=== PATIENT | female | born 1970 | race Caucasian/White ===

== ENCOUNTER → 2020-10-28 09:04 | Outpatient (BNVA) | payer MEDICARE, MEDICAID, SELFPAY | PROVIDERS: Visit Provider Physician Assistant | DX: M77.01 Medial epicondylitis, right elbow (principal) | CPT/HCPCS: 99202 ==

== ENCOUNTER 2020-12-08 15:00 | Outpatient (RCR) | payer MEDICARE, MEDICAID, SELFPAY ==
--- NOTE | 2020-11-03 09:02 | MHC.OT.OEV ---
[address] [phone] F: [phone] Occupational Therapy Evaluation Diagnosis: Right medial epicondylitis Date of Onset: 10/10/20 Date of Surgery: Attending Provider: Kayla Lynch PA-C Prescribed Treatment: Eval and Treat MD Follow Up Appointment: History of Current Condition: Pt woke w/ pain in her posterior elbow, worse w/ activity. Referred to [facility] and now to OT for conservative treatment. Will return to ortho for cortisone injection if no positive change. 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 w/ daily activities, watches Living Situation, Family and/or Social Support: Lives w/ boyfriend Current Level of Function and Occupation Self Care, Employment, Leisure: Difficulty stapling tags to clothes Sleep: Terrible Driving: WNL Vision: Balance: Pain Assessment Pain Score: 5 Pain Scale Used: Numeric (0 - 10) Pain Location and Description: Pain free at rest Ache in posterior elbow Tenderness to palpate right medial epicondye Aggravating Factors: Gripping, bending, forceful use Alleviating Factors: Uses non-dominant hand more offer Ice Ibuprophen Tylenol Skin and Soft Tissue Assessment Skin and Soft Tissue: Comments: Nerve assessment Ulnar Nerve: Right Impaired Median Nerve: Radial Nerve: Comments: D5 add 4/5 Sensory Assessment Temperature: WFL Light Touch: WFL Proprioception: WFL Vibration: Comments: [place] 3.61 Edema Assessment Upper Extremity: Right Impaired Lower Extremity: Comments: Mild edema in mid medial forearm and at medial epicondyle Dexterity Assessment Dexterity: WFL Comments: Special Tests Comments: Pain w/ resisted wrist flexion AROM(PROM) Strength Cervical Cervical Flexion: Cervical Extension: Cervical Lateral Flexion: Cervical Rotation: Comments: WNL Shoulder Flexion: Extension: Abduction: Internal Rotation: External Rotation: Comments: WNL Flexion: Extension: Abduction: Internal Rotation: External Rotation: Comments: Elbow Flexion: R 125 L 150 Extension: R 0 L 0 Pronation: Supination: Comments: Pain w/ end range ext and flex in right elbow Flexion: Extension: Pronation: Supination: Comments: Wrist Flexion: R 66 L 52 Extension: R 66 L 54 Ulnar Deviation: Radial Deviation: Comments: Flexion: R 4 L 5 Extension: Ulnar Deviation: Radial Deviation: Comments: Thumb Thumb CMC Flexion: Thumb MCP Flexion: Thumb IP Flexion: Radial Abduction: Palmar Abduction: [place] (Kapandji 0-10): Comments: Digits Index MCP: PIP: DIP: Long MCP: PIP: DIP: Ring MCP: PIP: DIP: Small MCP: PIP: DIP: Comments: WFL Gross Grasp: R 24 L 35 (elbow flex) Lateral Pinch: Two-Point Pinch: Three-Jaw Toño: Comments: R GG 20lb w/ elbow extened and pain Patient Education Primary Language: German 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 Patient demonstrates Patient verbalizes Barriers to Learning: None Readiness for Learning: Accepting Who was educated? Patient Comments: Medial Epi program Plan of Care Assessment: Mary presents w/ about two weeks of persistent pain in right medial and posterior elbow. 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 She has pain w/ end range elbow flex and ext, with decreased elbow flex. She also has tenderness to palpate medial epicondyle and w/ resisted wrist extension. She will benefit from cont'd OT services for conservative management of medial epicondylitis. STG Duration: 2 weeks Short Term Goals: Ind w/ activity modification Ind w/ CFB wear Ind w/ sleep modifications Right gross grasp >30 lb Pt to progress to eccentric exercises for HEP LTG Duration: 6 weeks Long-Term Goals: Quickdash score <20 Right gross grasp >35lb Full pain free elbow ROM <2/10 activity w/ work tasks Frequency and Duration: The patient will be seen 6 weeks Treatment Plan: Therapeutic Exercise Therapeutic Activity Home Exercise Program Splinting Patient Education Edema Control ADL Training Ultrasound NMES Iontophoresis MHP Cold Packs Soft Tissue Mobilization Kinesiotaping Electronically Signed By: Lizzy Grullon OTR/L Reviewed/agree with student documentation: N/A Therapist: Please sign and return to therapist, Thank you for your referral.
--- NOTE | 2020-12-13 08:40 | MHC.OT.DC ---
[address] [phone] F: [phone] Occupational Therapy Discharge Note Provider: Kayla Lynch PA-C Diagnosis: Right medial epicondylitis Date of Evaluation: 11/03/20 Date of Discharge: 12/08/20 Treatments to Date: 9 Discharge Status: Achieved Goals Improved Function Independent with HEP Discharge Summary: Low pain in right medial epicondyle, good follow through w/ CFB wear, minimal functional deficits. Gross grasp R 25lb (pain free) L 42lb QuickDASH score 7.5 Electronically Signed By: Lizzy Grullon, OTR/L Please Sign and return to therapist, thank you for your referral.
== END 2020-12-13 08:44 | disposition other institution (70) ==
LOC: HO.OT 15:00
PROVIDERS: PCP Internal Medicine; Visit Provider Physician Assistant
DX: M77.01 Medial epicondylitis, right elbow (principal)
CPT/HCPCS: 97033; 97035; 97110; 97140; 97165

== ENCOUNTER 2021-01-26 09:07 | Outpatient (REF) | payer MEDICARE, MEDICAID, SELFPAY ==
--- NOTE | ~2021-01-26 | MM_ITS ---
EXAMINATION: MM SCREENING DIGITAL BREAST TOMOSYNTHESIS, BILATERAL CLINICAL INFORMATION: Screening. Asymptomatic. The lifetime risk of breast cancer based on the Tyrer-Cuzick Model is 6%. COMPARISON: Mammography: 08/29/2018, 08/13/2017, outside mammography 05/11/2016 ([facility]). TECHNIQUE: Digital breast tomosynthesis is performed in both the craniocaudal and mediolateral oblique views along with computer-aided detection (CAD). Synthesized 2D images are generated from the tomosynthesis. Additional right MLO view is provided. FINDINGS: There are scattered areas of fibroglandular density (ACR BI-RADS breast composition Category b). There are no significant masses, abnormal calcifications, or other abnormalities. Parenchymal pattern is similar to prior studies. There is incidental intramammary node posterior upper outer left breast. Skin contours are smooth. No developing density. No significant changes. MM/MM tomosynthesis screening BI IMPRESSION: No mammographic evidence of malignancy. ASSESSMENT: BI-RADS 2: Benign RECOMMENDATION: Routine annual mammography screening. This patient's information was entered into a reminder system with a target due date for their next mammogram.
== END 2021-01-26 09:08 | disposition home or self-care (01) ==
LOC: HO.MAMMO 09:07
PROVIDERS: Visit Provider Physician Assistant
DX: Z12.31 Encounter for screening mammogram for malignant neoplasm of breast (principal)
CPT/HCPCS: 77063; 77067

== ENCOUNTER 2021-10-10 11:44 | Outpatient (REF) | payer MEDICARE, MEDICAID, SELFPAY ==
--- NOTE | ~2021-10-10 | XR_ITS ---
EXAMINATION: XR KNEE, RIGHT CLINICAL INFORMATION: Pain COMPARISON: None TECHNIQUE: Four views of the right knee. FINDINGS: Bone alignment is normal. No acute fracture or dislocation is seen. There is a small soft tissue calcification or ossification adjacent to the fibular head and lateral tibial plateau, question related to old trauma. The joint spaces are normal. There are osteophytes at the quadriceps tendon insertion and patellar tendon origin and insertion. There is no joint effusion. XR/XR knee RT 4V IMPRESSION: Mild degenerative changes.
[2021-10-10 14:04] LABS: MANUAL DIFF FLAG NO
[2021-10-10 14:11] LABS: Basophils Percent Auto 0.3 % (0-2); Eosinophils Percent Auto 0.3 % (0-4); Hematocrit 38.4 % (37.0-47.0); Hemoglobin 11.8 g/dl (12.0-16.0); Imm Gran Abs Auto 0.05 X10*3/uL (0.00-0.03); Imm Gran Pct Auto 0.4 % (0.0-0.4); Lymphocytes Absolute Auto 1.5 X10*3/uL (1.2-4.9); Lymphocytes Percent Auto 12.5 % (20-40); Mean Corpuscular HGB Conc 30.7 g/dl (31.0-35.0); Mean Corpuscular Hemoglobin 30.5 pg (27.0-33.0); Mean Corpuscular Volume 99.2 fL (80.0-98.0); Mean Platelet Volume 11.6 fL (9.4-12.3); Monocytes Absolute Auto 0.9 X10*3/uL (0.1-1.2); Monocytes Percent Auto 7.7 % (2-11); Neutrophils Absolute Auto 9.4 x10*3/uL (2.0-8.3); Neutrophils Percent Auto 78.8 % (45-73); Platelet Count 307 X10*3/uL (160-400); Red Blood Count 3.87 X10*6/uL (4.20-5.50); Red Cell Distribution Width 14.4 % (11.0-16.0); White Blood Count 11.9 X10*3/uL (4.8-10.8)
[2021-10-10 14:21] LABS: Alanine Aminotransferase 30 U/L (0-31); Albumin Level 4.4 g/dL (3.5-5.0); Alkaline Phosphatase 132 U/L (39-117); Anion Gap 15 (12-20); Aspartate Amino Transferase 23 U/L (5-31); Bilirubin Total 0.4 mg/dL (0.0-1.0); Blood Urea Nitrogen 17 mg/dL (9-16); Calcium 9.7 mg/dL (8.4-10.2); Carbon Dioxide 25 mmol/L (22-29); Chloride 103 mmol/L (96-108); Estimated Glomerular Filt Rate 54; Glucose Random 103 mg/dL (60-115); Potassium 4.4 mmol/L (3.3-5.1); Sodium 139 mmol/L (135-145); Total Protein 7.4 g/dL (6.5-8.0)
[2021-10-10 14:45] LABS: Thyroid Stimulating Hormone 1.03 uIU/mL (0.32-4.0)
== END 2021-10-10 11:45 | disposition home or self-care (01) ==
LOC: HO.HMGCX 11:44
PROVIDERS: PCP Internal Medicine; Visit Provider Physician Assistant
DX: M25.561 Pain in right knee (principal); I10 Essential (primary) hypertension; E03.8 Other specified hypothyroidism
CPT/HCPCS: 36415; 73564; 80053; 84439; 84443; 85025

== ENCOUNTER 2022-05-05 18:37 | Emergency (ER) | payer MEDICARE, MEDICAID, SELFPAY ==
[2022-05-05 20:02] VITALS: BP 119/67; PULSE 70; RESP 16; TEMP 37.1; O2SAT 95; BMI 33.7
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
== END 2022-05-05 22:57 | disposition home or self-care (01) ==
PROVIDERS: Emergency Provider Emergency Medicine; PCP Internal Medicine
DX: Z04.89 Encounter for examination and observation for other specified reasons (principal)
CPT/HCPCS: 99282

== ENCOUNTER 2022-05-23 12:31 | Outpatient (REF) | payer MEDICARE, MEDICAID, SELFPAY ==
--- NOTE | ~2022-05-23 | MM_ITS ---
EXAMINATION: MM SCREENING DIGITAL BREAST TOMOSYNTHESIS, BILATERAL CLINICAL INFORMATION: Screening. Asymptomatic. The lifetime risk of breast cancer based on the Tyrer-Cuzick Model is 6%. COMPARISON: Mammography: 01/26/2021, 08/29/2018, 08/13/2017 TECHNIQUE: Digital breast tomosynthesis is performed in both the craniocaudal and mediolateral oblique views along with computer-aided detection (CAD). Synthesized 2D images are generated from the tomosynthesis. FINDINGS: There are scattered areas of fibroglandular density (ACR BI-RADS breast composition Category b). There are no significant masses, abnormal calcifications, or other abnormalities. Parenchymal pattern is similar to prior studies. There is no developing density or architectural abnormality. The axilla and skin contours are unremarkable. No significant changes. MM/MM tomosynthesis screening BI IMPRESSION: No mammographic evidence of malignancy. ASSESSMENT: BI-RADS 1: Negative RECOMMENDATION: Routine annual mammography screening. This patient's information was entered into a reminder system with a target due date for their next mammogram.
== END 2022-05-23 12:32 | disposition home or self-care (01) ==
LOC: HO.MAMMO 12:31
PROVIDERS: Visit Provider Internal Medicine
DX: Z12.31 Encounter for screening mammogram for malignant neoplasm of breast (principal)
CPT/HCPCS: 77063; 77067

== ENCOUNTER 2022-11-02 15:10 | Emergency (ER) | payer MEDICARE, MEDICAID, SELFPAY ==
[2022-11-02 15:36] VITALS: BP 139/76; PULSE 73; RESP 16; TEMP 36.6; O2SAT 97; BMI 34.3
--- NOTE | 2022-11-02 15:36 | ED_ITS ---
HPI - General Adult General Chief complaint: General Medical Stated complaint: fecal incontinence? Time Seen by Provider: 11/02/22 20:59 Related Data Home Medications Medication Instructions Recorded Confirmed buspirone 15 mg tablet 15 mg PO BID 10/28/20 fluoxetine 20 mg capsule 20 mg PO DAILY 10/28/20 fluoxetine 40 mg capsule 40 mg PO QAM 10/28/20 ibuprofen 800 mg tablet 800 mg PO TID 10/28/20 lamotrigine 150 mg tablet 300 mg PO DAILY 10/28/20 levothyroxine 50 mcg tablet 50 mcg PO DAILY 10/28/20 lisinopril 5 mg tablet 5 mg PO DAILY 10/28/20 melatonin 5 mg tablet 10 mg PO BEDTIME PRN 10/28/20 metoprolol tartrate 50 mg tablet 50 mg PO DAILY 10/28/20 naltrexone 50 mg tablet 50 mg PO BEDTIME 10/28/20 simvastatin 20 mg tablet 20 mg PO DAILY 10/28/20 sumatriptan succinate 100 mg tablet 100 mg PO DAILY PRN 10/28/20 tramadol 50 mg tablet 50 mg PO DAILY PRN 10/28/20 valacyclovir 500 mg tablet 500 mg PO DAILY 10/28/20 Previous Rx's Medication Instructions Recorded ondansetron 4 mg disintegrating 4 mg PO Q8H PRN nausea and 11/02/22 tablet vomiting #10 tabs vancomycin 125 mg capsule 125 mg PO QID 14 days #56 caps 11/02/22 levofloxacin 750 mg tablet 750 mg PO DAILY 7 days #7 tabs 11/06/22 loperamide 2 mg capsule 2 mg PO Q6H PRN loose stool #30 11/06/22 (Anti-Diarrheal (loperamide)) caps Allergies Allergy/AdvReac Type Severity Reaction Status Date / Time promethazine [From PHENERGAN] Allergy Severe ALTERED Verified 11/05/22 22:38 MENTAL STATUS meperidine [Demerol] Allergy Unknown nausea Verified 11/05/22 22:38 fenegrine Allergy Mild Nausea Uncoded 10/28/20 09:17 COUNT INCLUDES THE [facility] Past Medical History Medical History Bipolar 1 disorder Depression High cholesterol Hypertension Surgical History History of bunionectomy of right great toe History of carpal tunnel surgery of left wrist History of carpal tunnel surgery of right wrist History of section History of hysterectomy Family History Family History Mother No problems noted. Father No problems noted. 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 Admits recently finished abx 1 week ago. Denies back pain, injury or fall. Denies fever, chills abd soft with RLQ & LLQ ttp, no rebound or guarding Labs, UA, C diff/stool studies ordered Medications Administered Discontinued Medications Generic Name Dose Route Start Last Admin Trade Name Freq PRN Reason Stop Dose Admin Vancomycin HCl 125 mg 11/02/22 21:10 11/02/22 22:03 Vancomycin Hcl 125 Mg Capsule PO 11/02/22 21:11 125 mg ONCE ONE Administration Medical Decision Making Lab Data 11/02/22 15:46 11/02/22 15:46 Labs: Lab Results 11/02/22 11/02/22 11/02/22 Range/Units 15:46 15:46 20:40 WBC 9.6 (4.8-10.8) X10*3/uL RBC 4.03 L (4.20-5.50) X10*6/uL Hgb 12.3 (12.0-16.0) g/dl Hct 38.5 (37.0-47.0) % MCV 95.5 (80.0-98.0) fL MCH 30.5 (27.0-33.0) pg MCHC 31.9 (31.0-35.0) g/dl RDW 13.8 (11.0-16.0) % Plt Count 278 (160-400) X10*3/uL MPV 10.2 (9.4-12.3) fL Immature Gran % (Auto) 0.3 (0.0-0.4) % Neut % (Auto) 65.2 (45-73) % Lymph % (Auto) 20.4 (20-40) % [place] % (Auto) 11.0 (2-11) % Eos % (Auto) 2.7 (0-4) % Baso % (Auto) 0.4 (0-2) % Lymph # (Auto) 2.0 (1.2-4.9) X10*3/uL [place] # (Auto) 1.1 (0.1-1.2) X10*3/uL Eos # (Auto) 0.3 (0.0-0.4) X10*3/uL Baso # (Auto) 0.0 (0.0-0.2) X10*3/uL Abs Immat Gran (auto) 0.03 (0.00-0.03) X10*3/uL Absolute Neuts (auto) 6.3 (2.0-8.3) x10*3/uL Absolute Nucleated RBC 0.000 (0.0-0.012) X10*3/uL Nucleated RBC % (auto) 0.0 (0.0-0.2) /100WBC Sodium 140 (135-145) mmol/L Potassium 4.3 (3.3-5.1) mmol/L Chloride 105 (96-108) mmol/L Carbon Dioxide 25 (22-29) mmol/L Anion Gap 14 (12-20) BUN 17 H (9-16) mg/dL Creatinine 1.12 (0.5-1.4) mg/dL Estim Creat Clear Calc 52.0 Estimated GFR 51 Random Glucose 88 (60-115) mg/dL Calcium 9.1 D (8.4-10.2) mg/dL Magnesium 1.9 (1.6-2.6) mg/dL Total Bilirubin 0.4 (0.0-1.0) mg/dL Direct Bilirubin < 0.2 (0.0-0.5) mg/dL AST 19 (5-31) U/L ALT 20 (0-31) U/L Alkaline Phosphatase 122 H (39-117) U/L Total Protein 7.3 (6.5-8.0) g/dL Albumin 4.4 (3.5-5.0) g/dL Lipase 69 (8-78) U/L Stool Occult Blood NEGATIVE (NEGATIVE) Stl C. cayetanensis PCR (Not Detect.) Stool Rotavirus A PCR (Not Detect.) Stl Adenov F 40/41 PCR (Not Detect.) Stool Astrovirus (PCR) (Not Detect.) Stool Campylobacter PCR (Not Detect.) Stool Cryptosporidium PCR (Not Detect.) Stl Sh Tox Pr E STEC PCR (Not Detect.) Stool E coli O157 PCR (Not Detect.) Stl Enterotoxigenic E PCR (Not Detect.) Stool EPEC (PCR) (Not Detect.) Stool EAEC (PCR) (Not Detect.) Stl E. histolytica PCR (Not Detect.) Stool Giardia Lamblia PCR (Not Detect.) Stl P. shigelloides PCR (Not Detect.) Stool Salmonella PCR (Not Detect.) Stool Sapovirus (PCR) (Not Detect.) Stl Shigella/EIEC PCR (Not Detect.) St Y.enterocolitica PCR (Not Detect.) Stool Vibrio (PCR) (Not Detect.) Stl Vibrio cholerae PCR (Not Detect.) Stl Norovirus GI/GII PCR (Not Detect.) C. difficile Tox B Gene (Negative) 11/02/22 11/02/22 Range/Units 21:10 21:10 WBC (4.8-10.8) X10*3/uL RBC (4.20-5.50) X10*6/uL Hgb (12.0-16.0) g/dl Hct (37.0-47.0) % MCV (80.0-98.0) fL MCH (27.0-33.0) pg MCHC (31.0-35.0) g/dl RDW (11.0-16.0) % Plt Count (160-400) X10*3/uL MPV (9.4-12.3) fL Immature Gran % (Auto) (0.0-0.4) % Neut % (Auto) (45-73) % Lymph % (Auto) (20-40) % [place] % (Auto) (2-11) % Eos % (Auto) (0-4) % Baso % (Auto) (0-2) % Lymph # (Auto) (1.2-4.9) X10*3/uL [place] # (Auto) (0.1-1.2) X10*3/uL Eos # (Auto) (0.0-0.4) X10*3/uL Baso # (Auto) (0.0-0.2) X10*3/uL Abs Immat Gran (auto) (0.00-0.03) X10*3/uL Absolute Neuts (auto) (2.0-8.3) x10*3/uL Absolute Nucleated RBC (0.0-0.012) X10*3/uL Nucleated RBC % (auto) (0.0-0.2) /100WBC Sodium (135-145) mmol/L Potassium (3.3-5.1) mmol/L Chloride (96-108) mmol/L Carbon Dioxide (22-29) mmol/L Anion Gap (12-20) BUN (9-16) mg/dL Creatinine (0.5-1.4) mg/dL Estim Creat Clear Calc Estimated GFR Random Glucose (60-115) mg/dL Calcium (8.4-10.2) mg/dL Magnesium (1.6-2.6) mg/dL Total Bilirubin (0.0-1.0) mg/dL Direct Bilirubin (0.0-0.5) mg/dL AST (5-31) U/L ALT (0-31) U/L Alkaline Phosphatase (39-117) U/L Total Protein (6.5-8.0) g/dL Albumin (3.5-5.0) g/dL Lipase (8-78) U/L Stool Occult Blood (NEGATIVE) Stl C. cayetanensis PCR Not Detected (Not Detect.) Stool Rotavirus A PCR Not Detected (Not Detect.) Stl Adenov F 40/41 PCR Not Detected (Not Detect.) Stool Astrovirus (PCR) Not Detected (Not Detect.) Stool Campylobacter PCR Not Detected (Not Detect.) Stool Cryptosporidium PCR Not Detected (Not Detect.) Stl Sh Tox Pr E STEC PCR Not Detected (Not Detect.) Stool E coli O157 PCR Not applicable (Not Detect.) Stl Enterotoxigenic E PCR Not Detected (Not Detect.) Stool EPEC (PCR) Detected A (Not Detect.) Stool EAEC (PCR) Not Detected (Not Detect.) Stl E. histolytica PCR Not Detected (Not Detect.) Stool Giardia Lamblia PCR Not Detected (Not Detect.) Stl P. shigelloides PCR Not Detected (Not Detect.) Stool Salmonella PCR Not Detected (Not Detect.) Stool Sapovirus (PCR) Not Detected (Not Detect.) Stl Shigella/EIEC PCR Not Detected (Not Detect.) St Y.enterocolitica PCR Not Detected (Not Detect.) Stool Vibrio (PCR) Not Detected (Not Detect.) Stl Vibrio cholerae PCR Not Detected (Not Detect.) Stl Norovirus GI/GII PCR Not Detected (Not Detect.) C. difficile Tox B Gene NEGATIVE (Negative) Discharge Plan Discharge Clinical Impression: C. difficile colitis Patient Disposition: Home, Self-Care Instructions: C. Diff (Clostridioides Difficile) Infection (ED), Acute Diarrhea (ED) Additional Instructions: You were seen today for fecal incontinence, diarrhea, change in the smell of her stool. You were recently on antibiotics. Your diagnosis most concerning for C diff colitis. This will be treated with oral antibiotics, vancomycin 125 mg 4 times daily. I am recommending taking probiotic, fiber supplementation, bananas, rice to help bulk your stool. Make sure to keep herself appropriately hydrated as she could become dehydrated with diarrhea. Should you have severe abdominal pain, high fevers, any other concerning symptoms, please return to the emergency department for re-evaluation. Prescriptions: New vancomycin 125 mg capsule 125 mg PO QID 14 Days Qty: 56 0RF ondansetron 4 mg tablet,disintegrating 4 mg PO Q8H PRN (Reason: nausea and vomiting) Qty: 10 0RF No Action loperamide [Anti-Diarrheal (loperamide)] 2 mg capsule 2 mg PO Q6H PRN (Reason: loose stool) Qty: 30 0RF levofloxacin 750 mg tablet 750 mg PO DAILY 7 Days Qty: 7 0RF Interventions: ED Discharge Assessment Last Done: 11/02/22 22:24 Discharge Date/Time: 11/02/22 22:25
[2022-11-02 15:49] LABS: MANUAL DIFF FLAG NO
[2022-11-02 15:51] LABS: Basophils Percent Auto 0.4 % (0-2); Eosinophils Absolute Auto 0.3 X10*3/uL (0.0-0.4); Eosinophils Percent Auto 2.7 % (0-4); Hematocrit 38.5 % (37.0-47.0); Hemoglobin 12.3 g/dl (12.0-16.0); Imm Gran Abs Auto 0.03 X10*3/uL (0.00-0.03); Imm Gran Pct Auto 0.3 % (0.0-0.4); Lymphocytes Percent Auto 20.4 % (20-40); Mean Corpuscular HGB Conc 31.9 g/dl (31.0-35.0); Mean Corpuscular Hemoglobin 30.5 pg (27.0-33.0); Mean Corpuscular Volume 95.5 fL (80.0-98.0); Mean Platelet Volume 10.2 fL (9.4-12.3); Monocytes Absolute Auto 1.1 X10*3/uL (0.1-1.2); Neutrophils Absolute Auto 6.3 x10*3/uL (2.0-8.3); Neutrophils Percent Auto 65.2 % (45-73); Platelet Count 278 X10*3/uL (160-400); Red Blood Count 4.03 X10*6/uL (4.20-5.50); Red Cell Distribution Width 13.8 % (11.0-16.0); White Blood Count 9.6 X10*3/uL (4.8-10.8)
[2022-11-02 16:17] LABS: Alanine Aminotransferase 20 U/L (0-31); Albumin Level 4.4 g/dL (3.5-5.0); Alkaline Phosphatase 122 U/L (39-117); Anion Gap 14 (12-20); Aspartate Amino Transferase 19 U/L (5-31); Bilirubin Direct < 0.2 mg/dL (0.0-0.5); Bilirubin Total 0.4 mg/dL (0.0-1.0); Blood Urea Nitrogen 17 mg/dL (9-16); Calcium 9.1 mg/dL (8.4-10.2); Carbon Dioxide 25 mmol/L (22-29); Chloride 105 mmol/L (96-108); Estimated Glomerular Filt Rate 51; Glucose Random 88 mg/dL (60-115); Lipase 69 U/L (8-78); Magnesium 1.9 mg/dL (1.6-2.6); Potassium 4.3 mmol/L (3.3-5.1); Sodium 140 mmol/L (135-145); Total Protein 7.3 g/dL (6.5-8.0)
[2022-11-02 20:43] VITALS: BP 140/80; PULSE 66; RESP 18; TEMP 37.1; O2SAT 98
[2022-11-02 20:50] LABS: OBS Int Ctl Valid YES; OBS1 NEGATIVE (NEGATIVE)
--- NOTE | 2022-11-02 21:12 | ED.GENADULT ---
HPI - General Adult General Chief complaint: General Medical Stated complaint: fecal incontinence? Time Seen by Provider: 11/02/22 20:59 Source: patient Mode of arrival: ambulatory Limitations: no limitations History of Present Illness HPI narrative: 52-year-old female with history of fecal incontinence presents with loose stool incontinence for several days particularly over the last day particular. She did have a recent course of antibiotics for skin infection. She has had no fever but had chills proximally for 5 days ago. She had some intermittent abdominal discomfort. Generalized. Crampy in nature. Does not radiate. It is not clearly exacerbated relieved by anything. She denies any blood in her stool. She does report that her stool has a different smell and normal. Patient also also had some mild nausea but no vomiting. Related Data Home Medications Medication Instructions Recorded Confirmed buspirone 15 mg tablet 15 mg PO BID 10/28/20 fluoxetine 20 mg capsule 20 mg PO DAILY 10/28/20 fluoxetine 40 mg capsule 40 mg PO QAM 10/28/20 ibuprofen 800 mg tablet 800 mg PO TID 10/28/20 lamotrigine 150 mg tablet 300 mg PO DAILY 10/28/20 levothyroxine 50 mcg tablet 50 mcg PO DAILY 10/28/20 lisinopril 5 mg tablet 5 mg PO DAILY 10/28/20 melatonin 5 mg tablet 10 mg PO BEDTIME PRN 10/28/20 metoprolol tartrate 50 mg tablet 50 mg PO DAILY 10/28/20 naltrexone 50 mg tablet 50 mg PO BEDTIME 10/28/20 simvastatin 20 mg tablet 20 mg PO DAILY 10/28/20 sumatriptan succinate 100 mg tablet 100 mg PO DAILY PRN 10/28/20 tramadol 50 mg tablet 50 mg PO DAILY PRN 10/28/20 valacyclovir 500 mg tablet 500 mg PO DAILY 10/28/20 Previous Rx's Medication Instructions Recorded ondansetron 4 mg disintegrating 4 mg PO Q8H PRN nausea and 11/02/22 tablet vomiting #10 tabs vancomycin 125 mg capsule 125 mg PO QID 14 days #56 caps 11/02/22 Allergies Allergy/AdvReac Type Severity Reaction Status Date / Time promethazine [From PHENERGAN] Allergy Severe ALTERED Verified 10/28/20 09:17 MENTAL STATUS meperidine [Demerol] Allergy Unknown nausea Verified 10/28/20 09:17 fenegrine Allergy Mild Nausea Uncoded 10/28/20 09:17 [facility] Past Medical History Medical History Bipolar 1 disorder Depression High cholesterol Hypertension Surgical History History of bunionectomy of right great toe History of carpal tunnel surgery of left wrist History of carpal tunnel surgery of right wrist History of section History of hysterectomy Family History Family History Mother No problems noted. Father No problems noted. 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 She has a history of this. However, she reports change in the smell of her stool. She has been on recent antibiotics. This is concerning for C diff colitis. Examination was unremarkable. There is no significant abdominal tenderness, rebound or guarding. Doubt acute abdomen. Doubt the need for imaging studies at this time. Stool sample has been taken and sent for analysis. That will not be available for least 1 day. Will start the patient on oral vancomycin, antiemetics. There are no significant electrolyte abnormalities torn hospitalization. I discussed all discharge instructions reasons for to return to the hospital. All questions were addressed and answered of note, patient was frustrated open to be admitted for her incontinence. Medical Decision Making Medical Decision Making MDM Narrative: 52-year-old female presents with incontinence. She had recent antibiotics and concerning for C diff colitis. She has change in the smell of her stool as well as increasing watery stools. There has been no blood. Examination was benign. Differential diagnosis includes C diff colitis, colitis, diverticulitis, bacterial overgrowth, gastroenteritis. Patient will have routine laboratory analysis including a CBC, chemistry. Will rule out hypokalemia is a possible comorbidity associated with diarrhea. Will look for signs of hyponatremia hypochloremia. Patient does not appear dehydrated. Patient may require intravenous fluids if she becomes symptomatic. Will consider hospitalization pending laboratory analysis. Differential Diagnosis Differential Diagnoses: The differential diagnosis associated with the presentation includes (C diff colitis, gastroenteritis, bacterial overgrowth, diverticulitis, IBS, IBD) C diff colitis Admission/Observation Consideration of admission/observation: Escalation of care including admission/observation considered Lab Data MDM Lab Attestation statement: I reviewed the patient's lab results. 11/02/22 15:46 11/02/22 15:46 Labs: Lab Results 11/02/22 11/02/22 11/02/22 Range/Units 15:46 15:46 20:40 WBC 9.6 (4.8-10.8) X10*3/uL RBC 4.03 L (4.20-5.50) X10*6/uL Hgb 12.3 (12.0-16.0) g/dl Hct 38.5 (37.0-47.0) % MCV 95.5 (80.0-98.0) fL MCH 30.5 (27.0-33.0) pg MCHC 31.9 (31.0-35.0) g/dl RDW 13.8 (11.0-16.0) % Plt Count 278 (160-400) X10*3/uL MPV 10.2 (9.4-12.3) fL Immature Gran % (Auto) 0.3 (0.0-0.4) % Neut % (Auto) 65.2 (45-73) % Lymph % (Auto) 20.4 (20-40) % [place] % (Auto) 11.0 (2-11) % Eos % (Auto) 2.7 (0-4) % Baso % (Auto) 0.4 (0-2) % Lymph # (Auto) 2.0 (1.2-4.9) X10*3/uL [place] # (Auto) 1.1 (0.1-1.2) X10*3/uL Eos # (Auto) 0.3 (0.0-0.4) X10*3/uL Baso # (Auto) 0.0 (0.0-0.2) X10*3/uL Abs Immat Gran (auto) 0.03 (0.00-0.03) X10*3/uL Absolute Neuts (auto) 6.3 (2.0-8.3) x10*3/uL Absolute Nucleated RBC 0.000 (0.0-0.012) X10*3/uL Nucleated RBC % (auto) 0.0 (0.0-0.2) /100WBC Sodium 140 (135-145) mmol/L Potassium 4.3 (3.3-5.1) mmol/L Chloride 105 (96-108) mmol/L Carbon Dioxide 25 (22-29) mmol/L Anion Gap 14 (12-20) BUN 17 H (9-16) mg/dL Creatinine 1.12 (0.5-1.4) mg/dL Estim Creat Clear Calc 52.0 Estimated GFR 51 Random Glucose 88 (60-115) mg/dL Calcium 9.1 D (8.4-10.2) mg/dL Magnesium 1.9 (1.6-2.6) mg/dL Total Bilirubin 0.4 (0.0-1.0) mg/dL Direct Bilirubin < 0.2 (0.0-0.5) mg/dL AST 19 (5-31) U/L ALT 20 (0-31) U/L Alkaline Phosphatase 122 H (39-117) U/L Total Protein 7.3 (6.5-8.0) g/dL Albumin 4.4 (3.5-5.0) g/dL Lipase 69 (8-78) U/L Stool Occult Blood NEGATIVE (NEGATIVE) External Record Review External record reviewed: Office record (Orthopedic consultation 10/28/2020 for epicondylitis of the right elbow) Tests considered The following testing was considered but not selected: CT scan Prescription Management I considered prescription management with: Antiviral Chronic Conditions Patient?s care impacted by: Hypertension Discharge Plan Discharge Clinical Impression: C. difficile colitis Patient Disposition: Home, Self-Care Instructions: C. Diff (Clostridioides Difficile) Infection (ED), Acute Diarrhea (ED) Additional Instructions: You were seen today for fecal incontinence, diarrhea, change in the smell of her stool. You were recently on antibiotics. Your diagnosis most concerning for C diff colitis. This will be treated with oral antibiotics, vancomycin 125 mg 4 times daily. I am recommending taking probiotic, fiber supplementation, bananas, rice to help bulk your stool. Make sure to keep herself appropriately hydrated as she could become dehydrated with diarrhea. Should you have severe abdominal pain, high fevers, any other concerning symptoms, please return to the emergency department for re-evaluation. Prescriptions: New vancomycin 125 mg capsule 125 mg PO QID 14 Days Qty: 56 0RF ondansetron 4 mg tablet,disintegrating 4 mg PO Q8H PRN (Reason: nausea and vomiting) Qty: 10 0RF
[2022-11-02 22:03] LABS: CDiff Gene PCR NEGATIVE (Negative)
[2022-11-02] MEDS: vancomycin HCL 125 MG CAPSULE PO (22:03)
--- NOTE | 2022-11-02 22:23 | PC.NURSE ---
pt medicated according to mar. pt provided with additional pants prior to going home. pt provided with discharge packet. pt verbalized discharge plan
[2022-11-03 10:34] LABS: Adenovirus F 40/41 Not Detected (Not Detect.); Astrovirus Not Detected (Not Detect.); Campylobacter Not Detected (Not Detect.); Cryptosporidium Not Detected (Not Detect.); Cyclospora cayetanensis Not Detected (Not Detect.); E. coli EAEC Not Detected (Not Detect.); E. coli EPEC Detected (Not Detect.); E. coli ETEC Not Detected (Not Detect.); E. coli STEC Not Detected (Not Detect.); Entamoeba histolytica Not Detected (Not Detect.); Giardia lamblia Not Detected (Not Detect.); Norovirus GI/GII Not Detected (Not Detect.); Plesiomonas shigelloides Not Detected (Not Detect.); Rotavirus A Not Detected (Not Detect.); Salmonella Not Detected (Not Detect.); Sapovirus Not Detected (Not Detect.); Shigella sp./EIEC Not Detected (Not Detect.); Vibrio Not Detected (Not Detect.); Vibrio Cholerae Not Detected (Not Detect.); Yersinia enterocolitica Not Detected (Not Detect.)
== END 2022-11-02 22:25 | disposition home or self-care (01) ==
PROVIDERS: Physician Assistant; Emergency Provider Emergency Medicine; PCP Internal Medicine
DX: A04.72 Enterocolitis due to Clostridium difficile, not specified as recurrent (principal); R15.9 Full incontinence of feces; Z20.822 Contact with and (suspected) exposure to COVID-19; Z20.828 Contact with and (suspected) exposure to other viral communicable diseases; Z79.899 Other long term (current) drug therapy
CPT/HCPCS: 36415; 80048; 80076; 82272; 83690; 83735; 85025; 87493; 87507; 99283; 99284

== ENCOUNTER 2022-11-05 22:16 | Emergency (ER) | payer MEDICARE, MEDICAID, SELFPAY ==
--- NOTE | ~2022-11-05 | CT_ITS ---
EXAMINATION: CT ABDOMEN AND PELVIS WITH CONTRAST CLINICAL INFORMATION: Abdominal pain . C. difficile. COMPARISON: 05/27/2019 TECHNIQUE: Multidetector volumetric images were obtained from the superior aspect of the liver through the pubic symphysis following administration 85 mL of Omnipaque 350 intravenous contrast. Sagittal and coronal reformatted images were obtained on the technologist's workstation. Oral contrast: No This CT examination was performed using dose optimization techniques as appropriate, variously including the following: *Automated exposure control *Adjustment of mA and/or kV according to patient size (this includes techniques or standardized protocols for targeted exams where dose is matched to indication/reason for exam; i.e. extremities or head) *Use of iterative reconstruction technique DLP: 614 mGy-cm FINDINGS: LUNG BASES: The visualized lung bases are unremarkable. LIVER, GALLBLADDER, AND BILIARY TREE: The liver is normal in size, shape, and attenuation. No focal hepatic lesion or biliary ductal dilatation is present. The gallbladder is contracted with no evidence of radiopaque gallstones, gallbladder wall thickening, or obvious pericholecystic inflammatory changes. PANCREAS: Unremarkable. SPLEEN: Unremarkable. ADRENAL GLANDS: Unremarkable. KIDNEYS AND URETERS: The kidneys are normal in size, shape, and attenuation. No hydronephrosis, hydroureter, or calculi seen. No perinephric stranding. BLADDER: Unremarkable. GASTROINTESTINAL TRACT: Tiny hiatal hernia. The stomach is otherwise unremarkable. Normal caliber small bowel. No obstruction. Normal appendix. Mild wall thickening with faint adjacent inflammation involving the descending and sigmoid colon. No free air or free fluid. ABDOMINAL WALL: No significant hernia is appreciated. LYMPH NODES: Normal. VASCULAR: Normal caliber aorta with mild atherosclerotic calcification. PELVIC VISCERA: No pelvic mass. OSSEOUS STRUCTURES: No acute or suspicious osseous abnormality. Mild degenerative changes in the spine. CT/CT abdomen pelvis w IV con IMPRESSION: Mild colitis involving the descending and sigmoid colon. Fleischner guidelines were followed.
[2022-11-05 22:35] VITALS: BP 161/46; PULSE 84; RESP 18; TEMP 36.6; O2SAT 96; BMI 34.3
[2022-11-05 23:48] LABS: MANUAL DIFF FLAG NO
[2022-11-05 23:49] LABS: Basophils Percent Auto 0.4 % (0-2); Eosinophils Absolute Auto 0.2 X10*3/uL (0.0-0.4); Eosinophils Percent Auto 2.3 % (0-4); Hematocrit 39.5 % (37.0-47.0); Hemoglobin 12.9 g/dl (12.0-16.0); Imm Gran Abs Auto 0.02 X10*3/uL (0.00-0.03); Imm Gran Pct Auto 0.2 % (0.0-0.4); Lymphocytes Absolute Auto 1.8 X10*3/uL (1.2-4.9); Lymphocytes Percent Auto 17.1 % (20-40); Mean Corpuscular HGB Conc 32.7 g/dl (31.0-35.0); Mean Corpuscular Hemoglobin 30.6 pg (27.0-33.0); Mean Corpuscular Volume 93.8 fL (80.0-98.0); Mean Platelet Volume 10.1 fL (9.4-12.3); Monocytes Absolute Auto 0.9 X10*3/uL (0.1-1.2); Monocytes Percent Auto 8.9 % (2-11); Neutrophils Absolute Auto 7.3 x10*3/uL (2.0-8.3); Neutrophils Percent Auto 71.1 % (45-73); Platelet Count 292 X10*3/uL (160-400); Red Blood Count 4.21 X10*6/uL (4.20-5.50); Red Cell Distribution Width 13.7 % (11.0-16.0); White Blood Count 10.3 X10*3/uL (4.8-10.8)
[2022-11-06 00:10] LABS: Alanine Aminotransferase 23 U/L (0-31); Albumin Level 4.6 g/dL (3.5-5.0); Alkaline Phosphatase 112 U/L (39-117); Anion Gap 14 (12-20); Aspartate Amino Transferase 20 U/L (5-31); Bilirubin Direct < 0.2 mg/dL (0.0-0.5); Bilirubin Total 0.3 mg/dL (0.0-1.0); Blood Urea Nitrogen 13 mg/dL (9-16); Calcium 9.3 mg/dL (8.4-10.2); Carbon Dioxide 26 mmol/L (22-29); Chloride 104 mmol/L (96-108); Creatinine Clr Calc Pharmacy 58.8; Estimated Glomerular Filt Rate 59; Glucose Random 97 mg/dL (60-115); Lipase 73 U/L (8-78); Potassium 4.2 mmol/L (3.3-5.1); Sodium 140 mmol/L (135-145); Total Protein 7.6 g/dL (6.5-8.0)
--- NOTE | 2022-11-06 00:34 | ED.NAVMDI ---
HPI - Nausea/Vomiting/Diarrhea General Chief complaint: Nausea/Vomiting/Diarrhea Stated complaint: diarrhea,abd pain seen on 11/02 on meds Time Seen by Provider: 11/06/22 00:33 Source: patient Mode of arrival: ambulatory Limitations: no limitations History of Present Illness HPI Narrative: This is a 52-year-old female history of fecal incontinence presenting with loose stool/incontinence for few days, patient tells me she was seen here multiple times for the same complaint was told she had C diff. She reports that few weeks ago she took antibiotics for skin infection has been having diarrhea ever since, discharged on antibiotics however not making it better, reports stool still foul smelling. Reports associated nausea. She reports chills and subjective fevers. She reports intermittent abdominal cramping/discomfort it is generalized in nature. Patient states abdominal pain is not exacerbated or alleviated by anything. Denies blood in stool. Related Data Home Medications Medication Instructions Recorded Confirmed buspirone 15 mg tablet 15 mg PO BID 10/28/20 fluoxetine 20 mg capsule 20 mg PO DAILY 10/28/20 fluoxetine 40 mg capsule 40 mg PO QAM 10/28/20 ibuprofen 800 mg tablet 800 mg PO TID 10/28/20 lamotrigine 150 mg tablet 300 mg PO DAILY 10/28/20 levothyroxine 50 mcg tablet 50 mcg PO DAILY 10/28/20 lisinopril 5 mg tablet 5 mg PO DAILY 10/28/20 melatonin 5 mg tablet 10 mg PO BEDTIME PRN 10/28/20 metoprolol tartrate 50 mg tablet 50 mg PO DAILY 10/28/20 naltrexone 50 mg tablet 50 mg PO BEDTIME 10/28/20 simvastatin 20 mg tablet 20 mg PO DAILY 10/28/20 sumatriptan succinate 100 mg tablet 100 mg PO DAILY PRN 10/28/20 tramadol 50 mg tablet 50 mg PO DAILY PRN 10/28/20 valacyclovir 500 mg tablet 500 mg PO DAILY 10/28/20 Previous Rx's Medication Instructions Recorded ondansetron 4 mg disintegrating 4 mg PO Q8H PRN nausea and 11/02/22 tablet vomiting #10 tabs vancomycin 125 mg capsule 125 mg PO QID 14 days #56 caps 11/02/22 levofloxacin 750 mg tablet 750 mg PO DAILY 7 days #7 tabs 11/06/22 loperamide 2 mg capsule 2 mg PO Q6H PRN loose stool #30 11/06/22 (Anti-Diarrheal (loperamide)) caps Allergies Allergy/AdvReac Type Severity Reaction Status Date / Time promethazine [From PHENERGAN] Allergy Severe ALTERED Verified 11/05/22 22:38 MENTAL STATUS meperidine [Demerol] Allergy Unknown nausea Verified 11/05/22 22:38 fenegrine Allergy Mild Nausea Uncoded 10/28/20 09:17 Review of Systems Review of Systems: Constitutional : No Weight loss, No Fever, No Chills, + Fatigue, + Malaise ENT/Mouth : No sore throat, No Rhinorrhea Eyes: No Eye Pain, No Swelling, No Redness Cardiovascular : No Chest Pain, No SOB, No Dyspnea on Exertion, No Orthopnea, No Edema, No Palpitations Respiratory : No Cough, No Sputum, No Wheezing Gastrointestinal : + Nausea, No Vomiting, + Diarrhea, No Constipation, No abdominal Pain, No Hematochezia, No Melena Genitourinary : No Dysuria, No Urinary Frequency, No Hematuria, Musculoskeletal : No joint pain, No Myalgias, No Joint Swelling Skin : No Skin Lesions, No rash Neuro : No Weakness, No Numbness, No Dizziness, No Headache Psych : No Anxiety/Panic, No Depression All other systems reviewed and are negative Yes all other systems are reviewed and are negative [facility] Past Medical History Attestation statement: The following information was validated with the patient. Source: old records reviewed and nursing notes reviewed Medical History Bipolar 1 disorder Depression High cholesterol Hypertension Surgical History History of bunionectomy of right great toe History of carpal tunnel surgery of left wrist History of carpal tunnel surgery of right wrist History of section History of hysterectomy Family History Family History Mother No problems noted. Father No problems noted. 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 Oriented X3.? No acute distress.? Head: Normocephalic, atraumatic, no step-offs or deformities Eyes: Pupils equal, round and reactive to light.? ENT: Pharynx normal.? Neck: Normal inspection.? Neck supple.? CVS: Normal heart rate and rhythm.? Pulses normal.? Respiratory: No respiratory distress.? Breath sounds normal.? Abdomen: Soft and diffusely tender.? Skin: Skin warm and dry.? Normal skin color.? Normal skin turgor.? Extremities: No lower extremity edema.? No calf ttp. 5/5 strength to bilateral upper and lower extremities Neuro: Oriented X 3.? No motor deficit.? No sensory deficit. CN 2-12 intact Course Reevaluation(s) Reevaluation #1: CBC appears to be within normal limits. Chemistry with no acute electrolyte abnormalities requiring intervention. Will order blood cultures, lactic acid an abdominal imaging. Time: 00:39 Reevaluation #2: I did discuss this case with hospitalist, not seeing a reason for admission at this time is patient has no metabolic disturbances. Time: 00:54 Reevaluation #3: Sign out to Dr. Rivera pending imaging and dispo Time: 01:03 Medical Decision Making Medical Decision Making [facility] Narrative: 0036 The 52-year-old female with known diagnosis of C diff presenting for evaluation of abdominal pain, and continuing diarrhea. Reports associated nausea, subjective fevers and chills, poor p.o. intake. Upon chart review it appears as though patient was discharged with vancomycin 125 mg 4 times daily, this was on 11/02/2022 however, it appears as though patient tested negative for C diff. Physical exam diffusely tender. Concerns for C diff, gastroenteritis, bacterial overgrowth, diverticulitis, IBS, IBD, bacterial diarrhea. Unlikely acute abdomen, toxic megacolon, ischemic bowel. Plan basic labs. Will likely be admitted to the hospital. Differential Diagnosis Differential Diagnoses: The differential diagnosis associated with the presentation includes Concerns for C diff colitis, gastroenteritis, bacterial overgrowth, diverticulitis, IBS, IBD. Unlikely acute abdomen, toxic megacolon, ischemic bowel. Admission/Observation Consideration of admission/observation: Escalation of care including admission/observation considered Likely Consult Healthcare Provider Management of the patient was discussed with: Hospitalist (Dr. Johnson ) Lab Data MDM Lab Attestation statement: I reviewed the patient's lab results. 11/05/22 23:44 11/05/22 23:44 Labs: Lab Results 11/05/22 11/05/22 Range/Units 23:44 23:44 WBC 10.3 (4.8-10.8) X10*3/uL RBC 4.21 (4.20-5.50) X10*6/uL Hgb 12.9 (12.0-16.0) g/dl Hct 39.5 (37.0-47.0) % MCV 93.8 (80.0-98.0) fL MCH 30.6 (27.0-33.0) pg MCHC 32.7 (31.0-35.0) g/dl RDW 13.7 (11.0-16.0) % Plt Count 292 (160-400) X10*3/uL MPV 10.1 (9.4-12.3) fL Immature Gran % (Auto) 0.2 (0.0-0.4) % Neut % (Auto) 71.1 (45-73) % Lymph % (Auto) 17.1 L (20-40) % [place] % (Auto) 8.9 (2-11) % Eos % (Auto) 2.3 (0-4) % Baso % (Auto) 0.4 (0-2) % Lymph # (Auto) 1.8 (1.2-4.9) X10*3/uL [place] # (Auto) 0.9 (0.1-1.2) X10*3/uL Eos # (Auto) 0.2 (0.0-0.4) X10*3/uL Baso # (Auto) 0.0 (0.0-0.2) X10*3/uL Abs Immat Gran (auto) 0.02 (0.00-0.03) X10*3/uL Absolute Neuts (auto) 7.3 (2.0-8.3) x10*3/uL Absolute Nucleated RBC 0.000 (0.0-0.012) X10*3/uL Nucleated RBC % (auto) 0.0 (0.0-0.2) /100WBC Sodium 140 (135-145) mmol/L Potassium 4.2 (3.3-5.1) mmol/L Chloride 104 (96-108) mmol/L Carbon Dioxide 26 (22-29) mmol/L Anion Gap 14 (12-20) BUN 13 (9-16) mg/dL Creatinine 0.99 (0.5-1.4) mg/dL Estim Creat Clear Calc 58.8 Estimated GFR 59 Random Glucose 97 (60-115) mg/dL Calcium 9.3 (8.4-10.2) mg/dL Total Bilirubin 0.3 (0.0-1.0) mg/dL Direct Bilirubin < 0.2 (0.0-0.5) mg/dL AST 20 (5-31) U/L ALT 23 (0-31) U/L Alkaline Phosphatase 112 (39-117) U/L Total Protein 7.6 (6.5-8.0) g/dL Albumin 4.6 (3.5-5.0) g/dL Lipase 73 (8-78) U/L Independent Interpretation I performed an independent interpretation of an: CT Scan Core Measures AMI core measures followed: Yes Measure exclusions: not indicated Critical Care Time Critical Care Time Critical Care Time: No Discharge Plan Discharge Clinical Impression: Diarrhea, Nausea Patient Disposition: Still a Patient Instructions: Acute Diarrhea (ED) Additional Instructions: Take your medications as prescribed. If you were prescribed antibiotics today, it is important that you take your medication to their entirety, do not skip any doses, do not finish them early. Follow-up with your primary care provider this week. Follow-up with GI Return to the emergency department with new or worsening symptoms. Such as fevers, chills, chest pain, shortness of breath, nausea, vomiting, dizziness, headache, vision changes, lethargy In case of emergency call 911 Your labs are unremarkable. Your C diff test was negative on 11/02/2022 stop taking vancomycin and start taking levofloxacin. Prescriptions: New loperamide [Anti-Diarrheal (loperamide)] 2 mg capsule 2 mg PO Q6H PRN (Reason: loose stool) Qty: 30 0RF levofloxacin 750 mg tablet 750 mg PO DAILY 7 Days Qty: 7 0RF No Action vancomycin 125 mg capsule 125 mg PO QID 14 Days Qty: 56 0RF ondansetron 4 mg tablet,disintegrating 4 mg PO Q8H PRN (Reason: nausea and vomiting) Qty: 10 0RF Referrals: Roni Gunter MD [Primary Care Provider] - 2 days
[2022-11-06] MEDS: iohexoL 350 MG/ML 100 ML INFUS..BTL 85 ML IV (01:11)
[2022-11-06 01:13] LABS: Lactic Acid 1.1 mmol/L (0.5-2.0)
[2022-11-06] MEDS: Loperamide HCl 2 MG CAPSULE PO (01:49)
[2022-11-06] MEDS: levoFLOXacin 500 MG TABLET PO (01:49)
[2022-11-06] MEDS: 0.9 % Sodium Chloride 1,000 ML 999 ML IV (01:53)
== END 2022-11-06 03:00 | disposition still patient (30) ==
PROVIDERS: Emergency Medicine Emergency Medical Services; Physician Assistant; Emergency Provider Internal Medicine; PCP Internal Medicine
DX: R19.7 Diarrhea, unspecified (principal); R11.0 Nausea; I10 Essential (primary) hypertension; E78.5 Hyperlipidemia, unspecified; Z79.899 Other long term (current) drug therapy
CPT/HCPCS: 36415; 74177; 80048; 80076; 83605; 83690; 85025; 87040; 96360; 99283; 99284; Q9967

== ENCOUNTER 2023-07-29 08:53 | Outpatient (REF) | payer MEDICARE, MEDICAID, SELFPAY ==
[2023-07-29 11:35] LABS: MANUAL DIFF FLAG NO
[2023-07-29 11:39] LABS: Basophils Absolute Auto 0.1 X10*3/uL (0.0-0.2); Basophils Percent Auto 0.9 % (0-2); Eosinophils Absolute Auto 0.2 X10*3/uL (0.0-0.4); Eosinophils Percent Auto 2.7 % (0-4); Hematocrit 39.6 % (37.0-47.0); Hemoglobin 12.6 g/dl (12.0-16.0); Imm Gran Abs Auto 0.03 X10*3/uL (0.00-0.03); Imm Gran Pct Auto 0.4 % (0.0-0.4); Lymphocytes Absolute Auto 1.7 X10*3/uL (1.2-4.9); Lymphocytes Percent Auto 22.7 % (20-40); Mean Corpuscular HGB Conc 31.8 g/dl (31.0-35.0); Mean Corpuscular Hemoglobin 30.3 pg (27.0-33.0); Mean Corpuscular Volume 95.2 fL (80.0-98.0); Monocytes Absolute Auto 0.6 X10*3/uL (0.1-1.2); Monocytes Percent Auto 8.3 % (2-11); Platelet Count 298 X10*3/uL (160-400); Red Blood Count 4.16 X10*6/uL (4.20-5.50); Red Cell Distribution Width 13.7 % (11.0-16.0); White Blood Count 7.7 X10*3/uL (4.8-10.8)
[2023-07-29 11:51] LABS: Estimated Average Glucose 117 mg/dL; Hemoglobin A1c % 5.7 % (<6.0)
[2023-07-29 12:25] LABS: Alanine Aminotransferase 20 U/L (0-31); Albumin Level 4.3 g/dL (3.5-5.0); Alkaline Phosphatase 105 U/L (39-117); Anion Gap 14 (12-20); Aspartate Amino Transferase 17 U/L (5-31); Bilirubin Total 0.3 mg/dL (0.0-1.0); Blood Urea Nitrogen 14 mg/dL (9-16); Calcium 9.2 mg/dL (8.4-10.2); Carbon Dioxide 24 mmol/L (22-29); Chloride 107 mmol/L (96-108); Cholesterol 219 mg/dL (<200); Estimated Glomerular Filt Rate > 60; Glucose Random 103 mg/dL (60-115); HDL Cholesterol 42 mg/dL (>40); Iron 60 mcg/dL (30-160); LDL Cholesterol Calculated 146 mg/dL (<100); Percent Iron Saturation 24 % (15-50); Potassium 4.1 mmol/L (3.3-5.1); Sodium 141 mmol/L (135-145); Total Iron Binding Capacity 248 mcg/dL (228-428); Total Protein 7.7 g/dL (6.5-8.0); Triglycerides 156 mg/dL (<150); Unsaturated Iron Binding 188 ug/dL
[2023-07-29 12:32] LABS: Ferritin 116 ng/mL (10-250); Vitamin D 25-OH Total 20.1 ng/mL (>30)
[2023-07-29 12:38] LABS: Folate 6.3 ng/mL (> or = 4.0); Vitamin B12 1175 pg/mL (200-900)
[2023-07-30 09:48] LABS: Lyme Blot 0.93 index
[2023-07-31 11:06] LABS: Lyme Abs Screen EQUIVOCAL
[2023-07-31 15:58] LABS: 18 KD (IgG) Band NON-REACTIVE; 23 KD (IgG) Band NON-REACTIVE; 23 KD (IgM) Band REACTIVE; 28 KD (IgG) Band NON-REACTIVE; 30 KD (IgG) Band NON-REACTIVE; 39 KD (IgM) Band REACTIVE; 39KD (IgG) Band NON-REACTIVE; 41 KD (IgM) Band NON-REACTIVE; 41KD (IgG) Band NON-REACTIVE; 45 KD (IgG) Band NON-REACTIVE; 58 KD (IgG) Band NON-REACTIVE; 66 KD (IgG) Band NON-REACTIVE; 93 KD (IgG) Band NON-REACTIVE; Lyme IgG Blot Interp NEGATIVE (NEGATIVE); Lyme IgM Blot Interp POSITIVE (NEGATIVE)
[2023-08-01 13:08] LABS: A. Phagocytophilum Ab IgG <1:64 (<1:64); A. Phagocytophilum Ab IgM <1:20 (<1:20); E. Chaffeensis Ab IgG <1:64 (<1:64); E. Chaffeensis Ab IgM <1:20 (<1:20)
== END 2023-07-29 08:54 | disposition home or self-care (01) ==
LOC: HO.HMGCLDS 08:53
PROVIDERS: PCP Internal Medicine; Visit Provider Physician Assistant
DX: I10 Essential (primary) hypertension (principal); E03.8 Other specified hypothyroidism; R53.83 Other fatigue
CPT/HCPCS: 36415; 80053; 80061; 82306; 82607; 82728; 82746; 83036; 83540; 84443; 85025; 86617; 86618; 86666

== ENCOUNTER 2023-08-14 10:40 | Outpatient (REF) | payer MEDICARE, MEDICAID, SELFPAY | END 2023-08-14 10:41 | disposition home or self-care (01) | LOC: HO.MAMMO 10:40 | PROVIDERS: PCP Internal Medicine; Visit Provider Internal Medicine | DX: Z12.31 Encounter for screening mammogram for malignant neoplasm of breast (principal) | CPT/HCPCS: 77063; 77067 ==

== ENCOUNTER → 2023-08-14 10:45 | Outpatient (BNV) | payer MEDICARE, MEDICAID, SELFPAY | PROVIDERS: PCP Internal Medicine; Visit Provider Radiology Diagnostic Radiology | DX: Z12.31 Encounter for screening mammogram for malignant neoplasm of breast (principal) | CPT/HCPCS: 77063; 77067 ==

== ENCOUNTER 2023-10-22 23:52 | Emergency (ER) | payer MEDICARE, MEDICAID, SELFPAY ==
--- NOTE | ~2023-10-22 | CT_ITS ---
EXAMINATION: CT ABDOMEN AND PELVIS WITHOUT CONTRAST CLINICAL INFORMATION: Right flank pain. COMPARISON: None available. TECHNIQUE: Multidetector volumetric imaging was performed from the superior aspect of the liver through the pubic symphysis. Sagittal and coronal reformatted images were obtained on the technologist's workstation. This CT examination was performed using dose optimization techniques as appropriate, variously including the following: *Automated exposure control *Adjustment of mA and/or kV according to patient size (this includes techniques or standardized protocols for targeted exams where dose is matched to indication/reason for exam; i.e. extremities or head) *Use of iterative reconstruction technique DLP: 643 mGy-cm FINDINGS: LUNG BASES: The visualized lung bases are unremarkable. LIVER, GALLBLADDER, AND BILIARY TREE: The liver is normal in size, shape, and attenuation. No focal hepatic lesion or biliary ductal dilatation is present. The gallbladder is unremarkable with no evidence of radiopaque gallstones, gallbladder wall thickening, or obvious pericholecystic inflammatory changes. PANCREAS: Unremarkable. SPLEEN: Unremarkable. ADRENAL GLANDS: Unremarkable. KIDNEYS AND URETERS: The kidneys are normal in size, shape, and attenuation. No hydronephrosis, hydroureter, or calculi seen. No perinephric stranding. BLADDER: Unremarkable. GASTROINTESTINAL TRACT: The small and large bowel are unremarkable. The appendix is unremarkable. ABDOMINAL WALL: A sacral stimulator device is noted posteriorly. LYMPH NODES: Normal. VASCULAR: Unremarkable. PELVIC VISCERA: Unremarkable. OSSEOUS STRUCTURES: Unremarkable. CT/CT abdomen pelvis wo IV con IMPRESSION: No significant abnormality. Fleischner guidelines were followed.
[2023-10-23 00:18] VITALS: BP 152/71; PULSE 61; RESP 18; TEMP 36.6; O2SAT 96; BMI 33.9
[2023-10-23 00:39] LABS: Basophils Absolute Auto 0.1 X10*3/uL (0.0-0.2); Basophils Percent Auto 0.6 % (0-2); Eosinophils Absolute Auto 0.3 X10*3/uL (0.0-0.4); Hematocrit 37.6 % (37.0-47.0); Hemoglobin 12.1 g/dl (12.0-16.0); Imm Gran Abs Auto 0.03 X10*3/uL (0.00-0.03); Imm Gran Pct Auto 0.3 % (0.0-0.4); Lymphocytes Absolute Auto 3.1 X10*3/uL (1.2-4.9); Lymphocytes Percent Auto 26.9 % (20-40); MANUAL DIFF FLAG NO; Mean Corpuscular HGB Conc 32.2 g/dl (31.0-35.0); Mean Corpuscular Volume 93.3 fL (80.0-98.0); Mean Platelet Volume 9.9 fL (9.4-12.3); Monocytes Absolute Auto 0.9 X10*3/uL (0.1-1.2); Monocytes Percent Auto 7.7 % (2-11); Neutrophils Percent Auto 61.5 % (45-73); Platelet Count 311 X10*3/uL (160-400); Red Blood Count 4.03 X10*6/uL (4.20-5.50); Red Cell Distribution Width 13.9 % (11.0-16.0); White Blood Count 11.4 X10*3/uL (4.8-10.8)
[2023-10-23 00:54] LABS: Appearance Urine Clear; Color Urine Yellow; Glucose Urine UA Negative (Negative); Leukocyte Esterase Urine Negative (Negative); Nitrite Urine Negative (Negative); Specific Gravity - Urine <= 1.005 (1.005-1.025); Urine Blood Negative (Negative); Urine Ketones Negative (Negative); Urine Protein Negative (Neg-Trace)
[2023-10-23 00:56] LABS: Alanine Aminotransferase 22 U/L (0-31); Albumin Level 4.5 g/dL (3.5-5.0); Alkaline Phosphatase 105 U/L (39-117); Anion Gap 14 (12-20); Aspartate Amino Transferase 17 U/L (5-31); Bilirubin Total 0.2 mg/dL (0.0-1.0); Blood Urea Nitrogen 14 mg/dL (9-16); Calcium 9.4 mg/dL (8.4-10.2); Carbon Dioxide 25 mmol/L (22-29); Chloride 107 mmol/L (96-108); Creatinine Clr Calc Pharmacy 48.9; Estimated Glomerular Filt Rate 48; Glucose Random 101 mg/dL (60-115); Potassium 4.2 mmol/L (3.3-5.1); Sodium 142 mmol/L (135-145); Total Protein 7.6 g/dL (6.5-8.0)
[2023-10-23 00:59] LABS: Bacteria Urine None Seen (None Seen); Hyaline Casts Urine 0-2 /LPF (0-2); RBC Urine 0-2 /HPF (0-2); Squamous Epithelial Cell Urine 0-2 /HPF (0-2); WBC Urine 0-5 /HPF (0-5)
[2023-10-23 01:31] VITALS: BP 138/65; PULSE 61; RESP 14; TEMP 36.4; O2SAT 98
--- NOTE | 2023-10-23 02:11 | ED_ITS ---
HPI - Abdominal Pain General Chief Complaint: Abdominal Pain Stated Complaint: R sided hip pain for 2 weeks Time Seen by Provider: 10/23/23 01:59 Source: patient Mode of arrival: ambulatory Limitations: no limitations History of Present Illness HPI narrative: 53 yo female with PMH of HTN, HLD, depression, bipolar disorder, IBS with chronic fecal incontinence and stimulator, here with atraumatic R flank pain that is worse at night when she sleeps on it. No fevers, she notes increased urinary frequency. No n/v/d. Does hurt to touch and move. Has no rash MD elicited complaint: flank pain Pertinent past history: none Onset (ago): week(s) (1) Pain Consistency: intermittent Location: R flank Severity: moderate Quality: stabbing Radiation: other (down back to leg) Migration to: no migration Exacerbating factors: movement Relieving factors: nothing Associated symptoms: dysuria Treatments prior to arrival: NSAIDs Related Data Home Medications Medication Instructions Recorded Confirmed buspirone 15 mg tablet 15 mg PO BID 10/28/20 fluoxetine 20 mg capsule 20 mg PO DAILY 10/28/20 fluoxetine 40 mg capsule 40 mg PO QAM 10/28/20 ibuprofen 800 mg tablet 800 mg PO TID 10/28/20 lamotrigine 150 mg tablet 300 mg PO DAILY 10/28/20 levothyroxine 50 mcg tablet 50 mcg PO DAILY 10/28/20 lisinopril 5 mg tablet 5 mg PO DAILY 10/28/20 melatonin 5 mg tablet 10 mg PO BEDTIME PRN 10/28/20 metoprolol tartrate 50 mg tablet 50 mg PO DAILY 10/28/20 naltrexone 50 mg tablet 50 mg PO BEDTIME 10/28/20 simvastatin 20 mg tablet 20 mg PO DAILY 10/28/20 sumatriptan succinate 100 mg tablet 100 mg PO DAILY PRN 10/28/20 tramadol 50 mg tablet 50 mg PO DAILY PRN 10/28/20 valacyclovir 500 mg tablet 500 mg PO DAILY 10/28/20 Previous Rx's Medication Instructions Recorded ondansetron 4 mg disintegrating 4 mg PO Q8H PRN nausea and 11/02/22 tablet vomiting #10 tabs vancomycin 125 mg capsule 125 mg PO QID 14 days #56 caps 11/02/22 levofloxacin 750 mg tablet 750 mg PO DAILY 7 days #7 tabs 11/06/22 loperamide 2 mg capsule 2 mg PO Q6H PRN loose stool #30 11/06/22 (Anti-Diarrheal (loperamide)) caps lidocaine 4 % topical patch 1 patch topical DAILY PRN pain #10 10/23/23 ea Allergies Allergy/AdvReac Type Severity Reaction Status Date / Time promethazine [From PHENERGAN] Allergy Severe ALTERED Verified 10/23/23 00:21 MENTAL STATUS meperidine [Demerol] Allergy Unknown nausea Verified 10/23/23 00:21 fenegrine Allergy Mild Nausea Uncoded 10/28/20 09:17 Review of Systems Review of Systems Constitutional : No Fever, No Chills ENT/Mouth : No sore throat Eyes: No Eye Pain, No Swelling, No Redness Cardiovascular : No Chest Pain, No SOB Respiratory : No Cough, No Sputum, No Wheezing Gastrointestinal : no Nausea, no Vomiting, No Diarrhea, positive abdominal pain Genitourinary : positive Dysuria, positive urinary frequency, no Hematuria, positive Flank Pain, no hesitancy Musculoskeletal : No joint pain, No Myalgias Skin : No Skin Lesions, No rash Neuro : No Weakness, No Numbness, No Headache Psych : No Anxiety/Panic, No Depression Heme/Lymph: No Bruising, No Lymphadenopathy Endocrine : No Polyuria, No Polydipsia All other systems reviewed and are negative PMFSH Past Medical History Attestation statement: The following information was validated with the patient. Source: old records reviewed Medical History Depression Bipolar 1 disorder High cholesterol Hypertension Surgical History History of bunionectomy of right great toe History of carpal tunnel surgery of right wrist History of carpal tunnel surgery of left wrist History of hysterectomy History of section Family History Family History Mother No problems noted. Father No problems noted. 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 Oriented X3. No acute distress. Eyes: Pupils equal, round and reactive to light. ENT: Pharynx normal. Neck: Normal inspection. Neck supple. CVS: Normal heart rate and rhythm. Pulses normal. Respiratory: No respiratory distress. Breath sounds normal. Abdomen: Soft and non-tender. Back: ttp along R flank area no rash reproduces pain Skin: Skin warm and dry. Normal skin color. Normal skin turgor. Extremities: No lower extremity edema. No calf ttp Neuro: Oriented X 3. No motor deficit. No sensory deficit. Medical Decision Making Medical Decision Making [facility] Narrative: 53 yo female with PMH of HTN, HLD, depression, bipolar disorder, IBS with chronic fecal incontinence and stimulator here with c/o atraumatic R flank pain distal NV intact with some dysuria at this time basic labs, UA and CT scan for mass/renal colic. Could also be MSK. The patient will need lidocaine patch at this time. No dyspnea or CP to suggest VTE. She has no URI symptoms either. Differential Diagnosis Differential Diagnoses: The differential diagnosis associated with the presentation includes renal colic, UTI, MSK pain Admission/Observation Consideration of admission/observation: Escalation of care including admission/observation considered not toxic, able to walk will start on pain medications and DC home Lab Data [facility] Lab Attestation statement: I reviewed the patient's lab results. 10/23/23 00:34 10/23/23 00:34 Labs: Lab Results 10/23/23 10/23/23 Range/Units 00:34 00:47 WBC 11.4 H (4.8-10.8) X10*3/uL RBC 4.03 L (4.20-5.50) X10*6/uL Hgb 12.1 (12.0-16.0) g/dl Hct 37.6 (37.0-47.0) % MCV 93.3 (80.0-98.0) fL MCH 30.0 (27.0-33.0) pg MCHC 32.2 (31.0-35.0) g/dl RDW 13.9 (11.0-16.0) % Plt Count 311 (160-400) X10*3/uL MPV 9.9 (9.4-12.3) fL Immature Gran % (Auto) 0.3 (0.0-0.4) % Neut % (Auto) 61.5 (45-73) % Lymph % (Auto) 26.9 (20-40) % [place]ades % (Auto) 7.7 (2-11) % Eos % (Auto) 3.0 (0-4) % Baso % (Auto) 0.6 (0-2) % Lymph # (Auto) 3.1 (1.2-4.9) X10*3/uL [place] # (Auto) 0.9 (0.1-1.2) X10*3/uL Eos # (Auto) 0.3 (0.0-0.4) X10*3/uL Baso # (Auto) 0.1 (0.0-0.2) X10*3/uL Abs Immat Gran (auto) 0.03 (0.00-0.03) X10*3/uL Absolute Neuts (auto) 7.0 (2.0-8.3) x10*3/uL Absolute Nucleated RBC 0.000 (0.0-0.012) X10*3/uL Nucleated RBC % (auto) 0.0 (0.0-0.2) /100WBC Sodium 142 (135-145) mmol/L Potassium 4.2 (3.3-5.1) mmol/L Chloride 107 (96-108) mmol/L Carbon Dioxide 25 (22-29) mmol/L Anion Gap 14 (12-20) BUN 14 (9-16) mg/dL Creatinine 1.17 (0.5-1.4) mg/dL Estim Creat Clear Calc 48.9 Estimated GFR 48 Random Glucose 101 (60-115) mg/dL Calcium 9.4 (8.4-10.2) mg/dL Total Bilirubin 0.2 (0.0-1.0) mg/dL AST 17 (5-31) U/L ALT 22 (0-31) U/L Alkaline Phosphatase 105 (39-117) U/L Total Protein 7.6 (6.5-8.0) g/dL Albumin 4.5 (3.5-5.0) g/dL Urine Color Yellow Urine Appearance Clear Urine pH 6.0 (5.0-9.0) Ur Specific [place] <= 1.005 (1.005-1.025) Urine Protein Negative (Neg-Trace) mg/dL Urine Glucose (UA) Negative (Negative) mg/dL Urine Ketones Negative (Negative) mg/dL Urine Blood Negative (Negative) Urine Nitrite Negative (Negative) Ur Leukocyte Esterase Negative (Negative) Urine RBC 0-2 (0-2) /HPF Urine WBC 0-5 (0-5) /HPF Ur Squamous Epith Cells 0-2 (0-2) /HPF Urine Bacteria None Seen (None Seen) Hyaline Casts 0-2 (0-2) /LPF Independent Interpretation I performed an independent interpretation of an: CT Scan (normal ) Radiology Impression Discussion of test interpretation with radiology: I have reviewed the radiologist's reading. External Record Review External record reviewed: Inpatient record Prescription Management I considered prescription management with: Other Medications Administered Discontinued Medications Generic Name Dose Route Start Last Admin Trade Name Freq PRN Reason Stop Dose Admin Lidocaine 1 patch 10/23/23 02:27 10/23/23 02:52 Lidocaine 4 % Patch Adh..Patch TRANSDERMA 10/23/23 02:28 1 patch ONCE ONE Administration Protocol Discharge Plan Discharge Clinical Impression: Right flank pain Patient Disposition: Home, Self-Care Instructions: Flank Pain (ED) Additional Instructions: return for worsening pain, fevers, vomiting, or any other concerns labs and urine normal FINDINGS: LUNG BASES: The visualized lung bases are unremarkable. LIVER, GALLBLADDER, AND BILIARY TREE: The liver is normal in size, shape, and attenuation. No focal hepatic lesion or biliary ductal dilatation is present. The gallbladder is unremarkable with no evidence of radiopaque gallstones, gallbladder wall thickening, or obvious pericholecystic inflammatory changes. PANCREAS: Unremarkable. SPLEEN: Unremarkable. ADRENAL GLANDS: Unremarkable. KIDNEYS AND URETERS: The kidneys are normal in size, shape, and attenuation. No hydronephrosis, hydroureter, or calculi seen. No perinephric stranding. BLADDER: Unremarkable. GASTROINTESTINAL TRACT: The small and large bowel are unremarkable. The appendix is unremarkable. ABDOMINAL WALL: A sacral stimulator device is noted posteriorly. LYMPH NODES: Normal. VASCULAR: Unremarkable. PELVIC VISCERA: Unremarkable. OSSEOUS STRUCTURES: Unremarkable. CT/CT abdomen pelvis wo IV con IMPRESSION: No significant abnormality. Prescriptions: New lidocaine 4 % adhesive patch,medicated 1 patch topical DAILY PRN (Reason: pain) Qty: 10 0RF Rx Instructions: may leave on for up to 12 hrs No Action vancomycin 125 mg capsule 125 mg PO QID 14 Days Qty: 56 0RF ondansetron 4 mg tablet,disintegrating 4 mg PO Q8H PRN (Reason: nausea and vomiting) Qty: 10 0RF loperamide [Anti-Diarrheal (loperamide)] 2 mg capsule 2 mg PO Q6H PRN (Reason: loose stool) Qty: 30 0RF levofloxacin 750 mg tablet 750 mg PO DAILY 7 Days Qty: 7 0RF
[2023-10-23] MEDS: Lidocaine 4 % Patch ADH..PATCH 1 PATCH TRANSDERMA (02:52)
== END 2023-10-23 03:40 | disposition home or self-care (01) ==
PROVIDERS: Emergency Provider Emergency Medicine; PCP Internal Medicine
DX: R10.31 Right lower quadrant pain (principal); R15.9 Full incontinence of feces; Z79.899 Other long term (current) drug therapy
CPT/HCPCS: 36415; 74176; 80053; 81001; 85025; 99284

== ENCOUNTER 2023-11-08 07:42 | Outpatient (REF) | payer MEDICARE, MEDICAID, SELFPAY ==
--- NOTE | ~2023-11-08 | US_ITS ---
EXAMINATION: US ABDOMEN COMPLETE CLINICAL INFORMATION: RUQ pain, abdominal distention. COMPARISON: CT abdomen and pelvis 10/23/2023. TECHNIQUE: Real-time imaging of the abdominal viscera. Limited visualization due to bowel gas. FINDINGS: PANCREAS: Limited visualization of pancreatic tail and head. Imaged portion of pancreatic body is unremarkable. ABDOMINAL AORTA: Nonaneurysmal. INFERIOR VENA CAVA: Visualized portions are normal. LIVER: Increased hepatic parenchymal heterogeneity and echogenicity could be associated with hepatocellular disease/hepatic steatosis and severely limits visualization. Correlation with liver function tests and clinical exam recommended to determine further management. The liver contour is normal. GALLBLADDER: No gallstones. No gallbladder wall thickening. COMMON BILE DUCT: Normal in caliber measuring 0.27 cm in diameter. RIGHT KIDNEY: No hydronephrosis. No renal calculi. Limited visualization. The kidney measures 9.0 cm in maximum dimension. LEFT KIDNEY: No hydronephrosis. No renal calculi. Limited visualization. The kidney measures 9.7 cm in maximum dimension. SPLEEN: Normal. The spleen measures 8.0 cm in maximum dimension. FREE FLUID: None. US/US abdomen complete IMPRESSION: Increased hepatic parenchymal heterogeneity and echogenicity could be associated with hepatocellular disease/hepatic steatosis and severely limits visualization. Correlation with liver function tests and clinical exam recommended to determine further management.
[2023-11-08 10:02] LABS: Lipase 260 U/L (8-78)
== END 2023-11-08 07:43 | disposition home or self-care (01) ==
LOC: HO.US 07:42
PROVIDERS: PCP Internal Medicine; Visit Provider Internal Medicine Gastroenterology
DX: R10.11 Right upper quadrant pain (principal); R19.7 Diarrhea, unspecified; R14.0 Abdominal distension (gaseous)
CPT/HCPCS: 36415; 76700; 83690

== ENCOUNTER 2023-11-15 10:45 | Outpatient (REF) | payer MEDICARE, MEDICAID, SELFPAY ==
[2023-11-15 11:37] LABS: Hematocrit 36.7 % (37.0-47.0); Hemoglobin 11.8 g/dl (12.0-16.0); Mean Corpuscular HGB Conc 32.2 g/dl (31.0-35.0); Mean Corpuscular Hemoglobin 30.5 pg (27.0-33.0); Mean Corpuscular Volume 94.8 fL (80.0-98.0); Mean Platelet Volume 10.3 fL (9.4-12.3); Platelet Count 278 X10*3/uL (160-400); Red Blood Count 3.87 X10*6/uL (4.20-5.50); Red Cell Distribution Width 13.9 % (11.0-16.0); White Blood Count 9.1 X10*3/uL (4.8-10.8)
[2023-11-15 12:49] LABS: Alanine Aminotransferase 17 U/L (0-31); Albumin Level 4.3 g/dL (3.5-5.0); Alkaline Phosphatase 105 U/L (39-117); Amylase 110 U/L (28-100); Aspartate Amino Transferase 14 U/L (5-31); Bilirubin Direct 0.1 mg/dL (0.0-0.5); Bilirubin Total 0.3 mg/dL (0.0-1.0); Lipase 63 U/L (8-78); Total Protein 7.5 g/dL (6.5-8.0)
== END 2023-11-15 10:46 | disposition home or self-care (01) ==
LOC: HO.LAB 10:45
PROVIDERS: PCP Internal Medicine; Visit Provider Internal Medicine Gastroenterology
DX: R74.8 Abnormal levels of other serum enzymes (principal)
CPT/HCPCS: 36415; 80076; 82150; 83690; 85027

== ENCOUNTER 2023-12-05 10:34 | Emergency (ER) | payer MEDICARE, MEDICAID, SELFPAY ==
[2023-12-05 10:42] VITALS: BP 144/63; PULSE 71; RESP 16; TEMP 36.7; O2SAT 96; BMI 34.5
[2023-12-05 11:19] LABS: IDNOW Serial# 58CA691E; Strep A Nucleic Acid Negative (Negative)
[2023-12-05 11:31] LABS: Influenza A PCR NEGATIVE (Negative); Influenza B PCR NEGATIVE (Negative); Resp Syncy Virus RNA Qual PCR NEGATIVE (Negative); SARS COV2 PCR INHOUSE NEGATIVE (Negative)
--- NOTE | 2023-12-05 12:05 | ED.HA ---
HPI - Headache General Chief Complaint: Headache Stated Complaint: Headache 4 days Time Seen by Provider: 12/05/23 11:48 Source: patient Mode of arrival: ambulatory Limitations: no limitations History of Present Illness HPI Narrative: 53-year-old female presents the ER for evaluation of 4 days of not feeling well. She states her symptoms started with a sore throat and a progressed to chest congestion, cough, sinus pressure, and loss of sense of taste and smell. she states when she had COVID-19 last year she had all of the symptoms. She denies any shortness of breath, difficulty breathing, chest pain, abdominal pain, nausea, vomiting, diarrhea. She has had decreased appetite but drinking an adequate amount of fluids. No fevers. No known sick contacts. She was prescribed Zithromax with no improvement in her symptoms. MD elicited complaint: headache and other ( cough, sore throat, nasal congestion) Pertinent past history: hypertension and other ( URI symptoms) Onset (ago): day(s) (4) Onset description: gradually Location: generalized Severity: moderate Quality & Timing: aching and throbbing Associated symptoms: cough Treatments prior to arrival: none Related Data Home Medications ?Medication ?Instructions ?Recorded ?Confirmed buspirone 15 mg tablet 15 mg PO BID 10/28/20 fluoxetine 20 mg capsule 20 mg PO DAILY 10/28/20 fluoxetine 40 mg capsule 40 mg PO QAM 10/28/20 ibuprofen 800 mg tablet 800 mg PO TID 10/28/20 lamotrigine 150 mg tablet 300 mg PO DAILY 10/28/20 levothyroxine 50 mcg tablet 50 mcg PO DAILY 10/28/20 lisinopril 5 mg tablet 5 mg PO DAILY 10/28/20 melatonin 5 mg tablet 10 mg PO BEDTIME PRN 10/28/20 metoprolol tartrate 50 mg tablet 50 mg PO DAILY 10/28/20 naltrexone 50 mg tablet 50 mg PO BEDTIME 10/28/20 simvastatin 20 mg tablet 20 mg PO DAILY 10/28/20 sumatriptan succinate 100 mg tablet 100 mg PO DAILY PRN 10/28/20 tramadol 50 mg tablet 50 mg PO DAILY PRN 10/28/20 valacyclovir 500 mg tablet 500 mg PO DAILY 10/28/20 Previous Rx's ?Medication ?Instructions ?Recorded ondansetron 4 mg disintegrating 4 mg PO Q8H PRN nausea and 11/02/22 tablet vomiting #10 tabs vancomycin 125 mg capsule 125 mg PO QID 14 days #56 caps 11/02/22 levofloxacin 750 mg tablet 750 mg PO DAILY 7 days #7 tabs 11/06/22 loperamide 2 mg capsule 2 mg PO Q6H PRN loose stool #30 11/06/22 (Anti-Diarrheal (loperamide)) caps lidocaine 4 % topical patch 1 patch topical DAILY PRN pain #10 10/23/23 ea benzonatate 100 mg capsule 100 mg PO TID PRN cough #20 caps 12/05/23 fluticasone propionate 50 1 spray intranasal BID #16 grams 12/05/23 mcg/actuation nasal spray,suspension (Flonase Allergy Relief) Allergies Allergy/AdvReac Type Severity Reaction Status Date / Time promethazine [From PHENERGAN] Allergy Severe ALTERED Verified 12/05/23 10:42 MENTAL STATUS meperidine [Demerol] Allergy Unknown nausea Verified 12/05/23 10:42 Review of Systems Review of Systems: Yes all other systems are reviewed and are negative [facility] Past Medical History Medical History Depression Bipolar 1 disorder High cholesterol Hypertension Surgical History History of bunionectomy of right great toe History of carpal tunnel surgery of right wrist History of carpal tunnel surgery of left wrist History of hysterectomy History of section Family History Family History Mother No problems noted. Father No problems noted. 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 Oriented X3. No acute distress. Head: normocephalic, atraumatic. Eyes: Pupils equal, round and reactive to light. ENT: Pharynx normal. No tonsillar swelling or exudate. normal tympanic membranes bilaterally. Neck: Normal inspection. Neck supple. CVS: Normal heart rate and rhythm. Pulses normal. Respiratory: No respiratory distress. Breath sounds normal. mild dry cough noted Skin: Skin warm and dry. Normal skin color. Normal skin turgor. No rashes. Extremities: No lower extremity edema. No joint swelling. Neuro/psych: Oriented X 3. No motor deficit. No sensory deficit. CN II-XII intact. Normal speech and cognition. Medical Decision Making Medical Decision Making [facility] Narrative: 53-year-old female presenting to the ER for 4 days of URI symptoms with cough. Her vital signs are stable on arrival, mildly hypertensive. She has a history of hypertension. She states she has had a throbbing headache for the last 4 days, improves with [id number] meds. She has been on Zithromax with no improvement in her symptoms. She has no neurologic deficits. Her headache is not severe. It is most likely due to her viral illness. She was tested for COVID, flu, RSV all of which are negative. She did not test positive for strep throat either. Her symptoms most likely viral in etiology. We discussed symptomatic management. Will prescribe Tessalon and Flonase for her symptoms. Work note provided per request. She is stable for discharge home. Differential Diagnosis Differential Diagnoses: The differential diagnosis associated with the presentation includes COVID, flu, RSV, other viral process, sinusitis, bronchitis, pneumonia, low clinical suspicion for encephalitis, meningitis Lab Data [facility] Lab Attestation statement: I reviewed the patient's lab results. Labs: Lab Results 12/05/23 Range/Units 10:50 Influenza Type A (PCR) NEGATIVE (Negative) Influenza Type B (PCR) NEGATIVE (Negative) RSV RNA Qual (PCR) NEGATIVE (Negative) SARS-CoV-2 RNA (RT-PCR) NEGATIVE (Negative) S. pyogenes GrpA CECILE Negative (Negative) External Record Review External record reviewed: Outpatient record, Prior outpatient labs and Prior outpatient radiology Tests considered The following testing was considered but not selected: considered CT of the head however headache is not the worst headache of her life and she has no neuro symptoms. Consider chest x-ray however she is oxygenating well on room air her lungs are clear to auscultation. No fever. Low suspicion for pneumonia. Prescription Management I considered prescription management with: Pain Medication, Antiviral and Antibiotic Chronic Conditions Patient?s care impacted by: Hypertension Critical Care Time Critical Care Time Critical Care Time: No Discharge Plan Discharge Clinical Impression: Viral respiratory illness Patient Disposition: Home, Self-Care Instructions: Viral Syndrome (ED) Additional Instructions: You tested negative for strep throat, COVID-19, influenza and RSV. Your symptoms most likely due to another viral process. Take the prescribed medication as needed for cough. Recommend using the nasal spray to help with congestion. Recommend [id number] cold and flu medications and cough suppressants as needed for your symptoms. Take ibuprofen or acetaminophen as needed for headaches, fevers, body aches. Rest and stay hydrated. Follow-up with your doctor. If you develop new or worsening symptoms call 911 or come back to the ER for further evaluation. Prescriptions: New benzonatate 100 mg capsule 100 mg PO TID PRN (Reason: cough) Qty: 20 0RF fluticasone propionate [Flonase Allergy Relief] 50 mcg/actuation spray,suspension 1 spray intranasal BID Qty: 16 0RF Rx Instructions: administer into each nostril No Action lidocaine 4 % adhesive patch,medicated 1 patch topical DAILY PRN (Reason: pain) Qty: 10 0RF Rx Instructions: may leave on for up to 12 hrs vancomycin 125 mg capsule 125 mg PO QID 14 Days Qty: 56 0RF ondansetron 4 mg tablet,disintegrating 4 mg PO Q8H PRN (Reason: nausea and vomiting) Qty: 10 0RF loperamide [Anti-Diarrheal (loperamide)] 2 mg capsule 2 mg PO Q6H PRN (Reason: loose stool) Qty: 30 0RF levofloxacin 750 mg tablet 750 mg PO DAILY 7 Days Qty: 7 0RF Referrals: Roni Gunter MD [Primary Care Provider] - Stand Alone Forms: Work/School Release Print Language: Portuguese
[2023-12-05 12:30] VITALS: BP 160/72; PULSE 65; RESP 20; TEMP 37; O2SAT 98
== END 2023-12-05 12:31 | disposition home or self-care (01) ==
PROVIDERS: Emergency Provider Emergency Medicine; PCP Internal Medicine
DX: R51.9 Headache, unspecified (principal); J02.9 Acute pharyngitis, unspecified; Z03.818 Encounter for observation for suspected exposure to other biological agents ruled out
CPT/HCPCS: 0241U; 87651; 99283; 99284

== ENCOUNTER 2024-01-01 11:21 | Outpatient (REF) | payer MEDICARE, MEDICAID, SELFPAY ==
[2024-01-01 13:33] LABS: Alanine Aminotransferase 17 U/L (0-31); Albumin Level 4.3 g/dL (3.5-5.0); Alkaline Phosphatase 111 U/L (39-117); Amylase 124 U/L (28-100); Aspartate Amino Transferase 16 U/L (5-31); Bilirubin Direct < 0.2 mg/dL (0.0-0.5); Bilirubin Total 0.2 mg/dL (0.0-1.0); Lipase 89 U/L (8-78); Total Protein 7.5 g/dL (6.5-8.0)
== END 2024-01-01 11:22 | disposition home or self-care (01) ==
LOC: HO.HMGCLDS 11:21
PROVIDERS: PCP Internal Medicine; Visit Provider Internal Medicine Gastroenterology
DX: R79.9 Abnormal finding of blood chemistry, unspecified (principal)
CPT/HCPCS: 36415; 80076; 82150; 83690

== ENCOUNTER 2024-02-22 00:24 | Emergency (ER) | payer MEDICARE, MEDICAID, SELFPAY ==
--- NOTE | ~2024-02-22 | CT_ITS ---
EXAMINATION: CT ABDOMEN AND PELVIS WITH CONTRAST CLINICAL INFORMATION: Abdominal pain. COMPARISON: 10/23/2023 TECHNIQUE: Multidetector volumetric images were obtained from the superior aspect of the liver through the pubic symphysis following administration 85 mL of Omnipaque 350 intravenous contrast. Sagittal and coronal reformatted images were obtained on the technologist's workstation. Oral contrast: No This CT examination was performed using dose optimization techniques as appropriate, variously including the following: *Automated exposure control *Adjustment of mA and/or kV according to patient size (this includes techniques or standardized protocols for targeted exams where dose is matched to indication/reason for exam; i.e. extremities or head) *Use of iterative reconstruction technique DLP: 660 mGy-cm FINDINGS: LUNG BASES: The visualized lung bases are unremarkable. LIVER, GALLBLADDER, AND BILIARY TREE: The liver is normal in size, shape, and attenuation. No focal hepatic lesion or biliary ductal dilatation is present. The gallbladder is unremarkable with no evidence of radiopaque gallstones, gallbladder wall thickening, or obvious pericholecystic inflammatory changes. PANCREAS: Unremarkable. SPLEEN: Unremarkable. ADRENAL GLANDS: Unremarkable. KIDNEYS AND URETERS: The kidneys are normal in size, shape, and attenuation. No hydronephrosis, hydroureter, or calculi seen. No perinephric stranding. BLADDER: Unremarkable. GASTROINTESTINAL TRACT: There are diverticula of the descending and the sigmoid colon without diverticulitis. There are prominent fluid-filled mid to distal small bowel loops and fluid within the right colon. The appendix is visualized and is within normal limits ABDOMINAL WALL: No significant hernia is appreciated. LYMPH NODES: Normal. VASCULAR: Unremarkable. PELVIC VISCERA: Unremarkable. OSSEOUS STRUCTURES: Unremarkable. CT/CT abdomen pelvis w IV con IMPRESSION: 1. Prominent fluid-filled mid to distal small bowel loops and fluid within the right colon. This is nonspecific and could be related to enteritis. 2. Diverticulosis without diverticulitis. 3. The appendix is visualized and is within normal limits. Fleischner guidelines were followed.
[2024-02-22 00:40] VITALS: BP 106/64; PULSE 72; RESP 20; TEMP 36.9; O2SAT 93; BMI 34.3
[2024-02-22 01:02] LABS: MANUAL DIFF FLAG NO
[2024-02-22 01:04] LABS: Basophils Absolute Auto 0.1 X10*3/uL (0.0-0.2); Basophils Percent Auto 0.3 % (0-2); Eosinophils Absolute Auto 0.1 X10*3/uL (0.0-0.4); Eosinophils Percent Auto 0.5 % (0-4); Hematocrit 39.2 % (37.0-47.0); Hemoglobin 12.9 g/dl (12.0-16.0); Imm Gran Abs Auto 0.08 X10*3/uL (0.00-0.03); Imm Gran Pct Auto 0.4 % (0.0-0.4); Lymphocytes Absolute Auto 1.1 X10*3/uL (1.2-4.9); Lymphocytes Percent Auto 5.5 % (20-40); Mean Corpuscular HGB Conc 32.9 g/dl (31.0-35.0); Mean Corpuscular Hemoglobin 30.8 pg (27.0-33.0); Mean Corpuscular Volume 93.6 fL (80.0-98.0); Mean Platelet Volume 10.2 fL (9.4-12.3); Monocytes Absolute Auto 1.4 X10*3/uL (0.1-1.2); Monocytes Percent Auto 6.8 % (2-11); Neutrophils Absolute Auto 17.3 x10*3/uL (2.0-8.3); Neutrophils Percent Auto 86.5 % (45-73); Platelet Count 318 X10*3/uL (160-400); Red Blood Count 4.19 X10*6/uL (4.20-5.50)
[2024-02-22 01:21] LABS: Alanine Aminotransferase 19 U/L (0-31); Albumin Level 4.6 g/dL (3.5-5.0); Alkaline Phosphatase 120 U/L (39-117); Anion Gap 15 (12-20); Aspartate Amino Transferase 15 U/L (5-31); Bilirubin Total 0.3 mg/dL (0.0-1.0); Blood Urea Nitrogen 18 mg/dL (9-16); Carbon Dioxide 26 mmol/L (22-29); Chloride 104 mmol/L (96-108); Creatinine Clr Calc Pharmacy 46.1; Estimated Glomerular Filt Rate 45; Glucose Random 129 mg/dL (60-115); Lipase 71 U/L (8-78); Potassium 4.6 mmol/L (3.3-5.1); Sodium 140 mmol/L (135-145); Total Protein 7.9 g/dL (6.5-8.0)
[2024-02-22 01:41] LABS: Influenza A PCR NEGATIVE (Negative); Influenza B PCR NEGATIVE (Negative); Resp Syncy Virus RNA Qual PCR NEGATIVE (Negative); SARS COV2 PCR INHOUSE NEGATIVE (Negative)
[2024-02-22 02:10] VITALS: BP 126/71; PULSE 67; RESP 16; O2SAT 95
--- NOTE | 2024-02-22 03:13 | ED.ABDPAIN ---
HPI - Abdominal Pain General Chief Complaint: Abdominal Pain Stated Complaint: stomach pains/diarrhea Time Seen by Provider: 02/22/24 02:58 Source: patient Mode of arrival: ambulatory Limitations: no limitations History of Present Illness ED Provider: Dr. Katharine Hinds HPI narrative: Patient comes to emergency room complaining of nausea vomiting and diarrhea. Also, complaining of periumbilical pain. Patient states that all of her symptoms started approximately 8 hours ago while she was eating dinner at home. Related Data Home Medications ?Medication ?Instructions ?Recorded ?Confirmed buspirone 15 mg tablet 15 mg PO BID 10/28/20 fluoxetine 20 mg capsule 20 mg PO DAILY 10/28/20 fluoxetine 40 mg capsule 40 mg PO QAM 10/28/20 ibuprofen 800 mg tablet 800 mg PO TID 10/28/20 lamotrigine 150 mg tablet 300 mg PO DAILY 10/28/20 levothyroxine 50 mcg tablet 50 mcg PO DAILY 10/28/20 lisinopril 5 mg tablet 5 mg PO DAILY 10/28/20 melatonin 5 mg tablet 10 mg PO BEDTIME PRN 10/28/20 metoprolol tartrate 50 mg tablet 50 mg PO DAILY 10/28/20 naltrexone 50 mg tablet 50 mg PO BEDTIME 10/28/20 simvastatin 20 mg tablet 20 mg PO DAILY 10/28/20 sumatriptan succinate 100 mg tablet 100 mg PO DAILY PRN 10/28/20 tramadol 50 mg tablet 50 mg PO DAILY PRN 10/28/20 valacyclovir 500 mg tablet 500 mg PO DAILY 10/28/20 Previous Rx's ?Medication ?Instructions ?Recorded ondansetron 4 mg disintegrating 4 mg PO Q8H PRN nausea and 11/02/22 tablet vomiting #10 tabs vancomycin 125 mg capsule 125 mg PO QID 14 days #56 caps 11/02/22 levofloxacin 750 mg tablet 750 mg PO DAILY 7 days #7 tabs 11/06/22 loperamide 2 mg capsule 2 mg PO Q6H PRN loose stool #30 11/06/22 (Anti-Diarrheal (loperamide)) caps lidocaine 4 % topical patch 1 patch topical DAILY PRN pain #10 10/23/23 ea benzonatate 100 mg capsule 100 mg PO TID PRN cough #20 caps 12/05/23 fluticasone propionate 50 1 spray intranasal BID #16 grams 12/05/23 mcg/actuation nasal spray,suspension (Flonase Allergy Relief) amoxicillin 500 mg-potassium 1 tab PO BID #14 tabs 02/22/24 clavulanate 125 mg tablet (Augmentin) ondansetron HCl 4 mg tablet 4 mg PO Q6H PRN nausea and 02/22/24 vomiting #14 tabs Allergies Allergy/AdvReac Type Severity Reaction Status Date / Time promethazine [From PHENERGAN] Allergy Severe ALTERED Verified 02/22/24 00:42 MENTAL STATUS meperidine [Demerol] Allergy Unknown nausea Verified 02/22/24 00:42 Review of Systems Review of Systems Constitutional : No Weight loss, No Fever, No Chills, No Night Sweats, No Fatigue, No Malaise ENT/Mouth : No Hearing loss, No Ear Pain, No Nasal Congestion, No Sinus Pain, No Hoarseness, No sore throat, No Rhinorrhea, No Swallowing Difficulty Eyes: No Eye Pain, No Swelling, No Redness, No Foreign Body, No Discharge, No Vision Changes Cardiovascular : No Chest Pain, No SOB, No Dyspnea on Exertion, No Orthopnea, No Edema, No Palpitations Respiratory : No Cough, No Sputum, No Wheezing, No Smoke Exposure, No Dyspnea Gastrointestinal : Complaining of nausea vomiting and diarrhea, complaining of periumbilical pain Genitourinary : no irregular bleeding, No Dysuria, No Urinary Frequency, No Hematuria, No Urinary Incontinence, No Urgency, No Flank Pain, No Urinary Flow Changes, No Hesitancy Musculoskeletal : No joint pain, No Myalgias, No Joint Swelling Skin : No Skin Lesions, No rash Neuro : No Weakness, No Numbness, No Paresthesias, No Loss of Consciousness, No Dizziness, No Headache Psych : No Anxiety/Panic, No Depression, No SI/HI/AH/VH, No Social Issues, Heme/Lymph: No Bruising, No Bleeding,No Lymphadenopathy Endocrine : No Polyuria, No Polydipsia, No Temperature Intolerance PMFSH Past Medical History Medical History Depression Bipolar 1 disorder High cholesterol Hypertension Surgical History History of bunionectomy of right great toe History of carpal tunnel surgery of right wrist History of carpal tunnel surgery of left wrist History of hysterectomy History of section Family History Family History Mother No problems noted. Father No problems noted. 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 Oriented X3. No acute distress. Eyes: Pupils equal, round and reactive to light. ENT: Pharynx normal. Neck: Normal inspection. Neck supple. No lymph nodes noted. No crepitus CVS: Normal heart rate and rhythm. Pulses normal. Normal S1 and S2 Respiratory: No respiratory distress. Breath sounds normal. No Wheezing. No rales Abdomen: Soft , diffusely tender more so in the periumbilical area. No rebound or guarding Skin: Skin warm and dry. Normal skin color. Normal skin turgor. Extremities: No lower extremity edema. No Lacerations. No Rash Neuro: Oriented X 3. No motor deficit. No sensory deficit. Moving all extremities. No slurred speech. CN 2 through 12 grossly intact Psych: calm, cooperative, normal affect Course Course Course Narrative: Patient receiving IV fluids, Zofran, morphine and loperamide -CT scan pending Medical Decision Making Medical Decision Making MDM Narrative: -my interpretation of labs: Patient's white blood cell count is significantly elevated. Patient's blood pressure is normal, not tachycardic, no fever, sepsis not suspected. My interpretation of CT scan, no obvious small bowel obstruction, there is fluid in the colon, secondary to diarrhea -CT scan: Possible enteritis. -I discussed the CT scan with the patient, patient was hydrated, feels better, patient being discharged. Differential Diagnosis Differential Diagnoses: The differential diagnosis associated with the presentation includes Admission/Observation Consideration of admission/observation: Escalation of care including admission/observation considered (Given patient's initial presentation labs, admission considered, patient feels well to go home.) Lab Data MDM Lab Attestation statement: I reviewed the patient's lab results. 02/22/24 00:56 02/22/24 00:56 Labs: Lab Results 02/22/24 02/22/24 Range/Units 00:56 03:07 WBC 20.0 H (4.8-10.8) X10*3/uL RBC 4.19 L (4.20-5.50) X10*6/uL Hgb 12.9 (12.0-16.0) g/dl Hct 39.2 (37.0-47.0) % MCV 93.6 (80.0-98.0) fL MCH 30.8 (27.0-33.0) pg MCHC 32.9 (31.0-35.0) g/dl RDW 14.0 (11.0-16.0) % Plt Count 318 (160-400) X10*3/uL MPV 10.2 (9.4-12.3) fL Immature Gran % (Auto) 0.4 (0.0-0.4) % Neut % (Auto) 86.5 H (45-73) % Lymph % (Auto) 5.5 L (20-40) % Dawson % (Auto) 6.8 (2-11) % Eos % (Auto) 0.5 (0-4) % Baso % (Auto) 0.3 (0-2) % Lymph # (Auto) 1.1 L (1.2-4.9) X10*3/uL Dawson # (Auto) 1.4 H (0.1-1.2) X10*3/uL Eos # (Auto) 0.1 (0.0-0.4) X10*3/uL Baso # (Auto) 0.1 (0.0-0.2) X10*3/uL Abs Immat Gran (auto) 0.08 H (0.00-0.03) X10*3/uL Absolute Neuts (auto) 17.3 H (2.0-8.3) x10*3/uL Absolute Nucleated RBC 0.000 (0.0-0.012) X10*3/uL Nucleated RBC % (auto) 0.0 (0.0-0.2) /100WBC Sodium 140 (135-145) mmol/L Potassium 4.6 (3.3-5.1) mmol/L Chloride 104 (96-108) mmol/L Carbon Dioxide 26 (22-29) mmol/L Anion Gap 15 (12-20) BUN 18 H (9-16) mg/dL Creatinine 1.25 (0.5-1.4) mg/dL Estim Creat Clear Calc 46.1 Estimated GFR 45 Random Glucose 129 H (60-115) mg/dL Calcium 10.0 D (8.4-10.2) mg/dL Total Bilirubin 0.3 (0.0-1.0) mg/dL AST 15 (5-31) U/L ALT 19 (0-31) U/L Alkaline Phosphatase 120 H (39-117) U/L Total Protein 7.9 (6.5-8.0) g/dL Albumin 4.6 (3.5-5.0) g/dL Lipase 71 (8-78) U/L Urine Color Yellow Urine Appearance Clear Urine pH 6.5 (5.0-9.0) Ur Specific [place] <= 1.005 (1.005-1.025) Urine Protein Negative (Neg-Trace) mg/dL Urine Glucose (UA) Negative (Negative) mg/dL Urine Ketones Negative (Negative) mg/dL Urine Blood Negative (Negative) Urine Nitrite Negative (Negative) Ur Leukocyte Esterase Negative (Negative) Influenza Type A (PCR) NEGATIVE (Negative) Influenza Type B (PCR) NEGATIVE (Negative) RSV RNA Qual (PCR) NEGATIVE (Negative) SARS-CoV-2 RNA (RT-PCR) NEGATIVE (Negative) Independent Interpretation I performed an independent interpretation of an: CT Scan Interpretation: FINDINGS: LUNG BASES: The visualized lung bases are unremarkable. LIVER, GALLBLADDER, AND BILIARY TREE: The liver is normal in size, shape, and attenuation. No focal hepatic lesion or biliary ductal dilatation is present. The gallbladder is unremarkable with no evidence of radiopaque gallstones, gallbladder wall thickening, or obvious pericholecystic inflammatory changes. PANCREAS: Unremarkable. SPLEEN: Unremarkable. ADRENAL GLANDS: Unremarkable. KIDNEYS AND URETERS: The kidneys are normal in size, shape, and attenuation. No hydronephrosis, hydroureter, or calculi seen. No perinephric stranding. BLADDER: Unremarkable. GASTROINTESTINAL TRACT: There are diverticula of the descending and the sigmoid colon without diverticulitis. There are prominent fluid-filled mid to distal small bowel loops and fluid within the right colon. The appendix is visualized and is within normal limits ABDOMINAL WALL: No significant hernia is appreciated. LYMPH NODES: Normal. VASCULAR: Unremarkable. PELVIC VISCERA: Unremarkable. OSSEOUS STRUCTURES: Unremarkable. CT/CT abdomen pelvis w IV con IMPRESSION: 1. Prominent fluid-filled mid to distal small bowel loops and fluid within the right colon. This is nonspecific and could be related to enteritis. 2. Diverticulosis without diverticulitis. 3. The appendix is visualized and is within normal limits. Medications Administered Discontinued Medications Generic Name Dose Route Start Last Admin Trade Name Freq PRN Reason Stop Dose Admin Sodium Chloride 1,000 mls @ 999 mls/hr 02/22/24 03:12 02/22/24 04:24 Ns IVCONT 02/22/24 04:12 Infused .Q1H1M ONE Infusion Iohexol 85 ml 02/22/24 03:41 02/22/24 03:42 Iohexol 350 Mg/Ml 100 Ml Infus..Btl IV 02/22/24 03:42 85 ml ONCE ONE Administration Loperamide HCl 4 mg 02/22/24 03:17 02/22/24 03:30 Loperamide Hcl 2 Mg Capsule PO 02/22/24 03:18 Not Given ONCE ONE Morphine Sulfate 2 mg 02/22/24 03:12 02/22/24 03:23 Morphine Sulfate 2 Mg/Ml Cartridge IVPUSH 02/22/24 03:13 2 mg ONCE ONE Administration Protocol Ondansetron HCl 4 mg 02/22/24 03:12 02/22/24 03:23 Ondansetron Hcl 4 Mg/2 Ml Vial IVPUSH 02/22/24 03:13 4 mg ONCE ONE Administration Critical Care Time Critical Care Time Critical Care Time: Yes Total Critical Care Time: 60 Attestation: I have personally provided critical care time. Time includes review of lab data, radiology results, discussion with consultants, and monitoring for potential decompensation. Intervention performed as documented. Discharge Plan Discharge Clinical Impression: Enteritis Patient Disposition: Home, Self-Care Instructions: Enteritis (ED) Additional Instructions: Please follow-up with your primary care physician tomorrow. If you have any worsening or new symptoms, please return to the emergency room or call 911 Prescriptions: New amoxicillin-pot clavulanate [Augmentin] 500-125 mg tablet 1 tab PO BID Qty: 14 0RF ondansetron HCl 4 mg tablet 4 mg PO Q6H PRN (Reason: nausea and vomiting) Qty: 14 0RF No Action lidocaine 4 % adhesive patch,medicated 1 patch topical DAILY PRN (Reason: pain) Qty: 10 0RF Rx Instructions: may leave on for up to 12 hrs vancomycin 125 mg capsule 125 mg PO QID 14 Days Qty: 56 0RF ondansetron 4 mg tablet,disintegrating 4 mg PO Q8H PRN (Reason: nausea and vomiting) Qty: 10 0RF loperamide [Anti-Diarrheal (loperamide)] 2 mg capsule 2 mg PO Q6H PRN (Reason: loose stool) Qty: 30 0RF levofloxacin 750 mg tablet 750 mg PO DAILY 7 Days Qty: 7 0RF benzonatate 100 mg capsule 100 mg PO TID PRN (Reason: cough) Qty: 20 0RF fluticasone propionate [Flonase Allergy Relief] 50 mcg/actuation spray,suspension 1 spray intranasal BID Qty: 16 0RF Rx Instructions: administer into each nostril Stand Alone Forms: Work/School Release Print Language: Upper Sorbian
[2024-02-22 03:15] LABS: Appearance Urine Clear; Color Urine Yellow; Glucose Urine UA Negative (Negative); Leukocyte Esterase Urine Negative (Negative); Nitrite Urine Negative (Negative); PH 6.5 (5.0-9.0); Specific Gravity - Urine <= 1.005 (1.005-1.025); Urine Blood Negative (Negative); Urine Ketones Negative (Negative); Urine Protein Negative (Neg-Trace)
[2024-02-22] MEDS: Morphine Sulfate 2 MG/ML CARTRIDGE IVPUSH (03:23)
[2024-02-22] MEDS: ondansetron HCL 4 MG/2 ML VIAL IVPUSH (03:23)
[2024-02-22] MEDS: 0.9 % Sodium Chloride 1,000 ML 999 ML IVCONT (03:23)
--- NOTE | 2024-02-22 03:27 | MHC.EDTECH ---
Pt advised of stool sample needed. Pt states took imodium prior to coming in.
[2024-02-22] MEDS: iohexoL 350 MG/ML 100 ML INFUS..BTL 85 ML IV (03:42)
[2024-02-22 04:22] VITALS: BP 125/74; PULSE 67; RESP 16; O2SAT 98
[2024-02-22 06:13] VITALS: BP 113/54; PULSE 60; RESP 16; TEMP 36.3; O2SAT 96
--- NOTE | 2024-02-22 07:15 | PC.NURSE ---
Resumed care of pt at 0700. Pt resting in bed quietly, respirations even and unlabored, family at bedside. Pt aware of ongoing plan of care, all needs met at this time.
[2024-02-22 07:35] VITALS: BP 113/54; PULSE 79; RESP 18; TEMP 36.6; O2SAT 98
== END 2024-02-22 07:37 | disposition home or self-care (01) ==
PROVIDERS: Emergency Provider Emergency Medicine; PCP Internal Medicine
DX: K52.9 Noninfective gastroenteritis and colitis, unspecified (principal); R11.2 Nausea with vomiting, unspecified; R10.33 Periumbilical pain; Z03.818 Encounter for observation for suspected exposure to other biological agents ruled out; I10 Essential (primary) hypertension; E78.00 Pure hypercholesterolemia, unspecified; Z79.02 Long term (current) use of antithrombotics/antiplatelets; Z79.899 Other long term (current) drug therapy
CPT/HCPCS: 0241U; 74177; 80053; 81003; 83690; 85025; 96361; 96374; 96375; 99284; J2270; J2405; Q9967

== ENCOUNTER 2024-03-25 08:26 | Outpatient (REF) | payer MEDICARE, MEDICAID, SELFPAY ==
[2024-03-25 10:34] LABS: MANUAL DIFF FLAG NO
[2024-03-25 10:38] LABS: Basophils Absolute Auto 0.1 X10*3/uL (0.0-0.2); Basophils Percent Auto 0.7 % (0-2); Eosinophils Absolute Auto 0.3 X10*3/uL (0.0-0.4); Eosinophils Percent Auto 2.3 % (0-4); Hematocrit 38.4 % (37.0-47.0); Hemoglobin 12.4 g/dl (12.0-16.0); Imm Gran Abs Auto 0.05 X10*3/uL (0.00-0.03); Imm Gran Pct Auto 0.5 % (0.0-0.4); Lymphocytes Absolute Auto 2.5 X10*3/uL (1.2-4.9); Lymphocytes Percent Auto 23.1 % (20-40); Mean Corpuscular HGB Conc 32.3 g/dl (31.0-35.0); Mean Corpuscular Hemoglobin 30.6 pg (27.0-33.0); Mean Corpuscular Volume 94.8 fL (80.0-98.0); Mean Platelet Volume 10.6 fL (9.4-12.3); Monocytes Absolute Auto 0.9 X10*3/uL (0.1-1.2); Monocytes Percent Auto 8.8 % (2-11); Neutrophils Absolute Auto 6.9 x10*3/uL (2.0-8.3); Neutrophils Percent Auto 64.6 % (45-73); Platelet Count 330 X10*3/uL (160-400); Red Blood Count 4.05 X10*6/uL (4.20-5.50); Red Cell Distribution Width 14.1 % (11.0-16.0); White Blood Count 10.7 X10*3/uL (4.8-10.8)
[2024-03-25 10:55] LABS: Alanine Aminotransferase 19 U/L (0-31); Albumin Level 4.3 g/dL (3.5-5.0); Alkaline Phosphatase 100 U/L (39-117); Aspartate Amino Transferase 13 U/L (5-31); Bilirubin Direct 0.1 mg/dL (0.0-0.5); Bilirubin Total 0.3 mg/dL (0.0-1.0); Lipase 136 U/L (8-78); Total Protein 7.4 g/dL (6.5-8.0)
[2024-03-25 11:05] LABS: Amylase 181 U/L (28-100)
== END 2024-03-25 08:27 | disposition home or self-care (01) ==
LOC: HO.HMGCLDS 08:26
PROVIDERS: PCP Internal Medicine; Visit Provider Internal Medicine Gastroenterology
DX: R74.8 Abnormal levels of other serum enzymes (principal)
CPT/HCPCS: 36415; 80076; 82150; 83690; 85025

== ENCOUNTER 2024-05-13 10:51 | Outpatient (REF) | payer MEDICARE, MEDICAID, SELFPAY ==
[2024-05-13 13:43] LABS: MANUAL DIFF FLAG NO
[2024-05-13 13:57] LABS: Basophils Absolute Auto 0.1 X10*3/uL (0.0-0.2); Basophils Percent Auto 0.7 % (0-2); Eosinophils Absolute Auto 0.4 X10*3/uL (0.0-0.4); Eosinophils Percent Auto 4.3 % (0-4); Hematocrit 36.3 % (37.0-47.0); Hemoglobin 11.9 g/dl (12.0-16.0); Imm Gran Abs Auto 0.04 X10*3/uL (0.00-0.03); Imm Gran Pct Auto 0.5 % (0.0-0.4); Lymphocytes Absolute Auto 1.7 X10*3/uL (1.2-4.9); Lymphocytes Percent Auto 19.9 % (20-40); Mean Corpuscular HGB Conc 32.8 g/dl (31.0-35.0); Mean Corpuscular Hemoglobin 31.2 pg (27.0-33.0); Mean Corpuscular Volume 95.3 fL (80.0-98.0); Mean Platelet Volume 11.1 fL (9.4-12.3); Monocytes Absolute Auto 0.7 X10*3/uL (0.1-1.2); Monocytes Percent Auto 7.8 % (2-11); Neutrophils Absolute Auto 5.7 x10*3/uL (2.0-8.3); Neutrophils Percent Auto 66.8 % (45-73); Platelet Count 285 X10*3/uL (160-400); Red Blood Count 3.81 X10*6/uL (4.20-5.50); Red Cell Distribution Width 14.1 % (11.0-16.0); White Blood Count 8.5 X10*3/uL (4.8-10.8)
[2024-05-13 14:12] LABS: Alanine Aminotransferase 12 U/L (0-31); Albumin Level 4.2 g/dL (3.5-5.0); Alkaline Phosphatase 99 U/L (39-117); Amylase 107 U/L (28-100); Aspartate Amino Transferase 13 U/L (5-31); Bilirubin Direct 0.1 mg/dL (0.0-0.5); Bilirubin Total 0.3 mg/dL (0.0-1.0); Lipase 54 U/L (8-78); Total Protein 7.3 g/dL (6.5-8.0)
== END 2024-05-13 10:52 | disposition home or self-care (01) ==
LOC: HO.HMGCLDS 10:51
PROVIDERS: PCP Internal Medicine; Visit Provider Internal Medicine Gastroenterology
DX: R74.8 Abnormal levels of other serum enzymes (principal)
CPT/HCPCS: 36415; 80076; 82150; 83690; 85025

== ENCOUNTER 2024-08-21 12:54 | Outpatient (REF) | payer MEDICARE, MEDICAID, SELFPAY ==
--- NOTE | ~2024-08-21 | MM_ITS ---
EXAMINATION: MM SCREENING DIGITAL BREAST TOMOSYNTHESIS, BILATERAL CLINICAL INFORMATION: Screening. Asymptomatic. COMPARISON: Mammography: Comparison is made with available priors TECHNIQUE: Digital breast mammography with tomosynthesis is performed in both the craniocaudal and mediolateral oblique views along with computer-aided detection (CAD). FINDINGS: There are scattered areas of fibroglandular density (ACR BI-RADS breast composition Category b). There are no significant masses, abnormal calcifications, or other abnormalities. MM/MM tomosynthesis screening BI IMPRESSION: No mammographic evidence of malignancy. ASSESSMENT: BI-RADS BI-RADS 1 - Negative RECOMMENDATION: Routine annual mammography screening. 1 year F/U This examination should not preclude the clinical evaluation of a suspicious palpable abnormality. This patient's information was entered into a reminder system with a target due date for their next mammogram. Electronically signed by: Tory Vigil DO 08/25/2024 08:54 AM [facility]
== END 2024-08-21 12:55 | disposition home or self-care (01) ==
LOC: HO.MAMMO 12:54
PROVIDERS: PCP Internal Medicine; Visit Provider Physician Assistant
DX: Z12.31 Encounter for screening mammogram for malignant neoplasm of breast (principal)
CPT/HCPCS: 77063; 77067

== ENCOUNTER → 2024-08-21 13:15 | Outpatient (BNV) | payer MEDICARE, MEDICAID, SELFPAY | PROVIDERS: PCP Internal Medicine; Visit Provider Internal Medicine | DX: Z12.31 Encounter for screening mammogram for malignant neoplasm of breast (principal) | CPT/HCPCS: 77063; 77067 ==

== ENCOUNTER 2025-01-03 19:24 | Emergency (ER) | payer MEDICARE, MEDICAID, SELFPAY ==
--- NOTE | 2025-01-03 | ECG_ITS ---
Test Reason : CHEST PAIN Blood Pressure : */* mmHG Vent. Rate : 76 BPM Atrial Rate : 76 BPM P-R Int : 136 ms QRS Dur : 82 ms QT Int : 368 ms P-R-T Axes : 16 -29 146 degrees QTcB Int : 414 ms Poor data quality Normal sinus rhythm ST & T wave abnormality, consider inferior ischemia ST & T wave abnormality, consider anterior ischemia Abnormal ECG When compared with ECG of 12-Sep-2018 08:07, Nonspecific T wave abnormality now evident in Inferior leads Referred By: Katharine Hinds Electronically Signed By: Pancho Claros
[2025-01-03 19:30] VITALS: BP 117/63; PULSE 62; RESP 16; TEMP 36.7; O2SAT 97; BMI 36.4
--- NOTE | 2025-01-03 19:40 | ED.HA ---
HPI - Headache General Chief Complaint: Headache Stated Complaint: migraine, nausea Time Seen by Provider: 01/03/25 21:04 Source: patient Mode of arrival: ambulatory Limitations: no limitations History of Present Illness ED Provider: Dr. Katharine Hinds HPI Narrative: Patient comes to the emergency room complaining of a migraine headache. Patient states that earlier this morning, she took 1 dose of Fioricet. Patient states that it did not help much, usually with 1 tablet she gets significant relief. Patient complaining of nausea, no vomiting or diarrhea. Patient states that the migraine is mostly on the right side of the head. Patient denies visual changes, states that she has mild photophobia Related Data Home Medications ?Medication ?Instructions ?Recorded ?Confirmed buspirone 15 mg tablet 15 mg PO BID 10/28/20 fluoxetine 20 mg capsule 20 mg PO DAILY 10/28/20 fluoxetine 40 mg capsule 40 mg PO QAM 10/28/20 ibuprofen 800 mg tablet 800 mg PO TID 10/28/20 lamotrigine 150 mg tablet 300 mg PO DAILY 10/28/20 levothyroxine 50 mcg tablet 50 mcg PO DAILY 10/28/20 lisinopril 5 mg tablet 5 mg PO DAILY 10/28/20 melatonin 5 mg tablet 10 mg PO BEDTIME PRN 10/28/20 metoprolol tartrate 50 mg tablet 50 mg PO DAILY 10/28/20 naltrexone 50 mg tablet 50 mg PO BEDTIME 10/28/20 simvastatin 20 mg tablet 20 mg PO DAILY 10/28/20 sumatriptan succinate 100 mg tablet 100 mg PO DAILY PRN 10/28/20 tramadol 50 mg tablet 50 mg PO DAILY PRN 10/28/20 valacyclovir 500 mg tablet 500 mg PO DAILY 10/28/20 Previous Rx's ?Medication ?Instructions ?Recorded ondansetron 4 mg disintegrating 4 mg PO Q8H PRN nausea and 11/02/22 tablet vomiting #10 tabs vancomycin 125 mg capsule 125 mg PO QID 14 days #56 caps 11/02/22 levofloxacin 750 mg tablet 750 mg PO DAILY 7 days #7 tabs 11/06/22 loperamide 2 mg capsule 2 mg PO Q6H PRN loose stool #30 11/06/22 (Anti-Diarrheal (loperamide)) caps lidocaine 4 % topical patch 1 patch topical DAILY PRN pain #10 10/23/23 ea benzonatate 100 mg capsule 100 mg PO TID PRN cough #20 caps 12/05/23 fluticasone propionate 50 1 spray intranasal BID #16 grams 12/05/23 mcg/actuation nasal spray,suspension (Flonase Allergy Relief) amoxicillin 500 mg-potassium 1 tab PO BID #14 tabs 02/22/24 clavulanate 125 mg tablet (Augmentin) ondansetron HCl 4 mg tablet 4 mg PO Q6H PRN nausea and 02/22/24 vomiting #14 tabs trcaxvajrw-yxxxvnkfxchip-akozmyvq 1 cap PO Q4-6H PRN pain #10 caps 01/03/25 50 mg-300 mg-40 mg capsule (Fioricet) ondansetron HCl 4 mg tablet 4 mg PO Q6H PRN nausea and 01/03/25 vomiting #14 tabs Allergies Allergy/AdvReac Type Severity Reaction Status Date / Time promethazine [From PHENERGAN] Allergy Severe ALTERED Verified 01/03/25 19:34 MENTAL STATUS meperidine [Demerol] Allergy Unknown nausea Verified 01/03/25 19:34 Review of Systems Review of Systems: Constitutional : No Weight loss, No Fever, No Chills, No Night Sweats, No Fatigue, No Malaise ENT/Mouth : No Hearing loss, No Ear Pain, No Nasal Congestion, No Sinus Pain, No Hoarseness, No sore throat, No Rhinorrhea, No Swallowing Difficulty Eyes: No Eye Pain, No Swelling, No Redness, No Foreign Body, No Discharge, No Vision Changes Cardiovascular : No Chest Pain, No SOB, No Dyspnea on Exertion, No Orthopnea, No Edema, No Palpitations Respiratory : No Cough, No Sputum, No Wheezing, No Smoke Exposure, No Dyspnea Gastrointestinal : No Nausea, No Vomiting, No Diarrhea, No Constipation, No abdominal Pain, No Hematochezia, No Melena Genitourinary : no irregular bleeding, No Dysuria, No Urinary Frequency, No Hematuria, No Urinary Incontinence, No Urgency, No Flank Pain, No Urinary Flow Changes, No Hesitancy Musculoskeletal : No joint pain, No Myalgias, No Joint Swelling Skin : No Skin Lesions, No rash Neuro : No Weakness, No Numbness, No Paresthesias, No Loss of Consciousness, No Dizziness, complaining of a migraine Headache Psych : No Anxiety/Panic, No Depression, No SI/HI/AH/VH, No Social Issues, Heme/Lymph: No Bruising, No Bleeding,No Lymphadenopathy Endocrine : No Polyuria, No Polydipsia, No Temperature Intolerance [facility] Past Medical History Medical History Depression Bipolar 1 disorder High cholesterol Hypertension Surgical History History of bunionectomy of right great toe History of carpal tunnel surgery of right wrist History of carpal tunnel surgery of left wrist History of hysterectomy History of section Family History Family History Mother No problems noted. Father No problems noted. 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 Oriented X3. No acute distress. Eyes: Pupils equal, round and reactive to light. ENT: Pharynx normal. Neck: Normal inspection. Neck supple. No lymph nodes noted. No crepitus CVS: Normal heart rate and rhythm. Pulses normal. Normal S1 and S2 Respiratory: No respiratory distress. Breath sounds normal. No Wheezing. No rales Abdomen: Soft and nontender. No rigidity. No distention. Skin: Skin warm and dry. Normal skin color. Normal skin turgor. Extremities: No lower extremity edema. No Lacerations. No Rash Neuro: Oriented X 3. No motor deficit. No sensory deficit. Moving all extremities. No slurred speech. CN 2 through 12 grossly intact Psych: calm, cooperative, normal affect Course Course Course Narrative: This is an RME performed by Rigoberto Alfonso CNP: Additional HPI, ROS, PE not included below will be deferred to primary provider. Patient is a 54-year-old female presents emergency department for evaluation from migraine headache with onset 10:00 this morning took Fioricet approximately 12:00 without much improvement. Has associated nausea with has been no vomiting. History of similar migraines in the past, unchanged from baseline. Denies dizziness, vision changes, neck pain/ stiffness, precipitating injury, use of anticoagulants. No focal neurological deficits Plan: Serum labs, viral serologies Medications Administered Discontinued Medications Generic Name Dose Route Start Last Admin Trade Name Freq PRN Reason Stop Dose Admin Diphenhydramine HCl 25 mg 01/03/25 21:24 01/03/25 21:36 Diphenhydramine Hcl 50 Mg/Ml Vial IVPUSH 01/03/25 21:25 25 mg ONCE ONE Administration Sodium Chloride 1,000 mls @ 999 mls/hr 01/03/25 21:24 01/03/25 22:59 Ns IVCONT 01/03/25 22:24 Infused .Q1H1M ONE Infusion Ketorolac Tromethamine 30 mg 01/03/25 21:24 01/03/25 21:36 Ketorolac Tromethamine 30 Mg/Ml Vial IVPUSH 01/03/25 21:25 30 mg ONCE ONE Administration Lorazepam 1 mg 01/03/25 21:55 01/03/25 22:07 Lorazepam 1 Mg Tablet PO 01/03/25 21:56 1 mg ONCE ONE Administration Metoclopramide HCl 10 mg 01/03/25 21:24 01/03/25 21:36 Metoclopramide Hcl 10 Mg/2 Ml Vial IVPUSH 01/03/25 21:25 10 mg ONCE ONE Administration Medical Decision Making Medical Decision Making MDM Narrative: Patient receiving IV fluids, ketorolac, diphenhydramine, Reglan Patient's white blood cell count 13.4, likely reactive leukocytosis, patient reports no source of infection. Normal chemistry, serology negative Earlier today, when patient was given Reglan, she started feeling very anxious, given p.o. Ativan which resolved for symptoms. After the above-mentioned medications, patient states that her headache is significantly improved, nearly resolved. Differential Diagnosis Differential Diagnoses: The differential diagnosis associated with the presentation includes (Migraine headache, tension headache, anxiety) Lab Data MDM Lab Attestation statement: I reviewed the patient's lab results. 01/03/25 20:13 01/03/25 20:13 Labs: Lab Results 01/03/25 Range/Units 20:13 WBC 13.4 H (4.8-10.8) X10*3/uL RBC 4.07 L (4.20-5.50) X10*6/uL Hgb 12.6 (12.0-16.0) g/dl Hct 37.7 (37.0-47.0) % MCV 92.6 (80.0-98.0) fL MCH 31.0 (27.0-33.0) pg MCHC 33.4 (31.0-35.0) g/dl RDW 14.2 (11.0-16.0) % Plt Count 307 (160-400) X10*3/uL MPV 9.9 (9.4-12.3) fL Immature Gran % (Auto) 0.3 (0.0-0.4) % Neut % (Auto) 80.2 H (45-73) % Lymph % (Auto) 11.6 L (20-40) % Overton % (Auto) 6.2 (2-11) % Eos % (Auto) 1.3 (0-4) % Baso % (Auto) 0.4 (0-2) % Lymph # (Auto) 1.6 (1.2-4.9) X10*3/uL Overton # (Auto) 0.8 (0.1-1.2) X10*3/uL Eos # (Auto) 0.2 (0.0-0.4) X10*3/uL Baso # (Auto) 0.1 (0.0-0.2) X10*3/uL Abs Immat Gran (auto) 0.04 H (0.00-0.03) X10*3/uL Absolute Neuts (auto) 10.7 H (2.0-8.3) x10*3/uL Absolute Nucleated RBC 0.000 (0.0-0.012) X10*3/uL Nucleated RBC % (auto) 0.0 (0.0-0.2) /100WBC Sodium 141 (135-145) mmol/L Potassium 4.1 (3.3-5.1) mmol/L Chloride 108 (96-108) mmol/L Carbon Dioxide 23 (22-29) mmol/L Anion Gap 14 (12-20) BUN 16 (9-16) mg/dL Creatinine 1.00 (0.5-1.4) mg/dL Estim Creat Clear Calc 53.8 Estimated GFR 58 Random Glucose 150 H (60-115) mg/dL Calcium 9.2 D (8.4-10.2) mg/dL Total Bilirubin 0.2 (0.0-1.0) mg/dL AST 20 (5-31) U/L ALT 22 (0-31) U/L Alkaline Phosphatase 102 (39-117) U/L Total Protein 7.5 (6.5-8.0) g/dL Albumin 4.4 (3.5-5.0) g/dL Lipase 69 (8-78) U/L Influenza Type A (PCR) NEGATIVE (Negative) Influenza Type B (PCR) NEGATIVE (Negative) RSV RNA Qual (PCR) NEGATIVE (Negative) SARS-CoV-2 RNA (RT-PCR) NEGATIVE (Negative) Critical Care Time Critical Care Time Critical Care Time: Yes Total Critical Care Time: 45 Attestation: I have personally provided critical care time. Time includes review of lab data, radiology results, discussion with consultants, and monitoring for potential decompensation. Intervention performed as documented. Discharge Plan Discharge Clinical Impression: Migraine Patient Disposition: Home, Self-Care Instructions: Migraine Headache (ED) Additional Instructions: Please follow-up with your primary care physician tomorrow. If you have any worsening or new symptoms, please return to the emergency room or call 911 Prescriptions: New rhltybsgqt-mcqobdyxhigep-ztni [Fioricet] 50-300-40 mg capsule 1 cap PO Q4-6H PRN (Reason: pain) Qty: 10 0RF ondansetron HCl 4 mg tablet 4 mg PO Q6H PRN (Reason: nausea and vomiting) Qty: 14 0RF No Action lidocaine 4 % adhesive patch,medicated 1 patch topical DAILY PRN (Reason: pain) Qty: 10 0RF Rx Instructions: may leave on for up to 12 hrs amoxicillin-pot clavulanate [Augmentin] 500-125 mg tablet 1 tab PO BID Qty: 14 0RF ondansetron HCl 4 mg tablet 4 mg PO Q6H PRN (Reason: nausea and vomiting) Qty: 14 0RF vancomycin 125 mg capsule 125 mg PO QID 14 Days Qty: 56 0RF ondansetron 4 mg tablet,disintegrating 4 mg PO Q8H PRN (Reason: nausea and vomiting) Qty: 10 0RF loperamide [Anti-Diarrheal (loperamide)] 2 mg capsule 2 mg PO Q6H PRN (Reason: loose stool) Qty: 30 0RF levofloxacin 750 mg tablet 750 mg PO DAILY 7 Days Qty: 7 0RF benzonatate 100 mg capsule 100 mg PO TID PRN (Reason: cough) Qty: 20 0RF fluticasone propionate [Flonase Allergy Relief] 50 mcg/actuation spray,suspension 1 spray intranasal BID Qty: 16 0RF Rx Instructions: administer into each nostril Print Language: Guamanian
[2025-01-03 20:03] VITALS: BP 118/66; PULSE 63; RESP 16; TEMP 36.6; O2SAT 97
[2025-01-03 20:20] LABS: MANUAL DIFF FLAG NO
[2025-01-03 20:21] LABS: Basophils Absolute Auto 0.1 X10*3/uL (0.0-0.2); Basophils Percent Auto 0.4 % (0-2); Eosinophils Absolute Auto 0.2 X10*3/uL (0.0-0.4); Eosinophils Percent Auto 1.3 % (0-4); Hematocrit 37.7 % (37.0-47.0); Hemoglobin 12.6 g/dl (12.0-16.0); Imm Gran Abs Auto 0.04 X10*3/uL (0.00-0.03); Imm Gran Pct Auto 0.3 % (0.0-0.4); Lymphocytes Absolute Auto 1.6 X10*3/uL (1.2-4.9); Lymphocytes Percent Auto 11.6 % (20-40); Mean Corpuscular HGB Conc 33.4 g/dl (31.0-35.0); Mean Corpuscular Volume 92.6 fL (80.0-98.0); Mean Platelet Volume 9.9 fL (9.4-12.3); Monocytes Absolute Auto 0.8 X10*3/uL (0.1-1.2); Monocytes Percent Auto 6.2 % (2-11); Neutrophils Absolute Auto 10.7 x10*3/uL (2.0-8.3); Neutrophils Percent Auto 80.2 % (45-73); Platelet Count 307 X10*3/uL (160-400); Red Blood Count 4.07 X10*6/uL (4.20-5.50); Red Cell Distribution Width 14.2 % (11.0-16.0); White Blood Count 13.4 X10*3/uL (4.8-10.8)
[2025-01-03 20:36] LABS: Alanine Aminotransferase 22 U/L (0-31); Albumin Level 4.4 g/dL (3.5-5.0); Alkaline Phosphatase 102 U/L (39-117); Anion Gap 14 (12-20); Aspartate Amino Transferase 20 U/L (5-31); Bilirubin Total 0.2 mg/dL (0.0-1.0); Blood Urea Nitrogen 16 mg/dL (9-16); Calcium 9.2 mg/dL (8.4-10.2); Carbon Dioxide 23 mmol/L (22-29); Chloride 108 mmol/L (96-108); Creatinine Clr Calc Pharmacy 53.8; Estimated Glomerular Filt Rate 58; Glucose Random 150 mg/dL (60-115); Lipase 69 U/L (8-78); Potassium 4.1 mmol/L (3.3-5.1); Sodium 141 mmol/L (135-145); Total Protein 7.5 g/dL (6.5-8.0)
[2025-01-03 20:56] LABS: Influenza A PCR NEGATIVE (Negative); Influenza B PCR NEGATIVE (Negative); Resp Syncy Virus RNA Qual PCR NEGATIVE (Negative); SARS COV2 PCR INHOUSE NEGATIVE (Negative)
[2025-01-03] MEDS: 0.9 % Sodium Chloride 1,000 ML 999 ML IVCONT (21:36)
[2025-01-03] MEDS: Ketorolac Tromethamine 30 MG/ML VIAL IVPUSH (21:36)
[2025-01-03] MEDS: Metoclopramide HCl 10 MG/2 ML VIAL IVPUSH (21:36)
[2025-01-03] MEDS: diphenhydrAMINE HCL 50 MG/ML VIAL 25 MG IVPUSH (21:36)
[2025-01-03 21:43] VITALS: BP 137/63; PULSE 65; RESP 20; TEMP 36.4; O2SAT 98
[2025-01-03] MEDS: LORazepam 1 MG TABLET PO (22:07)
[2025-01-03 23:04] VITALS: BP 113/47; PULSE 79; RESP 15; TEMP 36.9; O2SAT 97
[2025-01-03 23:46] VITALS: BP 101/50; PULSE 89; RESP 19; TEMP 36.7; O2SAT 97
[2025-01-03 23:52] VITALS: BP 101/50; PULSE 89; RESP 19; TEMP 36.7; O2SAT 97
== END 2025-01-03 23:55 | disposition home or self-care (01) ==
PROVIDERS: Nurse Practitioner Family; Emergency Provider Emergency Medicine; PCP Internal Medicine
DX: G43.909 Migraine, unspecified, not intractable, without status migrainosus (principal); R07.89 Other chest pain; R11.0 Nausea; Z03.818 Encounter for observation for suspected exposure to other biological agents ruled out; Z79.899 Other long term (current) drug therapy
CPT/HCPCS: 0241U; 80053; 83690; 85025; 93005; 96361; 96374; 96375; 99284; 99285; J1200; J1885; J2765

== ENCOUNTER → 2025-01-03 21:54 | Outpatient (BNV) | payer MEDICARE, MEDICAID, SELFPAY | PROVIDERS: Emergency Provider Emergency Medicine; PCP Internal Medicine; Visit Provider Internal Medicine Cardiovascular Disease | DX: R94.31 Abnormal electrocardiogram [ECG] [EKG] (principal); R07.9 Chest pain, unspecified | CPT/HCPCS: 93010 ==

== ENCOUNTER 2025-03-23 11:05 | Outpatient (REF) | payer MEDICARE, MEDICAID, SELFPAY ==
[2025-03-23 12:37] LABS: MANUAL DIFF FLAG NO
[2025-03-23 13:29] LABS: Hematocrit 36.7 % (37.0-47.0); Hemoglobin 11.9 g/dl (12.0-16.0); Imm Gran Abs Auto 0.06 X10*3/uL (0.00-0.03); Imm Gran Pct Auto 0.6 % (0.0-0.4); Lymphocytes Absolute Auto 2.3 X10*3/uL (1.2-4.9); Mean Corpuscular HGB Conc 32.4 g/dl (31.0-35.0); Mean Corpuscular Hemoglobin 30.8 pg (27.0-33.0); Mean Corpuscular Volume 95.1 fL (80.0-98.0); NRBC Abs Auto 0.000 X10*3/uL (0.0-0.012); NRBC Pct Auto 0.0 /100WBC (0.0-0.2); Platelet Count 329 X10*3/uL (160-400); Red Blood Count 3.86 X10*6/uL (4.20-5.50); White Blood Count 9.3 X10*3/uL (4.8-10.8)
[2025-03-23 14:09] LABS: Alanine Aminotransferase 25 U/L (0-31); Albumin Level 4.7 g/dL (3.5-5.0); Alkaline Phosphatase 107 U/L (39-117); Anion Gap 15 (12-20); Aspartate Amino Transferase 25 U/L (5-31); Blood Urea Nitrogen 13 mg/dL (9-16); Calcium 9.4 mg/dL (8.4-10.2); Carbon Dioxide 27 mmol/L (22-29); Chloride 104 mmol/L (96-108); Estimated Glomerular Filt Rate > 60; Potassium 4.1 mmol/L (3.3-5.1); Sodium 142 mmol/L (135-145); Total Protein 7.8 g/dL (6.5-8.0)
[2025-03-23 14:38] LABS: Folate 8.1 ng/mL (> or = 4.0); Vitamin B12 1184 pg/mL (200-900)
[2025-03-25 07:08] LABS: Lyme Abs Screen <0.90 index
[2025-03-27 11:25] LABS: Anti Nuclear Antibody Screen NEGATIVE (NEGATIVE)
== END 2025-03-23 11:06 | disposition home or self-care (01) ==
LOC: HO.LAB 11:05
PROVIDERS: PCP Internal Medicine; Referring Provider Internal Medicine; Visit Provider Registered Nurse
DX: Z01.84 Encounter for antibody response examination (principal); G43.909 Migraine, unspecified, not intractable, without status migrainosus; G62.9 Polyneuropathy, unspecified; Z11.3 Encounter for screening for infections with a predominantly sexual mode of transmission; Z79.899 Other long term (current) drug therapy
CPT/HCPCS: 36415; 80053; 82607; 82746; 82784; 85025; 85652; 86038; 86334; 86617; 86618; 99212

== ENCOUNTER 2025-03-23 11:05 | Outpatient (AMB) | payer MEDICARE, MEDICAID, SELFPAY ==
--- NOTE | 2025-03-23 11:25 | MHC.OFFVIS ---
Intake Visit Reasons: 3 month PN Allergies promethazine (From PHENERGAN) Allergy (Severe, Verified 03/23/25 11:29) ALTERED MENTAL STATUS meperidine (Demerol) Allergy (Unknown, Verified 03/23/25 11:29) nausea Medication List - Last Reconciled 03/23/25 by Carley Medrano, MADYSON benzonatate 100 mg PO TID PRN buspirone 15 mg PO BID buycgdttvg-pfnoambvhsvmh-ilxr 50-325-40 mg 1 tab PO Q6H PRN fluoxetine 40 mg PO QAM fluoxetine 20 mg PO DAILY fluticasone propionate 50 mcg/actuation (Flonase Allergy Relief) 1 spray intranasal BID gabapentin 400 mg PO BEDTIME ibuprofen 800 mg PO TID levothyroxine 50 mcg PO DAILY lidocaine 4% 1 patch topical DAILY PRN lisinopril 5 mg PO DAILY loperamide (Anti-Diarrheal (loperamide)) 2 mg PO Q6H PRN metoprolol tartrate 50 mg PO DAILY naltrexone 50 mg PO BEDTIME ondansetron 4 mg PO Q8H PRN simvastatin 20 mg PO DAILY valacyclovir 500 mg PO DAILY HPI Comments Details: Migraines have been okay. Gets about 2 migraines/month. Uses butalbital as needed with good relief. Continues with constant numbness, tingling, and pain to both feet, worse at night and disrupting sleep. Pain can be burning-type. She tried amitriptyline, but did not like how she felt with medication and stopped it. She was taking gabapentin 400mg at bedtime without any improvement. She was walking frequently at work, working at [employer], no falls. No history of diabetes. She has history of alcohol use disorder in the past with heavy alcohol use in 30s-40s, currently drinking alcohol (1 glass of wine) on occasion. No back pain. She has SCC (x5 surgeries) for fecal incontinence. Her sister also has neuropathy of unknown cause, no history of diabetes in sister. ? Started with numbness, tingling, and discomfort in both feet constantly affecting her sleep in early 2024, without difficulty walking. Migraines relieved by Fioricet or Excedrin Migraine. Occasional dizziness for about 5 minutes with lightheadedness. Loses her balance when turning, no recent falls. Was having 2-3 minutes of dizziness 1-2x/day on turning with off balance feeling, usually on moving too fast. No syncope. Had possible syncopal episode and fell on 09/12/2018 after passing out in shower and falling out of tub, lying on side and bruised left eye. No tongue bite. CT negative, EKG normal. Regular headache when stressed. [facility] Medical History (Updated 03/23/25 @ 11:30 by Carley Medrano CNP) Carpal tunnel syndrome of right wrist Bipolar disorder Insomnia Migraine Depression Bipolar 1 disorder High cholesterol Hypertension Surgical History History of bunionectomy of right great toe History of carpal tunnel surgery of right wrist History of carpal tunnel surgery of left wrist History of hysterectomy History of section Family History (Updated 03/23/25 @ 11:41 by Carley Medrano CNP) Mother No problems noted. Father No problems noted. 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 Review of Systems Const Denies chills, Denies daytime sleepiness, Reports difficulty sleeping, Denies fatigue, Denies fever(s), Denies frequent falls, Reports headache(s), Denies increased appetite, Denies poor appetite, Denies snoring, Denies weakness, Denies weight gain and Denies weight loss Eyes Denies loss of vision ENT Denies vertigo, Denies dizziness, Reports headache(s) and Denies neck pain Card Denies chest pain at rest, Denies chest pain with activity, Denies syncope, Denies leg edema, Denies palpitations, Denies dyspnea and Denies dyspnea on exertion Resp Denies cough, Denies dyspnea, Denies dyspnea on exertion and Denies snoring GI Denies abdominal pain, Denies constipation, Denies heartburn, Denies diarrhea and Denies nausea Denies urinary frequency, Denies urinary incontinence and Denies urinary urgency Musc Denies abnormal gait, Denies back pain, Denies myalgias, Denies arthralgias, Denies neck pain, Reports numbness and Reports tingling Neuro Denies abnormal gait, Denies vertigo, Denies dizziness, Denies syncope, Denies frequent falls, Reports headache(s), Denies lack of coordination, Denies loss of vision, Denies memory loss, Reports numbness, Denies Other visual disturbances, Denies restless legs, Denies seizure-like activity, Reports tingling, Denies paresthesias, Denies tremor(s) and Denies weakness Psych Reports anxiety, Reports depression, Denies auditory hallucinations, Denies memory loss and Denies visual hallucinations Endo Denies fatigue and Denies palpitations Physical Exam Const Other: General Appearance:? normal, in no acute distress. Heart:? S1, S2 normal, no murmurs. Lungs:? clear anteriorly and posteriorly. Musculoskeletal:? normal. Extremities:? no edema. Psych:? alert, oriented, cognitive function intact, cooperative with exam. Neuro Other: Abnormal Neurological Findings:?AJs absent. Decreased pin prick in toes.? Mental Status: alert and oriented X 3. Normal attention, orientation, memory, and affect. Cranial Nerves: Pupils are equal, round, and reactive to light. External ocular muscles are intact. Visual rodriguez are full, no ptosis. Face is symmetrical, no facial weakness or droop. Facial sensations are normal. Tongue protrudes in midline. Palate elevates symmetrically. Shoulder shrugging is normal Motor Examination: As above, otherwise normal muscle tone, bulk and strength. No atrophy or fasciculations. No drift of the extended upper extremities. DTR 2+. Plantars are flexor. Sensory Exam: As above, otherwise normal light touch, temperature, pinprick, vibration, and joint-position sensations. Rhomberg sign is absent. Coordination: No ataxia. No titubation. Gait Exam: Within normal limits. Cerebellar Signs: Bpqlkf-fb-ckpw is okay. Extrapyramidal System: No tremor, rigidity with normal facial expressions. No bradykinesia. No bradyphrenia. Normal arm swing and posture. No propulsion or retropulsion. Speech: Normal. Results Reviewed Results Reviewed: 01/06/25 NCV/EMG LE Severe axonal sensory motor diffuse peripheral neuropathy in the lower extremities. EMG in the left L4-S1 innervated muscles is consistent with neuropathic changes. Assessment & Plan Assessment & Plan (1) Migraine: Code(s): G43.909 - Migraine, unspecified, not intractable, without status migrainosus Category: Medical Qualifiers: Migraine type: unspecified Status migrainosus presence: without status migrainosus Intractability: not intractable Qualified Code(s): G43.909 - Migraine, unspecified, not intractable, without status migrainosus Plan: Continue jeeawnxlth-KPWV-sdcm 50-325-40mg 1 tablet as needed q6h for headache #20 for 30 days (2) Peripheral neuropathy: Code(s): G62.9 - Polyneuropathy, unspecified Category: Medical Qualifiers: Peripheral neuropathy type: polyneuropathy, unspecified Qualified Code(s): G62.9 - Polyneuropathy, unspecified Plan: NCV/EMG results reviewed. She had side effects with amitriptyline and stopped medication. She was taking gabapentin 400mg at bedtime without improvement. Stop gabapentin. Start pregabalin 100mg 1 capsule twice a day. She has previous history of heavy alcohol use, and was currently drinking alcohol on occasion. Her sister also has neuropathy and reports no cause has been identified. Reviewed labs ordered. Plan Meds tried: amitriptyline, gabapentin Orders: Orders Comprehensive Met. Panel Today G62.9 - Polyneuropathy, unspecified Vitamin B12 and Folate Today G62.9 - Polyneuropathy, unspecified WANDA Reflex Titer and Pattern Today G62.9 - Polyneuropathy, unspecified Immunofixation Pnl, Serum Today G62.9 - Polyneuropathy, unspecified Complete Blood Count Auto Diff Today G62.9 - Polyneuropathy, unspecified Erythrocyte Sedimentation Rate Today G62.9 - Polyneuropathy, unspecified Lyme IgG/IgM w/reflex to WB Today G62.9 - Polyneuropathy, unspecified Heavy Metals Screen 24H Urine Today G62.9 - Polyneuropathy, unspecified Medications: New pregabalin 100 mg PO BID 60 caps 2RF 30 days bjshzmzlua-pleashhaxdssq-nyoz 50-325-40 mg 1 tab PO Q6H PRN 20 tabs 5RF headache 30 days Coding Level of Care Code Est Pt Level 4 (67693) Diagnoses Migraine without status migrainosus, not intractable, unspecified migraine type G43.909 Migraine type: unspecified Status migrainosus presence: without status migrainosus Intractability: not intractable Peripheral polyneuropathy G62.9 Peripheral neuropathy type: polyneuropathy, unspecified
--- OUTSIDE RECORDS SUMMARY | 2025-03-23 12:13 | XMS_ITS | Patient Health Record ---
Author Organization [facility] Address [address] [place] [address] Care Team Providers Care Occupational Therapist'S Assistant Name Role Phone Roni Gunter Primary Care Provider Fermín Monreal Jr Unavailable Allergies Allergen (clinical drug ingredient) Drug/Non Drug Allergy documented on EMR Reaction Allergy Type Onset Date Status promethazine Phenergan Unknown Drug Allergy Acti ve meperidine Demerol Unknown Drug Allergy Active Results Component Value Reference Range Notes Complete Blood Count Auto Di ff Reviewed date:04/09/2024 08:21:10 AM Interpretation: Performing Lab:[facility], [address] [place] [phone] Notes/Report: White Blood Count 10.7 4.8-10.8 X10*3/uL Red Blood Count 4.05 4.20-5.50 X10*6/uL Hemoglobin 12.4 12.0-16.0 g/dl Hematocrit 38.4 37.0-47.0 % Mean Corpuscular Volume 94.8 80.0-98.0 fL Mean Corpuscular Hemoglobin 30.6 27.0-33.0 pg Mean Corpuscular HGB Conc 32.3 31.0-35.0 g/dl Red Cell Distribution Width 14.1 11.0-16.0 % Platelet Count 330 160-400 X10*3/uL Mean Platelet Volume 10.6 9.4-12.3 fL Neutrophils Percent Auto 64.6 45-73 % Imm Gran Pct Auto 0.5 0.0-0.4 % Lymphocytes Percent Auto 23.1 20-40 % Monocytes Percent Auto 8.8 2-11 % Eosinophils Percent Auto 2.3 0-4 % Basophils Percent Auto 0.7 0-2 % NRBC Pct Auto 0.0 0.0-0.2 /100WBC Neutrophils Absolute Auto 6.9 2.0-8.3 x10*3/u L Imm Gran Abs Auto 0.05 0.00-0.03 X10*3/uL Lymphocytes Absolute Auto 2.5 1.2-4.9 X10*3/u L Monocytes Absolute Auto 0.9 0.1-1.2 X10*3/uL Eosinophils Absolute Auto 0.3 0.0-0.4 X10*3/u L Basophils Absolute Auto 0.1 0.0-0.2 X10*3/uL NRBC Abs Auto 0.000 0.0-0.012 X10*3/uL Liver Panel Reviewed date:04/09/2024 08:21:03 AM Interpretation: Performing Lab:[facility], [address] [place] [phone] Notes/Report: Bilirubin Total 0.3 0.0-1.0 mg/dL Bilirubin Direct 0.1 0.0-0.5 mg/dL Aspartate Amino Transferase 13 5-31 U/L Alanine Aminotransferase 19 0-31 U/L Total Protein 7.4 6.5-8.0 g/dL Albumin Level 4.3 3.5-5.0 g/dL Alkaline Phosphatase 100 39-117 U/L Amylase Reviewed date:04/09/2024 08:20:56 AM Interpretation: Performing Lab:[facility], [address] [place] [phone] Notes/Report: Amylase 181 28-100 U/L Lipase Reviewed date:04/09/2024 08:05:23 AM Interpretation: Performing Lab:[facility], [address] [place] [phone] Notes/Report: Lipase 136 8-78 U/L Complete Blood Count Auto Di ff Reviewed date:05/14/2024 09:40:03 AM Interpretation: Performing Lab:[address] [phone] Notes/Report: White Blood Count 8.5 4.8-10.8 X10*3/uL Red Blood Count 3.81 4.20-5.50 X10*6/uL Hemoglobin 11.9 12.0-16.0 g/dl Hematocrit 36.3 37.0-47.0 % Mean Corpuscular Volume 95.3 80.0-98.0 fL Mean Corpuscular Hemoglobin 31.2 27.0-33.0 pg Mean Corpuscular HGB Conc 32.8 31.0-35.0 g/dl Red Cell Distribution Width 14.1 11.0-16.0 % Platelet Count 285 160-400 X10*3/uL Mean Platelet Volume 11.1 9.4-12.3 fL Neutrophils Percent Auto 66.8 45-73 % Imm Gran Pct Auto 0.5 0.0-0.4 % Lymphocytes Percent Auto 19.9 20-40 % Monocytes Percent Auto 7.8 2-11 % Eosinophils Percent Auto 4.3 0-4 % Basophils Percent Auto 0.7 0-2 % NRBC Pct Auto 0.0 0.0-0.2 /100WBC Neutrophils Absolute Auto 5.7 2.0-8.3 x10*3/u L Imm Gran Abs Auto 0.04 0.00-0.03 X10*3/uL Lymphocytes Absolute Auto 1.7 1.2-4.9 X10*3/u L Monocytes Absolute Auto 0.7 0.1-1.2 X10*3/uL Eosinophils Absolute Auto 0.4 0.0-0.4 X10*3/u L Basophils Absolute Auto 0.1 0.0-0.2 X10*3/uL NRBC Abs Auto 0.000 0.0-0.012 X10*3/uL Liver Panel Reviewed date:05/14/2024 09:39:57 AM Interpretation: Performing Lab:[facility], [address] [place] [phone] Notes/Report: Bilirubin Total 0.3 0.0-1.0 mg/dL Bilirubin Direct 0.1 0.0-0.5 mg/dL Aspartate Amino Transferase 13 5-31 U/L Alanine Aminotransferase 12 0-31 U/L Total Protein 7.3 6.5-8.0 g/dL Albumin Level 4.2 3.5-5.0 g/dL Alkaline Phosphatase 99 39-117 U/L Amylase Reviewed date:05/14/2024 09:39:52 AM Interpretation: Performing Lab:[facility], [address] [place] [phone] Notes/Report: Amylase 107 28-100 U/L Lipase Reviewed date:05/14/2024 09:39:45 AM Interpretation: Performing Lab:[facility], [address] [place] [phone] Notes/Report: Lipase 54 8-78 U/L Reason For Referral No Information Medications Medication SIG (Take, Route, Frequency, Duration) Notes Start Date End Date Status Fioricet prn Not-Ty ing Estradiol 0.075 Not- Taking PROzac Not-Taking Anusol-HC 25 MG 1 suppository Rectal Twice a day for 14 day(s) 02/04/2015 Not-Taking Ibuprofen 800 MG 1 tablet with food o r milk as needed Orally every 8 hrs Active Melatonin PRN Active FLUoxetine HCl 20 MG Orally Active Dicyclomine HCl 20 MG 1 tablet Orally 2- 4 times a day for 30 days 11/14/2022 Active Loperamide A-D 2 MG 1 tablet as needed Orally Four times a day for 30 days Active Imitrex 100 MG 1 tablet as needed o ne time Orally Once a day Active Fluoxetine 40mg 1 tablet with 20 mg tablet orally once a day Active Tylenol 325 MG 1 tablet as needed Orally every 4 hrs/prn PRN Active busPIRone HCl 15 MG 1 tablet Orally Twic e a day Active Levothyroxine Sodium 50 MCG 1 tablet Orally Once a day Active Metoprolol & Diet Manage Prod 50mg 1 tablet Orally once a day Active Simvastatin 20 MG 1 tablet in the even ing Orally once in evening Active lamoTRIgine 200mg 1 tablet with additi on 2- 25 mg tablets Orally Once in evening Active valACYclovir HCl 500 MG 1 tablet Orally every 24 hrs Active Lisinopril 5 MG 1 tablet Orally Once a day Active Immunizations Vaccine Route Administration Date Status Comme nts Flu vaccine no Preserv 3 and > Unknown 08/24/2014 Admin istered Flu vaccine no Preserv 3 and > Unknown 06/28/2015 Admin istered Flu vaccine no Preserv 3 and > Unknown 05/21/2017 Admin istered Influenza Unknown 05/21/2018 Administered Influenza Unknown 06/11/2018 Administered Influenza Unknown 05/12/2019 Administered Influenza Unknown 05/25/2020 Administered Influenza Unknown 09/11/2021 Administered Influenza Unknown 07/02/2023 Administered Social History Alcohol Screen Question Answer Notes Did you have a drink contain ing alcohol in the past year? Yes How often did you have a dri nk containing alcohol in the past year? 2 to 4 times a month (2 points) How many drinks did you have on a typical day when you were drinking in the past year? 1 or 2 drinks (0 point) How often did you have 6 or more drinks on one occasion in the past year? Never (0 point) Points 2 Interpretation Negative Problems Problem Type SNOMED Code ICD Code Onset Dates Problem Status W/U Status Risk Notes Problem 707530899 Colon cancer screening (Z12.11) Active confirmed Problem 20382136 Rectal bleeding (K62.5) Active confirmed Problem 242248994 Bloating (R14.0) Active confirmed Problem 129501756 Irritable bowel syndrome with diarrhea (K58.0) Active confirmed Problem 676262145 Abnormal levels of other serum enzymes (R74.8) Active confirmed Problem 44085443 Diarrhea, unspecified type (R19.7) Active confirmed Problem 09682011 Irritable bowel syndrome with both constipation and diarrhea (K58.2) Active confirmed Problem 51286845 Incontinence of feces, unspecified fecal incontinence type (R15.9) Active confirmed Problem 022165683 RUQ pain (R10.11) Active confirmed Problem 007637734 Elevated pancreatic enzyme (R74.8) Active confirmed Problem 726989024 Abnormal blood chemistry (R79.9) Active confirmed Vital Signs Temperature 97.5 degrees Fahrenheit 05/18/2024 Blood pressure diastolic 00 mm Hg 05/18/2024 Height 59 in 05/18/2024 Blood pressure systolic 000 mm Hg 05/18/2024 Weight 170 lbs 05/18/2024 BMI 34.33 kg/m2 05/18/2024 Encounters Encounter Location Date Provider Diagnosis [facility] [address] [place] [address] 05/18/2024 Fermín Mcintosh Jr Irritable bowel syndrome with both constipation and diarrhea K58.2 ; Colon cancer screening Z12.11 and Elevated pancreatic enzyme R74.8 [facility] [address] [place] [address] 04/09/2024 Fermín Mcintosh Jr Abnormal levels of other serum enzymes R74.8 [facility] [address] [place] [address] 05/14/2024 Fermín Mcintosh Jr Assessments Encounter Date Diagnosis (ICD Code) Assessment Notes Treatment Notes Treatment Clinical Notes Section Notes 05/18/2024 Colon cancer screening (ICD-10 - Z12.11) At this time, she is doing well. We reviewed her laboratory studies from earlier this month which were done because of some complaints of abdominal discomfort. She showed mild anemia with a hematocrit of 36.3. Liver function tests were normal. Amylase was slightly elevated but lipase was normal. Imaging from earlier this year showed a normal pancreas on CT scanning. Previous elevations of her pancreatic enzymes have essentially resolved. Followup will be in one year. 05/18/2024 Irritable bowel syndrome with both constipation and diarrhea (ICD-10 - K58.2) Preventive health care material was printed At this time, she is doing well. We reviewed her laboratory studies from earlier this month which were done because of some complaints of abdominal discomfort. She showed mild anemia with a hematocrit of 36.3. Liver function tests were normal. Amylase was slightly elevated but lipase was normal. Imaging from earlier this year showed a normal pancreas on CT scanning. Previous elevations of her pancreatic enzymes have essentially resolved. Followup will be in one year. 04/09/2024 Abnormal levels of other serum enzymes (ICD-10 - R74.8) Please do these blood tests to week before your appointment with Dr. Mcintosh. 05/18/2024 Elevated pancreatic enzyme (ICD-10 - R74.8) At this time, she is doing well. We reviewed her laboratory studies from earlier this month which were done because of some complaints of abdominal discomfort. She showed mild anemia with a hematocrit of 36.3. Liver function tests were normal. Amylase was slightly elevated but lipase was normal. Imaging from earlier this year showed a normal pancreas on CT scanning. Previous elevations of her pancreatic enzymes have essentially resolved. Followup will be in one year. Plan Of Treatment Pending Test Test Name Order Date LIVER PROFILE 11/08/2023 LIVER PROFILE 04/09/2024 LIVER PROFILE 01/02/2024 LIVER PROFILE 11/21/2023 AMYLASE 11/21/2023 AMYLASE 11/08/2023 AMYLASE 04/09/2024 AMYLASE 01/02/2024 LIPASE 01/02/2024 LIPASE 11/21/2023 LIPASE 11/08/2023 LIPASE 10/24/2023 LIPASE 04/09/2024 CBC w/o DIFF 04/09/2024 CBC w/o DIFF 01/02/2024 CBC w/o DIFF 11/08/2023 STOOL WBC 06/25/2014 STOOL WBC 10/24/2023 STOOL WBC 01/13/2014 OVA & PARASITES (O&P) 01/13/2014 OVA & PARASITES (O&P) 06/25/2014 OVA & PARASITES (O&P) 10/24/2023 PANCREATIC ELASTASE 10/24/2023 FECAL FAT QUAL 10/24/2023 CULTURE, STOOL 01/13/2014 CULTURE, STOOL 06/25/2014 US ABD 10/24/2023 GI PANEL 10/24/2023 Future Test Test Name Order Date COLONOSCOPY 01/30/2012 COLONOSCOPY 01/29/2018 Next Appt Details Provider Name:Fermín hood Jr, 05/19/2025 09:40:00 AM, [address] [place] [address], [address], [place], [address], Insurance Providers Payer Name Payer Address Payer Phone Subscriber Number Group Number Insured Name Patient Relationship to Insured Coverage Start Date Coverage End Date [place] [address] [place] [address] [id number] HITESH OLIVIER Self - patient is the insured MEDICAID OF [facility] [address] [place] [address] [id number] HITESH OLIVIER Self - patient is the insured Medical (General) History Medical History History ICD Code colonoscopy 04/29, normal inc luding sigmoid biopsies; followup due in 10 years. irritable bowel syndrome hypertension bipolar disorder Hypothyroidism HSV infection migraine headaches seizure disorder new stimulator Surgical History Surgery Date(Month/Year) Partial hysterectomy section Carpal tunnel surgery bunionectomy 03/03/2020 Sacral nerve stimulator, relocated to [facility] side 04/02 08/01 sacral nerve stimulator 06/04
--- OUTSIDE RECORDS SUMMARY | 2025-03-23 12:13 | XMS_ITS | Patient Health Record ---
Author Organization [facility] Address [address] [facility] [place] [address] Care Team Providers Care Adult Ministries Director Name Role Phone Lyric FELIX, Roni Primary Care Provider Katina Carmona Unavailable [phone] Allergies Allergen (clinical drug ingredient) Drug/Non Drug Allergy documented on EMR Reaction Allergy Type Onset Date Status meperidine Demerol Unknown Drug Allergy Active promethazine Phenergan Unknown Drug Allergy Acti ve metoclopramide Reglan Unknown Drug Allergy Ac tive Reason For Referral No Information Medications Medication SIG (Take, Route, Frequency, Duration) Notes Start Date End Date Status Metoprolol Tartrate 50 MG 1 tablet Orall y Once a day; Duration: 30 day(s) Active lamoTRIgine 25 MG Orally No t-Taking Medrol shauna 4mg as directed orally a s directed; Duration: 6 days 02/19/2025 Active Lisinopril 5 MG 1 tablet Orally Once a day; Duration: 30 day(s) Active Ammonium Lactate 12 % 1 application to affected area Externally to feet Twice a day; Duration: 30 days Not-Taking Levothyroxine Sodium 50 MCG 1 tablet on an empty stomach in the morning Orally Once a day; Duration: 30 day(s) Active Naltrexone HCl Not-T aking Work Note . . . Can return to wo rk 04/04/20 without restrictions 03/29/2020 Not-Taking levoFLOXacin 500 MG 1 tablet Orally Once a day; Duration: 10 day(s) 10/08/2022 Not-Taking Ibuprofen 800 MG 1 tablet Orally Thre e times a day; Duration: 30 day(s) Not-Taking Neurontin 300 MG 1 capsule Orally Onc e a day at night; Duration: 60 days 08/25/2024 Active Medrol shauna 4mg as directed orally a s directed; Duration: 6 days Active Bactrim DS 800-160 MG 1 tablet Orally ev tyesha 12 hrs; Duration: 10 day(s) 11/06/2017 Not-Taking busPIRone HCl 15 MG 1 tablet Orally Twic e a day Active Cephalexin 500 MG 1 tablet Orally Twic e a day; Duration: 7 days Not-Taking valACYclovir HCl 500 MG Orally Once a day Active Bactrim DS 800-160 MG 1 tablet Orally Tw ice a day; Duration: 7 days 02/24/2018 Not-Taking Simvastatin 20 MG 1 tablet in the even ing Orally Once a day; Duration: 30 day(s) Active Amitriptyline HCl 25 MG 1 tablet at bedt naman Orally bed time; Duration: 30 day(s) Not-Taking PROzac 60 mg 1 capsule in the morning Orally Once a day; Duration: 30 day(s) Active Bactrim DS 800-160 MG 1 tablet Orally ev tyesha 12 hrs; Duration: 5 days 01/07/2019 Not-Taking lamoTRIgine 200 MG Orally Once a day Not-Taking Ciclopirox Olamine 0.77% external Apply to effected areas twice a day; Duration: 30 days 07/18/2015 Not-Takin g Imitrex 100 MG 1 tablet as needed o ne time Orally Once a day Not-Takin g Physical Therapy . . . 2-3x/week; Duration: 3-4 weeks 07/15/2015 Not-Taking traMADol HCl PRN Not-Ty ing Work Note . . . Pt is excused fr om work due to painful foot condition on Saturday06/25/15 06/24/2015 Not-Taking Ibuprofen 600 MG 1 tablet with food o r milk as needed Orally Three times a day; Duration: as needed 11/08/2017 Active LaMICtal 250 mg 1 tablet Orally Once a day; Duration: 30 day(s) Not-Taking Bactrim DS 800-160 MG 1 tablet Orally ev tyesha 12 hrs; Duration: 7 days 01/03/2018 Not-Taking Doxycycline Hyclate 100 MG 1 tablet Orally every 12 hrs; Duration: 7 days 11/11/2017 Not-Taking PROzac 20 MG 1 capsule Orally Onc e a day Active Work Note-Appointment . . . Pt had a cydney eduled appointment today; Duration: . 10/02/2022 Not-Taking Keflex 500 MG 1 capsule Orally chad ry 12 hrs; Duration: 7 days 10/02/2022 Not-Taking Doxycycline Not-Taki ng Piroxicam 20 MG TAKE 1 CAPSULE BY [facility] EVERY DAY WITH FOOD *NOT COVERED USED A DISC CARD*; Duration: 30 Not-Taking Physical Therapy . . . 2-3x/week; Duration: 3-4 weeks 11/01/2023 Not-Taking Lidocaine 5 % 1 application to affected area as needed Externally Three times a day; Duration: 30 days 04/30/2013 Not-Taking Ciclopirox Olamine 0.77 % 1 application Externally Twice a day; Duration: 30 days Not-Taking Lidoderm 5 % 1 patch to intact sk in remove after 12 hours Externally Once a day; Duration: 30 days 02/23/2013 Not-Taking Immunizations Vaccine Route Administration Date Status Comme nts Influenza Unknown 04/12/2024 Administered COVID-19 Moderna Vaccine Unknown 01/17/2021 Administered First Dose: 12/20/2020 Social History Tobacco Use: Social History Observation Description Date Details (start date - stop date) Never Smoker NA - NA Tobacco use other than smoking: Question Answer Notes Are you an other tobacco user? No Tobacco Control (Standard) Question Answer Notes Tobacco use: Nonsmoker Additional Findings: Tobacco non-user Current no nsmoker AUDIT-C (Standard) Question Answer Notes Did you have a drink containing alcohol in the p ast year? No Points 0 Interpretation Negative Problems Problem Type SNOMED Code ICD Code Onset Dates Problem Status W/U Status Risk Notes Problem Idiopathic peripheral neuropathy (01509264) Idiopathic peripheral neuropathy (G60.9) Active confirmed Vital Signs Blood pressure diastolic 75 mm Hg 02/19/2025 Height 3yn47ra in 02/19/2025 Blood pressure systolic 118 mm Hg 02/19/2025 Weight 170 lbs 02/19/2025 BMI 34.33 kg/m2 02/19/2025 Encounters [facility]counter [facility] Date [facility] [address] [place] [address] 05/29/2024 Katina Maxwell Onychomycosis B35.1 ; Neuritis of right foot G57.91 ; Pain in right toe(s) M79.674 ; Pain in left toe(s) M79.675 and Neuritis of left foot G57.[address] [address] 08/25/2024 Katina Maxwell Neuritis of right foot G57.91 ; Achilles tendinitis of left lower extremity M76.62 ; Onychomycosis B35.1 ; Pain in right toe(s) M79.674 ; Pain in left toe(s) M79.675 ; Neuritis of left foot G57.92 ; Pain of left heel M79.672 ; Exostosis of left posterior calcaneus M77.32 and Short Achilles tendon (acquired), left ankle M67.[address] [address] 12/10/2024 Katina Maxwell Pain in right toe(s) M79.674 ; Onychomycosis B35.1 and Pain in left toe(s) M79.[address] [address] 02/19/2025 Katina Maxwell Achilles tendinitis of left lower extremity M76.62 ; Onychomycosis B35.1 ; Pain in right toe(s) M79.674 ; Pain in left toe(s) M79.675 ; Pain of left heel M79.672 ; Exostosis of left posterior calcaneus M77.32 ; Short Achilles tendon (acquired), left ankle M67.02 and Idiopathic peripheral neuropathy G60.[address] [address] 08/24/2024 Katina Maxwell [address] [address] 10/29/2024 Katina Maxwell [address] [address] 02/19/2025 Katina Maxwell Assessments Encounter Date Diagnosis (ICD Code) Assessment Notes Treatment Notes Treatment Clinical Notes Section Notes 05/29/2024 Onychomycosis (ICD-10 - B35.1) 05/29/2024 Neuritis of right foot (ICD-10 - G57.91) 08/25/2024 Achilles tendinitis of left lower extremity (ICD-10 - M76.62) Patient Educated with: HEEL CORD STRETCHES.pdf (HEEL CORD STRETCHES.pdf) Patient Educated with: RICE THERAPY.pdf (RICE THERAPY.pdf) 08/25/2024 Neuritis of right foot (ICD-10 - G57.91) 12/10/2024 Pain in right toe(s) (ICD-10 - M79.674) 02/19/2025 Achilles tendinitis of left lower extremity (ICD-10 - M76.62) 02/19/2025 Onychomycosis (ICD-10 - B35.1) 02/19/2025 Pain in right toe(s) (ICD-10 - M79.674) 12/10/2024 Onychomycosis (ICD-10 - B35.1) 08/25/2024 Onychomycosis (ICD-10 - B35.1) 05/29/2024 Pain in right toe(s) (ICD-10 - M79.674) 05/29/2024 Pain in left toe(s) (ICD-10 - M79.675) 08/25/2024 Pain in right toe(s) (ICD-10 - M79.674) 12/10/2024 Pain in left toe(s) (ICD-10 - M79.675) 02/19/2025 Pain in left toe(s) (ICD-10 - M79.675) 08/25/2024 Pain in left toe(s) (ICD-10 - M79.675) 02/19/2025 Pain of left heel (ICD-10 - M79.672) 05/29/2024 Neuritis of left foot (ICD-10 - G57.92) 08/25/2024 Neuritis of left foot (ICD-10 - G57.92) 02/19/2025 Exostosis of left posterior calcaneus (ICD-10 - M77.32) 02/19/2025 Short Achilles tendon (acquired), left ankle (ICD-10 - M67.02) 08/25/2024 Pain of left heel (ICD-10 - M79.672) 08/25/2024 Exostosis of left posterior calcaneus (ICD-10 - M77.32) 02/19/2025 Idiopathic peripheral neuropathy (ICD-10 - G60.9) 08/25/2024 Short Achilles tendon (acquired), left ankle (ICD-10 - M67.02) Plan Of Treatment Pending Test Test Name Order Date *Wound Culture 11/06/2017 *Wound Culture 11/08/2017 X ray : Foot, left 3V 10/21/2023 X ray : Foot, right 3V 03/08/2020 X ray : Foot, right 3V 10/13/2019 X ray : Foot, right 3V 02/23/2013 [id number] NAIL, 6 OR MORE 01/03/2018 [id number] NAIL, 6 OR MORE 03/07/2018 20531-Mjagyqjw Plate 02/17/2018 21701-Frxdqojv Plate 01/03/2018 27120-Mkcsbvui Plate 06/18/2014 69511- Debride <25 sq cm 11/15/2017 86395-WNICYGD SKIN/TISSUE 11/06/2017 95054 I&D ABSCESS- SIMPLE,SINGLE 015 19303 I&D ABSCESS- SIMPLE,SINGLE 015 21074 I&D ABSCESS- SIMPLE,SINGLE 018 13681 I&D ABSCESS- SIMPLE,SINGLE 014 15756 I&D ABSCESS- SIMPLE,SINGLE 018 04809 I&D ABSCESS- SIMPLE,SINGLE 023 85751, [id number]-JQARO/INJECT, JOINT/BURSA 0 10/13/2019 Next Appt Details Provider Name:Katina mccarthy, 05/11/2025 03:30:00 PM, [address] [facility], [place], [address], Insurance Providers Payer Name Payer Address Payer Phone Subscriber Number Group Number Insured Name Patient Relationship to Insured Coverage Start Date Coverage End Date Medicare [employer] [address] [place] [address] [phone] [id number] Mary Zarate Self - patient is the insured Medical (General) History Medical History History ICD Code anxiety chicken pox depression epilepsy headaches/migraines high blood pressure hypercholesterolemia thyroid disorder Nerve Stimulator covid-19 Surgical History Surgery Date(Month/Year) section 07/16/95 hysterectomy 10/2009 ablation 11/07/07 [place] Bunionectomy R 03/03/2020 First Phase of the neurostimulator 07/03 Nerve Stimulator Surgery 07/17/21 nerve stimulator replaced 05/11/2024 Hospitalization History Reason Date(Month/Year) ER- migraine 01/03
== END 2025-03-23 11:56 | disposition home or self-care (01) ==
LOC: HO.HSM 11:05
PROVIDERS: PCP Internal Medicine; Referring Provider Internal Medicine; Visit Provider Registered Nurse
DX: G43.909 Migraine, unspecified, not intractable, without status migrainosus (principal); G62.9 Polyneuropathy, unspecified
CPT/HCPCS: 99214

== ENCOUNTER 2025-03-26 08:01 | Outpatient (REF) | payer MEDICARE, MEDICAID, SELFPAY ==
--- OUTSIDE RECORDS SUMMARY | 2025-03-26 08:03 | XMS_ITS | Patient Health Record ---
Author Organization [facility] Address [address] [place] [address] Care Team Providers Care Supervisor Shaving And Splitting Name Role Phone Roni Gunter Primary Care Provider Fermín Monreal Jr Unavailable [phone] Allergies Allergen (clinical drug ingredient) Drug/Non Drug Allergy documented on EMR Reaction Allergy Type Onset Date Status promethazine Phenergan Unknown Drug Allergy Acti ve meperidine Demerol Unknown Drug Allergy Active Results Component Value Reference Range Notes Complete Blood Count Auto Di ff Reviewed date:05/14/2024 09:40:03 AM Interpretation: Performing Lab:[facility], [address] [place] [id number] Notes/Report: White Blood Count 8.5 4.8-10.8 X10*3/uL [...] Panel Reviewed date:05/14/2024 09:39:57 AM Interpretation: Performing Lab:[address] [phone] Notes/Report: Bilirubin Total 0.3 0.0-1.0 mg/dL Bilirubin Direct 0.1 0.0-0.5 mg/dL Aspartate Amino Transferase 13 5-31 U/L Alanine Aminotransferase 12 0-31 U/L Total Protein 7.3 6.5-8.0 g/dL Albumin Level 4.2 3.5-5.0 g/dL Alkaline Phosphatase 99 39-117 U/L Amylase Reviewed date:05/14/2024 09:39:52 AM Interpretation: Performing Lab:[address] [address] Notes/Report: Amylase 107 28-100 U/L Lipase Reviewed date:05/14/2024 09:39:45 AM Interpretation: Performing Lab:[address] [address] Notes/Report: Lipase 54 8-78 U/L Reason For [...] Problem Status W/U Status Risk Notes Problem 403843946 Colon cancer screening (Z12.11) Active confirmed Problem 07248342 Rectal bleeding (K62.5) Active confirmed Problem 329691594 Bloating (R14.0) Active confirmed Problem 807017825 Irritable bowel syndrome with diarrhea (K58.0) Active confirmed Problem 002482079 Abnormal levels of other serum enzymes (R74.8) Active confirmed Problem 40736709 Diarrhea, unspecified type (R19.7) Active confirmed Problem 56897825 Irritable bowel syndrome with both constipation and diarrhea (K58.2) Active confirmed Problem 49553071 Incontinence of feces, unspecified fecal incontinence type (R15.9) Active confirmed Problem 893390827 RUQ pain (R10.11) Active confirmed Problem 272304091 Elevated pancreatic enzyme (R74.8) Active confirmed Problem 329692278 Abnormal blood chemistry (R79.9) Active confirmed Vital Signs Temperature 97.5 degrees Fahrenheit 05/18/2024 Blood pressure diastolic 00 mm Hg 05/18/2024 Height 59 in 05/18/2024 Blood pressure systolic 000 mm Hg 05/18/2024 Weight 170 lbs 05/18/2024 BMI 34.33 kg/m2 05/18/2024 Encounters Encounter Location Date Provider Diagnosis [facility] [address] [place] [phone] 05/18/2024 Fermín Mcintosh Jr Irritable bowel syndrome with both constipation and diarrhea K58.2 ; Colon cancer screening Z12.11 and Elevated pancreatic enzyme R74.8 [facility] [address] [place] [address] 04/09/2024 Fermín Mcintosh Jr Abnormal levels of other serum enzymes R74.8 [facility] [address] [place] [address] 05/14/2024 Fermín Mcintosh Jr Assessments Encounter Date [...] COLONOSCOPY 01/29/2018 Next Appt Details Provider Name:Fermín Finnegan Gerhard hood Jr, 05/19/2025 09:40:00 AM, [address], [address], [place], [address], Insurance Providers Payer Name Payer Address Payer Phone Subscriber Number Group Number Insured Name Patient Relationship to Insured Coverage Start Date Coverage End Date [place] [address] [place] [address] [id number] HITESH OLIVIER Self - patient is the insured [facility] [address] [place] [address] [id number] HITESH OLIVIER Self - patient is the insured Medical (General) History Medical History History ICD Code colonoscopy 04/29, normal inc luding sigmoid biopsies; followup due in 10 years. irritable bowel syndrome hypertension bipolar disorder Hypothyroidism HSV infection migraine headaches seizure disorder new stimulator Surgical History Surgery Date(Month/Year) Partial hysterectomy section Carpal tunnel surgery bunionectomy 03/03/2020 Sacral nerve stimulator, relocated to le ft side 04/02 08/01 sacral nerve stimulator 06/04
--- OUTSIDE RECORDS SUMMARY | 2025-03-26 08:03 | XMS_ITS | Patient Health Record ---
Author Organization [facility] Address [address] [facility] [place] [address] Care Team Providers Care Loadmaster Name Role Phone Lyric FELIX, Roni Primary Care Provider Katina Carmona Unavailable [phone] Allergies Allergen (clinical drug ingredient) Drug/Non Drug [...] Piroxicam 20 MG TAKE 1 CAPSULE BY [facility] EVERY DAY WITH FOOD *NOT COVERED USED [...] Status Risk Notes Problem Idiopathic peripheral neuropathy (91988359) Idiopathic peripheral neuropathy (G60.9) Active confirmed Vital Signs Blood pressure diastolic 75 mm Hg 02/19/2025 Height 3ys51ki in 02/19/2025 Blood pressure systolic 118 mm Hg 02/19/2025 Weight 170 lbs 02/19/2025 BMI 34.33 kg/m2 02/19/2025 Encounters Encounter [facility] Date [facility] [address] [place] [address] [facility]/29/2024 Katina Maxwell Onychomycosis B35.1 ; Neuritis of right foot G57.91 ; Pain in right toe(s) M79.674 ; Pain in left toe(s) M79.675 and Neuritis of left foot G57.[address] [address] 08/25/2024 Katina Maxwell Neuritis of right foot G57.91 ; Achilles tendinitis of left lower extremity M76.62 ; Onychomycosis B35.1 ; Pain in right toe(s) M79.674 ; Pain in left toe(s) M79.675 ; Neuritis of left foot G57.92 ; Pain of left heel M79.672 ; Exostosis of left posterior calcaneus M77.32 and Short Achilles tendon (acquired), left ankle M67.[address] [address] 12/10/2024 Katina Maxwell Pain in right toe(s) M79.674 ; Onychomycosis B35.1 and Pain in left toe(s) M79.[address] [address] 02/19/2025 Katina Maxwell Achilles tendinitis of left lower extremity M76.62 ; Onychomycosis B35.1 ; Pain in right toe(s) M79.674 ; Pain in left toe(s) M79.675 ; Pain of left heel M79.672 ; Exostosis of left posterior calcaneus M77.32 ; Short Achilles tendon (acquired), left ankle M67.02 and Idiopathic peripheral neuropathy G60.[address] [address] 08/24/2024 Katina Maxwell [address] [address] 10/29/2024 Katina Maxwell [address] [address] 02/19/2025 Katina Maxwell Assessments Encounter Date Diagnosis [...] X ray : Foot, right 3V 02/23/2013 06335-GNIGUBJ NAIL, 6 OR MORE 01/03/2018 00937-EIOCXTE NAIL, 6 OR MORE 03/07/2018 14674-Jsekmsyb Plate 02/17/2018 70187-Tnfztohd Plate 01/03/2018 89359-Ewvashgh Plate 06/18/2014 38944- Debride <25 sq cm 11/15/2017 39223-SDUOXDC SKIN/TISSUE 11/06/2017 23676 I&D ABSCESS- SIMPLE,SINGLE 015 63206 I&D ABSCESS- SIMPLE,SINGLE 015 59437 I&D ABSCESS- SIMPLE,SINGLE 018 71601 I&D ABSCESS- SIMPLE,SINGLE 014 02647 I&D ABSCESS- SIMPLE,SINGLE 018 77374 I&D ABSCESS- SIMPLE,SINGLE 023 94214, B8837-NGNPE/INJECT, JOINT/BURSA 0 10/13/2019 Next Appt Details Provider Name:Katina mccarthy, 05/11/2025 03:30:00 PM, [address] [facility], [place], [address], Insurance Providers Payer Name Payer Address Payer Phone Subscriber Number Group Number Insured Name Patient Relationship to Insured Coverage Start Date Coverage End Date Medicare National Govt Svcs Inc [address] [place] [address] [id number] Mary Zarate Self - patient is the [...]
[2025-03-31 03:18] LABS: Arsenic, 24H Urine <10 mcg/L (<=80); Cadmium, 24H Urine <0.5 mcg/L (<=5.0); Lead, 24H Urine <10 mcg/L (<80); Mercury, 24H Urine <4 mcg/L (<=20)
== END 2025-03-26 08:02 | disposition home or self-care (01) ==
LOC: HO.LNP 08:01
PROVIDERS: Visit Provider Registered Nurse
DX: G62.9 Polyneuropathy, unspecified (principal)
CPT/HCPCS: 82175; 82300; 83655; 83825

== ENCOUNTER 2025-04-13 11:48 | Outpatient (REF) | payer MEDICARE, MEDICAID, SELFPAY ==
[2025-04-13 12:59] LABS: MANUAL DIFF FLAG NO
[2025-04-13 13:15] LABS: Hematocrit 38.8 % (37.0-47.0); Hemoglobin 12.7 g/dl (12.0-16.0); Imm Gran Abs Auto 0.03 X10*3/uL (0.00-0.03); Imm Gran Pct Auto 0.3 % (0.0-0.4); Lymphocytes Absolute Auto 2.2 X10*3/uL (1.2-4.9); Mean Corpuscular HGB Conc 32.7 g/dl (31.0-35.0); Mean Corpuscular Hemoglobin 30.8 pg (27.0-33.0); Mean Corpuscular Volume 94.2 fL (80.0-98.0); NRBC Abs Auto 0.000 X10*3/uL (0.0-0.012); NRBC Pct Auto 0.0 /100WBC (0.0-0.2); Platelet Count 330 X10*3/uL (160-400); Red Blood Count 4.12 X10*6/uL (4.20-5.50); White Blood Count 10.3 X10*3/uL (4.8-10.8)
[2025-04-13 13:21] LABS: Hemoglobin A1C 126.1512 umol/L; Total Hemoglobin (HGBA1C) 3286.2255 umol/L
[2025-04-13 13:32] LABS: Alanine Aminotransferase 28 U/L (0-31); Albumin Level 4.6 g/dL (3.5-5.0); Alkaline Phosphatase 107 U/L (39-117); Anion Gap 13 (12-20); Aspartate Amino Transferase 23 U/L (5-31); Blood Urea Nitrogen 19 mg/dL (9-16); Calcium 9.3 mg/dL (8.4-10.2); Carbon Dioxide 25 mmol/L (22-29); Chloride 107 mmol/L (96-108); Cholesterol 236 mg/dL (<200); Estimated Glomerular Filt Rate 53; HDL Cholesterol 42 mg/dL (>40); Potassium 4.4 mmol/L (3.3-5.1); Sodium 141 mmol/L (135-145); Total Protein 7.7 g/dL (6.5-8.0); Triglycerides 175 mg/dL (<150)
[2025-04-13 14:22] LABS: Folate 8.7 ng/mL (> or = 4.0); Vitamin B12 1054 pg/mL (200-900)
== END 2025-04-13 11:49 | disposition home or self-care (01) ==
LOC: HO.HMGCLDS 11:48
PROVIDERS: PCP Internal Medicine; Visit Provider Physician Assistant
DX: E11.42 Type 2 diabetes mellitus with diabetic polyneuropathy (principal); E78.01 Familial hypercholesterolemia
CPT/HCPCS: 36415; 80053; 80061; 82607; 82746; 83036; 85025

== ENCOUNTER 2025-04-13 19:41 | Emergency (ER) | payer MEDICARE, MEDICAID, SELFPAY ==
--- OUTSIDE RECORDS SUMMARY | 2024-11-03 11:15 | XMS_ITS ---
Author Organization [facility] Address [address] [place] [phone] Care Team Providers Care Supervisor Type Disk Quality Control Name Role Phone Lyric FELIX, Roni Primary Care Provider Katina Carmona Unavailable [phone] Encounters Encounter Location Date Provider Diagnosis [address] [address] 11/03/2024 Katina Maxwell Plan Of Treatment Next Appt Details Provider Name:Katina mccarthy, 05/11/2025 03:30:00 PM, [address] [place] [address], [phone], Progress Notes * Kori OLIVIERcy ADOB: 0 (54 yo F)Acc No.[id number]:11/03/2024 Progress Note Patient: Mary MCNEIL Provider: Vicki Maxwell DPM :1970 A ge:54 Y S ex:Female Date:11/03/2024 Address:[address] [place] [address], Jamal grey [id number] Pcp:Roni Gunter MD Subjective: * Chief Complaints: * * [...] 11/03/2024 Generated for [facility]/Estrellita/eTransmitting on: 0 04/13/2025 08:25 PM EDT
--- NOTE | ~2025-04-13 | CT_ITS ---
CLINICAL HISTORY: RLL pain, appendicitis versus severe colitis CT abdomen and pelvis with contrast Comparison: CT - CT ABDOMEN PELVIS W IV CON - 04/13/25 22:07 EDT Findings: The lung bases are clear. Small ovoid focus of fat stranding in the left paramidline sigmoid epiploic fat (series 3, image 68). No bowel wall thickening or inflammatory changes. No small bowel obstruction. Normal appendix. No findings of diverticulitis. No intraperitoneal free fluid or free air. Normal gallbladder, liver, spleen, pancreas, and adrenal glands. Normal kidneys, ureters, and urinary bladder. Hysterectomy changes. Bones intact. IMPRESSION: Small area of suspected epiploic appendagitis adjacent to the proximal sigmoid colon. No findings of appendicitis or colitis. This document has been electronically signed by: Scott Cox MD on 04/13/2025 23:14:13
[2025-04-13 19:51] VITALS: BP 144/63; PULSE 79; RESP 16; TEMP 36.9; O2SAT 96; BMI 37.4
--- NOTE | 2025-04-13 19:52 | ED_ITS ---
HPI - General Adult General Chief complaint: Abdominal Pain Stated complaint: nausea, diarrhea Time Seen by Provider: 04/13/25 21:33 Source: patient Mode of arrival: ambulatory Limitations: no limitations History of Present Illness ED Provider: DR. Alba HPI narrative: 54-year-old female came in for evaluation of abdominal pain, nonbloody watery diarrhea, nausea x1 day. Patient describes the pain as a lower abdominal pain with no radiation, pain is associated with nausea, no vomiting, nonbloody watery diarrhea x1 day, no recent use of antibiotic last use of antibiotic was more than a year ago, no recent travel, no sick contacts, no exposure to bad food in the last week, no dysuria, no frequency urination, no vaginal discharge, no vaginal bleed brain patient had history of hysterectomy, +passing gas. Related Data Home Medications ?Medication ?Instructions ?Recorded ?Confirmed buspirone 15 mg tablet 15 mg PO BID 10/28/20 fluoxetine 20 mg capsule 20 mg PO DAILY 10/28/20 fluoxetine 40 mg capsule 40 mg PO QAM 10/28/20 ibuprofen 800 mg tablet 800 mg PO TID 10/28/20 levothyroxine 50 mcg tablet 50 mcg PO DAILY 10/28/20 lisinopril 5 mg tablet 5 mg PO DAILY 10/28/20 metoprolol tartrate 50 mg tablet 50 mg PO DAILY naltrexone 50 mg tablet 50 mg PO BEDTIME 10/28/20 simvastatin 20 mg tablet 20 mg PO DAILY 10/28/20 valacyclovir 500 mg tablet 500 mg PO DAILY 10/28/20 gabapentin 400 mg capsule 400 mg PO BEDTIME 03/23/25 0 03/23/25 Previous Rx's ?Medication ?Instructions ?Recorded ondansetron 4 mg disintegrating 4 mg PO Q8H PRN nausea and 11/02/22 tablet vomiting #10 tabs loperamide 2 mg capsule 2 mg PO Q6H PRN loose stool #30 11/06/22 (Anti-Diarrheal (loperamide)) caps lidocaine 4 % topical patch 1 patch topical DAILY PRN pain #10 10/23/23 ea benzonatate 100 mg capsule 100 mg PO TID PRN cough #20 caps 12/05/23 fluticasone propionate 50 1 spray intranasal BID #16 g emmanuel 12/05/23 mcg/actuation nasal spray,suspension (Flonase Allergy Relief) vvxszvrxgt-hdhlcedaodrpx-exqusfbo 1 tab PO Q6H PRN hea dache 30 days 03/23/25 50 mg-325 mg-40 mg tablet #20 tabs pregabalin 100 mg capsule 100 mg PO BID 30 days #60 ca ps 03/23/25 nitrofurantoin 100 mg PO BID #14 caps 04/14 monohydrate/macrocrystals 100 mg capsule (Macrobid) Allergies Allergy/AdvReac Type Severity Reaction Status Date / Time promethazine (From PHENERGAN) Allergy Severe ALTERED Verified 04/13/25 19:54 MENTAL STATUS meperidine (Demerol) Allergy Unknown nausea Verified 04/13/25 19:54 Review of Systems 2 Review of Systems: All other systems are reviewed and are negative Constitutional: Reports as per HPI and Reports no additional constitutional complaints Eyes: Reports as per HPI and Reports no additional eye complaints Reports system reviewed and no additional complaints, except as documented Cardiovascular: Reports as per HPI and Reports no additional cardiovascular complaints Respiratory: Reports as per HPI and Reports no additional respiratory complaints Gastrointestinal: Reports as per HPI and Reports no additional gastrointestinal complaints Genitourinary: Reports no additional female genitourinary complaints Musculoskeletal: Reports no additional musculoskeletal complaints Skin/Breast: Reports system reviewed and no additional complaints, except as docu Psychiatric: Reports no additional psychiatric complaints Endocrine: Reports no additional endocrine complaints Hematologic/Lymphatic: Reports no additional hematologic/lymphatic complaints Allergic/Immunologic: Reports no additional allergic/immunologic complaints Reports system reviewed and no additional complaints, except as documented and Reports Abnormal speech present [facility] Past Medical History Medical History Carpal tunnel syndrome of right wrist Bipolar disorder Insomnia Migraine Depression Bipolar 1 disorder High cholesterol Hypertension Surgical History History of bunionectomy of right great toe History of carpal tunnel surgery of right wrist History of carpal tunnel surgery of left wrist History of hysterectomy History of section Family History Family History Mother No problems noted. Father No problems noted. 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 Blood pressure elevated. Heart rate normal. Respiratory rate normal. Temperature normal. Oxygen saturation normal. Appearance: Alert. Oriented X3. No acute distress. Head: Normal external exam. Normocephalic. Atraumatic. No Sprague signs noted. No raccoon eyes noted Eyes: PERRLA. EOMI. Conjunctiva and sclera normal. Eyelids normal. ENT: TM's Normal. Pharynx normal. Uvula midline. Moist mucous membranes. No trismus noted. No drooling noted. No muffled voice noted. Neck: Normal inspection. Neck supple. FROM. No adenopathy. Thyroid Normal. No meningeal signs. No neck mass noted. CVS: Normal heart rate and rhythm. Heart sound normal. No murmurs noted. Pulses normal throughout. Respiratory: No respiratory distress. Painless inspiration. Breath sounds normal. No wheezes/rales/rhonchi noted. Chest nontender. No accessory muscle usage noted or decreased air movement noted. Abdomen: Soft and nontender. Bowel sounds normal in all 4 quadrants. No distention noted. No organomegaly noted. No visible injury noted. Back: No CVA tenderness. Full range of motion noted. Skin: Skin warm and dry. Normal skin color. Normal skin turgor. No rashes/lesions/lacerations noted. Extremities: No lower extremity edema. Extremities exhibit normal range of motion. Extremities nontender. Neuro: Oriented X 3. Cranial nerve exam: II-XII are grossly intact No motor deficit. No sensory deficit. Reflexes normal. Course Course Course Narrative: This is a Rapid Medical Examination (RME) performed by Melo Silva PA-C in triage. Full HPI, ROS, assessment and treatment plan per primary provider in the Main ED. Hx: 54 yo F here for eval of nausea, lower abd pain, diarrhea, sneezing, coughing, hot/cold flashes x24 hours. unable to tolerate po. no urinary sx. her boss is ill w/ similar sx - no known diagnosis. Plan: labs, viral swabs Reevaluation(s) Reevaluation #1: CT abdomen pelvis shows epiploic appendagitis otherwise no acute intra-abdominal pathology. Patient feels better, labs are unremarkable. UTI start on Macrobid and drink plenty of fluids. Slight elevation of lipase with no abdominal pain or tenderness, no vomiting. Time: 00:00 Medications Administered Discontinued Medications Generic Name Dose Route Start Last Admin Trade Name Freq PRN Reason Stop Dose Admin Al Hydroxide/Mg Hydroxide 30 ml 04/13/25 21:38 04/13/25 22:43 Magnesium Hydrox/Alum Hydrox 30 Ml Oral.Susp PO 04/13/25 21:39 30 ml ONCE ONE Administration Famotidine 20 mg 04/13/25 21:38 04/13/25 22:44 Famotidine/Pf 20 Mg/2 Ml Vial IVPUSH 04/13/25 21:39 20 mg ONCE ONE Administration Iohexol 85 ml 04/13/25 22:25 04/13/25 22:25 Iohexol 350 Mg/Ml 100 Ml Infus..Btl IV 04/13/25 22:26 85 ml ONCE ONE Administration Loperamide HCl 2 mg 04/13/25 21:38 04/13/25 22:44 Loperamide Hcl 2 Mg Capsule PO 04/13/25 21:39 2 mg ONCE ONE Administration Medical Decision Making Differential Diagnosis Differential Diagnoses: The differential diagnosis associated with the presentation includes (Acute appendicitis, colitis, diverticulitis, pancreatitis, electrolyte derangement, severe anemia, UTI.) Admission/Observation Consideration of admission/observation: Escalation of care including admission/observation considered Lab Data MDM Lab Attestation statement: I reviewed the patient's lab results. 04/13/25 20:19 04/13/25 20:19 Labs: Lab Results 04/13/25 04/13/25 Range/Units 20:19 23:59 WBC 10.4 (4.8-10.8) X10*3/uL RBC 3.93 L (4.20-5.50) X10*6/uL Hgb 12.3 (12.0-16.0) g/dl Hct 36.5 L (37.0-47.0) % MCV 92.9 (80.0-98.0) fL MCH 31.3 (27.0-33.0) pg MCHC 33.7 (31.0-35.0) g/dl RDW 13.9 (11.0-16.0) % Plt Count 301 (160-400) X10*3/uL MPV 9.9 (9.4-12.3) fL Immature Gran % (Auto) 0.2 (0.0-0.4) % Neut % (Auto) 63.9 (45-73) % Lymph % (Auto) 23.6 (20-40) % Fountain % (Auto) 8.4 (2-11) % Eos % (Auto) 3.5 (0-4) % Baso % (Auto) 0.4 (0-2) % Lymph # (Auto) 2.5 (1.2-4.9) X10*3/uL Fountain # (Auto) 0.9 (0.1-1.2) X10*3/uL Eos # (Auto) 0.4 (0.0-0.4) X10*3/uL Baso # (Auto) 0.0 (0.0-0.2) X10*3/uL Abs Immat Gran (auto) 0.02 (0.00-0.03) X10*3/uL Absolute Neuts (auto) 6.7 (2.0-8.3) x10*3/uL Absolute Nucleated RBC 0.000 (0.0-0.012) X10*3/uL Nucleated RBC % (auto) 0.0 (0.0-0.2) /100WBC Sodium 140 (135-145) mmol/L Potassium 4.0 (3.3-5.1) mmol/L Chloride 107 (96-108) mmol/L Carbon Dioxide 24 (22-29) mmol/L Anion Gap 13 (12-20) BUN 18 H (9-16) mg/dL Creatinine 1.14 (0.5-1.4) mg/dL Estim Creat Clear Calc 50.2 Estimated GFR 49 Random Glucose 134 H (60-115) mg/dL Calcium 9.1 (8.4-10.2) mg/dL Magnesium 1.9 (1.6-2.6) mg/dL Total Bilirubin 0.3 (0.0-1.0) mg/dL AST 25 (5-31) U/L ALT 30 (0-31) U/L Alkaline Phosphatase 103 (39-117) U/L Total Protein 7.5 (6.5-8.0) g/dL Albumin 4.5 (3.5-5.0) g/dL Lipase 114 H (8-78) U/L Urine Color Yellow Urine Appearance Clear Urine pH 5.5 (5.0-9.0) Ur Specific [place] >= 1.030 H (1.005-1.025) Urine Protein Negative (Neg-Trace) mg/dL Urine Glucose (UA) Negative (Negative) mg/dL Urine Ketones Negative (Negative) mg/dL Urine Blood Negative (Negative) Urine Nitrite Negative (Negative) Ur Leukocyte Esterase Moderate (2+) H (Negative) Urine RBC 0-2 (0-2) /HPF Urine WBC 11-20 H (0-5) /HPF Ur Squamous Epith Cells 6-10 (0-2) /HPF Urine Bacteria 2+ (None Seen) Hyaline Casts 0-2 (0-2) /LPF COVID-19 (CHEMA) Negative (Negative) COVID-19 Clin Com See Note Influenza Type A (CECILE) Negative (Negative) Influenza Type B (CECILE) Negative (Negative) Influenza A & B Note See Note Independent Interpretation I performed an independent interpretation of an: CT Scan (Abdomen pelvis: No acute intra-abdominal pathology.) Radiology Impression Discussion of test interpretation with radiology: I have reviewed the radiologist's reading. Discharge Plan Discharge Clinical Impression: Abdominal pain, Diarrhea, Epiploic appendagitis, UTI (urinary tract infection) Patient Disposition: Home, Self-Care Instructions: Abdominal Pain (ED) Additional Instructions: Drink plenty of fluids Prescriptions: New nitrofurantoin monohyd/m-cryst [Macrobid] 100 mg capsule 100 mg PO BID Qty: 14 0RF Rx Instructions: must administer with a meal/food No Action lidocaine 4 % adhesive patch,medicated 1 patch topical DAILY PRN (Reason: pain) Qty: 10 0RF Rx Instructions: may leave on for up to 12 hrs ondansetron 4 mg tablet,disintegrating 4 mg PO Q8H PRN (Reason: nausea and vomiting) Qty: 10 0RF loperamide [Anti-Diarrheal (loperamide)] 2 mg capsule 2 mg PO Q6H PRN (Reason: loose stool) Qty: 30 0RF benzonatate 100 mg capsule 100 mg PO TID PRN (Reason: cough) Qty: 20 0RF fluticasone propionate [Flonase Allergy Relief] 50 mcg/actuation spray,suspension 1 spray intranasal BID Qty: 16 0RF Rx Instructions: administer into each nostril buspirone 15 mg tablet 15 mg PO BID gabapentin 400 mg capsule 400 mg PO BEDTIME pregabalin 100 mg capsule 100 mg PO BID 30 Days Qty: 60 2RF ljcwzttill-avbwhdljyqscy-rcuz 50-325-40 mg tablet 1 tab PO Q6H PRN (Reason: headache) 30 Days Qty: 20 5RF Referrals: Roni Gunter MD [Primary Care Provider, Internal Medicine] Print Language: Yoruba
[2025-04-13 20:24] LABS: Hematocrit 36.5 % (37.0-47.0); Hemoglobin 12.3 g/dl (12.0-16.0); Imm Gran Abs Auto 0.02 X10*3/uL (0.00-0.03); Imm Gran Pct Auto 0.2 % (0.0-0.4); Lymphocytes Absolute Auto 2.5 X10*3/uL (1.2-4.9); MANUAL DIFF FLAG NO; Mean Corpuscular HGB Conc 33.7 g/dl (31.0-35.0); Mean Corpuscular Hemoglobin 31.3 pg (27.0-33.0); Mean Corpuscular Volume 92.9 fL (80.0-98.0); NRBC Abs Auto 0.000 X10*3/uL (0.0-0.012); NRBC Pct Auto 0.0 /100WBC (0.0-0.2); Platelet Count 301 X10*3/uL (160-400); Red Blood Count 3.93 X10*6/uL (4.20-5.50); White Blood Count 10.4 X10*3/uL (4.8-10.8)
--- OUTSIDE RECORDS SUMMARY | 2025-04-13 20:25 | XMS_ITS | Patient Health Record ---
Author Organization [facility] Address [address] [facility] [place] [address] Care Team Providers Care Hay Stacker Operator Name Role Phone Lyric FELIX, Roni Primary Care Provider Katina Carmona Unavailable [phone] Allergies Allergen (clinical drug ingredient) Drug/Non Drug [...] Piroxicam 20 MG TAKE 1 CAPSULE BY [facility] EVERY DAY WITH FOOD *NOT COVERED [...] Status Risk Notes Problem Idiopathic peripheral neuropathy (19311435) Idiopathic peripheral neuropathy (G60.9) Active confirmed Vital Signs Blood pressure diastolic 75 mm Hg 02/19/2025 Height 5ma54yj in 02/19/2025 Blood pressure systolic 118 mm Hg 02/19/2025 Weight 170 lbs 02/19/2025 BMI 34.33 kg/m2 02/19/2025 Encounters Encounter Location Date [facility] [address] [place] [address] [facility]/29/2024 Katina Maxwell Onychomycosis B35.1 ; Neuritis of right foot G57.91 ; Pain in right toe(s) M79.674 ; Pain in left toe(s) M79.675 and Neuritis of left foot G57.[address] [address] 08/25/2024 Katina Maxwell Neuritis of right foot G57.91 ; Achilles tendinitis of left lower extremity M76.62 ; Onychomycosis B35.1 ; Pain in right toe(s) M79.674 ; Pain in left toe(s) M79.675 ; Neuritis of left foot G57.92 ; Pain of left heel M79.672 ; Exostosis of left posterior calcaneus M77.32 and Short Achilles tendon (acquired), left ankle M67.[address] [address] 12/10/2024 Katina Maxwell Pain in right toe(s) M79.674 ; Onychomycosis B35.1 and Pain in left toe(s) M79.[address] [address] 02/19/2025 Katina Maxwell Achilles tendinitis of left lower extremity M76.62 ; Onychomycosis B35.1 ; Pain in right toe(s) M79.674 ; Pain in left toe(s) M79.675 ; Pain of left heel M79.672 ; Exostosis of left posterior calcaneus M77.32 ; Short Achilles tendon (acquired), left ankle M67.02 and Idiopathic peripheral neuropathy G60.[address] [address] 08/24/2024 Katina Maxwell [address] [address] 10/29/2024 Katina Maxwell [address] [address] 02/19/2025 Katina Maxwell Assessments Encounter Date Diagnosis [...] X ray : Foot, right 3V 02/23/2013 75524-EBXQDKV NAIL, 6 OR MORE 01/03/2018 40273-KTOKNIR NAIL, 6 OR MORE 03/07/2018 25197-Nfdhgbbj Plate 02/17/2018 27672-Bqagqvna Plate 01/03/2018 66687-Dgeuaasy Plate 06/18/2014 33314- Debride <25 sq cm 11/15/2017 32194-ABIGXYV SKIN/TISSUE 11/06/2017 17821 I&D ABSCESS- SIMPLE,SINGLE 015 99674 I&D ABSCESS- SIMPLE,SINGLE 015 13625 I&D ABSCESS- SIMPLE,SINGLE 018 52097 I&D ABSCESS- SIMPLE,SINGLE 014 48895 I&D ABSCESS- SIMPLE,SINGLE 018 94781 I&D ABSCESS- SIMPLE,SINGLE 023 88902, M4488-ULVQM/INJECT, JOINT/BURSA 0 10/13/2019 Next Appt Details Provider Name:Katina mccarthy, 05/11/2025 03:30:00 PM, [address] [facility], [place], [address], Insurance Providers Payer Name Payer Address Payer Phone Subscriber Number Group Number Insured Name Patient Relationship to Insured Coverage Start Date Coverage End Date Medicare National Govt Svcs Inc [address] [place] [address] [id number] Mary Zarate Self - patient is the [...]
--- OUTSIDE RECORDS SUMMARY | 2025-04-13 20:25 | XMS_ITS | Patient Health Record ---
Author Organization [facility] Address [address] [place] [address] Care Team Providers Care Marketing Strategist Name Role Phone Roni Gunter Primary Care Provider Fermín Monreal Jr Unavailable [phone] Allergies Allergen (clinical drug ingredient) Drug/Non Drug Allergy documented on EMR Reaction Allergy Type Onset Date Status promethazine Phenergan Unknown Drug Allergy Acti ve meperidine Demerol Unknown Drug Allergy Active Results Component Value Reference Range Notes Complete Blood Count Auto Di ff Reviewed date:05/14/2024 09:40:03 AM Interpretation: Performing Lab:[facility], [address] [place] [id number] Notes/Report: White Blood Count 8.5 4.8-10.8 X10*3/uL [...] Panel Reviewed date:05/14/2024 09:39:57 AM Interpretation: Performing Lab:[address] [address] Notes/Report: Bilirubin Total 0.3 0.0-1.0 mg/dL Bilirubin Direct 0.1 0.0-0.5 mg/dL Aspartate Amino Transferase 13 5-31 U/L Alanine Aminotransferase 12 0-31 U/L Total Protein 7.3 6.5-8.0 g/dL Albumin Level 4.2 3.5-5.0 g/dL Alkaline Phosphatase 99 39-117 U/L Amylase Reviewed date:05/14/2024 09:39:52 AM Interpretation: Performing Lab:[address] [address] Notes/Report: Amylase 107 28-100 U/L Lipase Reviewed date:05/14/2024 09:39:45 AM Interpretation: Performing Lab:[address] [address] Notes/Report: Lipase 54 8-78 U/L Reason For [...] a day for 30 days 11/14/2022 Active Imitrex 100 MG 1 tablet as [...] mg tablets Orally Once in evening Active Loperamide A-D 2 MG 1 tablet as needed Orally Four times a day for 30 days Active valACYclovir HCl 500 MG 1 tablet [...] Problem Status W/U Status Risk Notes Problem 548171650 Colon cancer screening (Z12.11) Active confirmed Problem 06961810 Rectal bleeding (K62.5) Active confirmed Problem 040698223 Bloating (R14.0) Active confirmed Problem 316034259 Irritable bowel syndrome with diarrhea (K58.0) Active confirmed Problem 316535129 Abnormal levels of other serum enzymes (R74.8) Active confirmed Problem 10859567 Diarrhea, unspecified type (R19.7) Active confirmed Problem 00631721 Irritable bowel syndrome with both constipation and diarrhea (K58.2) Active confirmed Problem 03777888 Incontinence of feces, unspecified fecal incontinence type (R15.9) Active confirmed Problem 646317773 RUQ pain (R10.11) Active confirmed Problem 598180510 Elevated pancreatic enzyme (R74.8) Active confirmed Problem 276414365 Abnormal blood chemistry (R79.9) Active confirmed Vital Signs Temperature 97.5 degrees Fahrenheit 05/18/2024 Blood pressure diastolic 00 mm Hg 05/18/2024 Height 59 in 05/18/2024 Blood pressure systolic 000 mm Hg 05/18/2024 Weight 170 lbs 05/18/2024 BMI 34.33 kg/m2 05/18/2024 Encounters Encounter Location Date Provider Diagnosis [facility] [address] [place] [phone] 05/18/2024 Fermín Mcintosh Jr Irritable bowel syndrome with both constipation and diarrhea K58.2 ; Colon cancer screening Z12.11 and Elevated pancreatic enzyme R74.8 [facility] [address] [place] [phone] 04/13/2025 Fermín Mcintosh Jr Irritable bowel syndrome with both constipation and diarrhea K58.2 [facility] [address] [place] [phone] 05/14/2024 Fermín Mcintosh Jr Assessments Encounter Date [...] resolved. Followup will be in one year. 04/13/2025 Irritable bowel syndrome with both constipation and diarrhea (ICD-10 - K58.2) 05/18/2024 Elevated pancreatic enzyme (ICD-10 - R74.8) [...] STOOL WBC 01/13/2014 OVA & PARASITES (O&P) 10/24/2023 OVA & PARASITES (O&P) 01/13/2014 OVA & PARASITES (O&P) 06/25/2014 PANCREATIC ELASTASE 10/24/2023 FECAL FAT QUAL 10/24/2023 CULTURE, STOOL 01/13/2014 CULTURE, STOOL 06/25/2014 US ABD 10/24/2023 GI PANEL 10/24/2023 Future Test Test Name Order Date COLONOSCOPY 01/30/2012 COLONOSCOPY 01/29/2018 Next Appt Details Provider Name:Fermín Svian hood Jr, 05/19/2025 09:40:00 AM, [address] [facility], [address], [place], [address], Insurance Providers Payer Name Payer Address Payer Phone Subscriber Number Group Number Insured Name Patient Relationship to Insured Coverage Start Date Coverage End Date [place]ARE OF [place] [address] [place] [address] [id number] HITESH OLIVIER Self - patient is the insured MEDICAID OF [facility] [address] [place] [address] [id number] HITESH OLIVIER Self - patient is the [...]
[2025-04-13 20:37] LABS: Alanine Aminotransferase 30 U/L (0-31); Albumin Level 4.5 g/dL (3.5-5.0); Alkaline Phosphatase 103 U/L (39-117); Anion Gap 13 (12-20); Aspartate Amino Transferase 25 U/L (5-31); Blood Urea Nitrogen 18 mg/dL (9-16); Calcium 9.1 mg/dL (8.4-10.2); Carbon Dioxide 24 mmol/L (22-29); Chloride 107 mmol/L (96-108); Creatinine Clr Calc Pharmacy 50.2; Estimated Glomerular Filt Rate 49; Lipase 114 U/L (8-78); Magnesium 1.9 mg/dL (1.6-2.6); Potassium 4.0 mmol/L (3.3-5.1); Sodium 140 mmol/L (135-145); Total Protein 7.5 g/dL (6.5-8.0)
[2025-04-13 20:41] LABS: COVID-19 Test Negative (Negative); IDNOW Serial# 55D5AD1C; IDNOW Serial# 58CA691E; Influenza B2 Negative (Negative)
[2025-04-13] MEDS: iohexoL 350 MG/ML 100 ML INFUS..BTL 85 ML IV (22:25)
[2025-04-13] MEDS: Magnesium Hydrox/Alum Hydrox 30 ML ORAL.SUSP PO (22:43)
[2025-04-13 23:05] VITALS: BP 120/57; PULSE 67; RESP 16; TEMP 36.9; O2SAT 97
[2025-04-14 00:04] LABS: Appearance Urine Clear; Glucose Urine UA Negative (Negative); PH 5.5 (5.0-9.0); Specific Gravity - Urine >= 1.030 (1.005-1.025); UMIC TRIGGER UACC YES
[2025-04-14 00:10] LABS: UACC Culture Trigger YES
[2025-04-14 00:49] VITALS: BP 120/57; PULSE 67; RESP 16; TEMP 36.9; O2SAT 97
== END 2025-04-14 00:49 | disposition home or self-care (01) ==
PROVIDERS: Physician Assistant Medical; Emergency Provider Emergency Medicine; PCP Internal Medicine
DX: N39.0 Urinary tract infection, site not specified (principal); R10.31 Right lower quadrant pain; R19.7 Diarrhea, unspecified; K63.89 Other specified diseases of intestine; R11.0 Nausea; Z79.899 Other long term (current) drug therapy; Z03.818 Encounter for observation for suspected exposure to other biological agents ruled out
CPT/HCPCS: 74177; 80053; 81001; 83690; 83735; 85025; 87086; 87502; 87635; 96374; 99284; 99285; J1308; Q9967

== ENCOUNTER → 2025-04-13 21:38 | Outpatient (BNV) | payer MEDICARE, MEDICAID, SELFPAY | PROVIDERS: Emergency Provider Emergency Medicine; PCP Internal Medicine; Visit Provider Radiology Diagnostic Radiology | DX: K65.9 Peritonitis, unspecified (principal) | CPT/HCPCS: 74177 ==

== ENCOUNTER 2025-04-24 18:33 | Emergency (ER) | payer MEDICARE, MEDICAID, SELFPAY ==
--- OUTSIDE RECORDS SUMMARY | 2024-11-03 11:15 | XMS_ITS ---
Author Organization [facility] Address [address] [place] [id number] Care Team Providers Care Certified Registered Locksmith Name Role Phone Lyric FELIX, Roni Primary Care Provider Katina Carmona Unavailable [phone] Encounters Encounter Location Date Provider Diagnosis [address] [address] 11/03/2024 Katina Maxwell Plan Of Treatment Next Appt Details Provider Name:Katina mccarthy, 05/11/2025 03:30:00 PM, [address] [place] [address], [phone], Progress Notes * Kori OLIVIERcy ADOB: 0 (54 yo F)Acc No.[id number]:11/03/2024 Progress Note Patient: Mary MCNEIL Provider: Vicki Maxwell DPM :1970 A ge:54 Y S ex:Female Date:11/03/2024 Address:[address] [place] [address], Jamal grey [id number] Pcp:Roni Guntre MD Subjective: * Chief Complaints: * * Medical History: Objective: * Vitals: Assessment: Plan: * Treatment: * Images: * The named appointment provid er may or may not be the originator of this progress note, and it is not deemed complete until electronically signed by the appointment provider. Sign off status: Pending * Provider: Vicki Maxwell DPM Date: 11/03/2024 Generated for [facility]/Estrellita/eTransmitting on: 0 04/24/2025 07:28 PM EDT
--- NOTE | ~2025-04-24 | XR_ITS ---
CLINICAL HISTORY: pain, injury Exam: AP, lateral, and oblique views of the right foot. Comparison: None provided. Findings: Alignment of the Lisfranc articulation is anatomic. There is irregularity along the medial aspect of the 1st metatarsal head and neck suggesting prior bunionectomy. Vbql-ir-hvjaydse degenerative change of the 1st metatarsophalangeal joint. No acute fracture. Mild scattered degenerative change throughout the midfoot and interphalangeal joints. There spurring of both the posterior and plantar calcaneus. Impression: Chronic changes as above. This document has been electronically signed by: Damian Adamson MD on 04/24/2025 19:49:32
[2025-04-24 18:37] VITALS: BP 121/65; PULSE 69; RESP 18; TEMP 37; O2SAT 94; BMI 36.5
--- NOTE | 2025-04-24 18:37 | ED_ITS ---
HPI - General Adult General Chief complaint: Extremity Injury, Lower Stated complaint: right big toe inj Time Seen by Provider: 04/24/25 20:04 Source: patient Mode of arrival: ambulatory Limitations: no limitations History of Present Illness ED Provider: Emily Pearl PA-C HPI narrative: Patient is a 54 year old assigned female at with a history of migraine, bipolar disorder, HTN, bunions presenting to the emergency department today with a right great toe injury. Patient states that she hit her right great toe / toe nail on a wooden post / sign earlier today and has had pain ever since. Patient states that she follows with podiatry and has had several of her toe nails removed, without incident. Patient denies any other symptoms at this time. Related Data Home Medications ?Medication ?Instructions ?Recorded ?Confirmed buspirone 15 mg tablet 15 mg PO BID 10/28/20 fluoxetine 20 mg capsule 20 mg PO DAILY 10/28/20 fluoxetine 40 mg capsule 40 mg PO QAM 10/28/20 ibuprofen 800 mg tablet 800 mg PO TID 10/28/20 levothyroxine 50 mcg tablet 50 mcg PO DAILY 10/28/20 lisinopril 5 mg tablet 5 mg PO DAILY 10/28/20 metoprolol tartrate 50 mg tablet 50 mg PO DAILY naltrexone 50 mg tablet 50 mg PO BEDTIME 10/28/20 simvastatin 20 mg tablet 20 mg PO DAILY 10/28/20 valacyclovir 500 mg tablet 500 mg PO DAILY 10/28/20 gabapentin 400 mg capsule 400 mg PO BEDTIME 03/23/25 0 03/23/25 Previous Rx's ?Medication ?Instructions ?Recorded ondansetron 4 mg disintegrating 4 mg PO Q8H PRN nausea and 11/02/22 tablet vomiting #10 tabs loperamide 2 mg capsule 2 mg PO Q6H PRN loose stool #30 11/06/22 (Anti-Diarrheal (loperamide)) caps lidocaine 4 % topical patch 1 patch topical DAILY PRN pain #10 10/23/23 ea benzonatate 100 mg capsule 100 mg PO TID PRN cough #20 caps 12/05/23 fluticasone propionate 50 1 spray intranasal BID #16 g emmanuel 12/05/23 mcg/actuation nasal spray,suspension (Flonase Allergy Relief) psbgmgexxh-pypbawjyiyhnj-ubzfatwh 1 tab PO Q6H PRN hea dache 30 days 03/23/25 50 mg-325 mg-40 mg tablet #20 tabs pregabalin 100 mg capsule 100 mg PO BID 30 days #60 ca ps 03/23/25 nitrofurantoin 100 mg PO BID #14 caps 04/14 monohydrate/macrocrystals 100 mg capsule (Macrobid) amoxicillin 875 mg-potassium 1 tab PO BID 5 days #10 t abs 04/24/25 clavulanate 125 mg tablet Allergies Allergy/AdvReac Type Severity Reaction Status Date / Time promethazine (From PHENERGAN) Allergy Severe ALTERED Verified 04/13/25 19:54 MENTAL STATUS meperidine (Demerol) Allergy Unknown nausea Verified 04/13/25 19:54 metoclopramide (From Reglan) Allergy Chest Pain Verified 04/24/25 18:39 Review of Systems Constitutional: Constitutional: Reports as per HPI Eyes: Eyes: Reports as per HPI ENT: Reports as per HPI Cardiovascular: Cardiovascular: Reports as per HPI Respiratory: Respiratory: Reports as per HPI Gastrointestinal: Gastrointestinal: Reports as per HPI Genitourinary: Genitourinary: Reports as per HPI Musculoskeletal: Musculoskeletal: Reports as per HPI Integumentary/Breasts: Skin/Breast: Reports as per HPI Neurologic: Reports as per HPI Psychiatric: Psychiatric: Reports as per HPI Endocrine: Endocrine: Reports as per HPI Hematologic/Lymphatic: Hematologic/Lymphatic: Reports as per HPI Allergic/Immunologic: Allergic/Immunologic: Reports as per HPI PMF Past Medical History Attestation statement: The following information was validated with the patient. Source: old records reviewed and nursing notes reviewed Medical History Carpal tunnel syndrome of right wrist Bipolar disorder Insomnia Migraine Depression Bipolar 1 disorder High cholesterol Hypertension Surgical History History of bunionectomy of right great toe History of carpal tunnel surgery of right wrist History of carpal tunnel surgery of left wrist History of hysterectomy History of section Family History Family History Mother No problems noted. Father No problems noted. 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 Physical Exam ED Vital Signs: Vital Signs - 24 hr 04/24/25 18:37 04/24/25 20:29 04/24/25 20:31 Temperature 98.6 F 99.0 F 99.0 F Pulse Rate 69 65 65 Respiratory Rate 18 16 16 Blood Pressure 121/65 118/70 118/70 Pulse Oximetry 94 98 98 Oxygen Delivery Method Room Air Room Air Room Air BMI result Body Mass Index 36.5 Const General: cooperative, no acute distress, alert and awake Nutritional Appearance: well nourished Orientation/consciousness: patient oriented x3 HENMT Head: Yes normal to inspection and Yes atraumatic Ears: hearing grossly normal bilaterally and external ears normal General nose exam: Normal external nose present, no nasal discharge noted and no epistaxis Face and sinus: Yes normal facial exam, No abrasion and No laceration Mouth: Normal oral and palatal mucosa present, no drooling and no muffled voice Eyes General: appearance normal, both eyes and all related structures Periorbital: periorbital findings normal Eyelids: Yes eyelids normal Conjunctivae: conjunctivae normal Pupils: Equal, round and reactive pupils present EOM: EOMs intact bilaterally Neck Neck: Yes normal visual inspection and Yes full ROM Resp Effort & Inspection: normal respiratory effort and able to speak in complete sentences Neuro General: patient oriented x3, moves all extremities and CN's II-XI intact bilaterally Cranial nerves: Yes Equal, round and reactive pupils present Cognition (Neuro): normal cognition Extrem Other: partial avulsion of the right great toe nail - bottom portion of nail well secured to nail bed General: Yes full ROM and Yes capillary refill normal Psych Appearance: grossly normal Mental Status: mental status grossly normal Affect: normal affect Attitude: cooperative Thought process: Normal thought process present Thought content: Normal thought content present Insight: Good insight present (Psych) Course Course Course Narrative: Rapid medical examination performed in triage by Emily Pearl PA-C. Patient is a 54 year old assigned female at presenting to the emergency department with right great toe pain. Detailed physical exam and review of systems are deferred to the pit tanner. Imaging ordered. Patient placed back in the waiting room pending room availability and results. Medications Administered Discontinued Medications Generic Name Dose Route Start Last Admin Trade Name Laura PRN Reason Stop Dose Admin Lidocaine HCl 15 ml 04/24/25 20:04 04/24/25 20:10 Lidocaine Hcl 1 % Mpf 5 Ml Vial SUBCUT 04/24/25 20:05 15 ml ONCE ONE Administration Procedures Procedure Narrative Procedure Narrative: The distal most portion of right great toe was removed - without incident. Exposed nail bed was dressed with Xeroform medicated gauze, then a non-stick applied on top, and wrapped. Patient's PMS was intact prior to and after nail removal and dressing application. Nerve Block Nerve Block 1: Time out performed: Yes Local Anesthetic: lidocaine 1% Amount of anesthesia used (mL): 10 Side: right Nerve Blocks: digital (great toe) Procedure Successful: Yes Patient Tolerated Procedure: well Complications: none Medical Decision Making Medical Decision Making MDM Narrative: Patient is a 54 year old assigned female at with a history of migraine, bipolar disorder, HTN, bunions presenting to the emergency department today with a right great toe injury. Patient's physical exam was as noted in the physical exam portion of this note. The base of the patient's right great toe nail was well adhered to the nail bed. The distal most portion of the toe nail was looser than the proximal portion but still well attached. Patient's right foot x-ray showed no acute process. I explained my physical exam findings as well as all test results to the patient. I answered all questions asked by the patient. The patient requested I remove the right great toe nail. I had an extensive conversation with the patient explaining that the nail is still well adhered to the nail bed and that unnecessary nail removal can lead to complications in nail bed healing, the re-growth or lack there of involving that nail, and possible infection. The patient was adamant that she has had nails removed by her trial management associate several times and that she knows removing this nail is what will alleviate her pain the best and is what she wants done, regardless of risk. I explained to the patient that even though she has previously had nails removed without issue - there is still a risk that removing the nail at this time, will have the above mentioned risks. Patient verbalized that she understands the risks and would like it done anyway. Patient's right great toe was digitally blocked with 1% lidocaine, without incident. I removed the most distal portion of the right great toe nail, as requested by the patient. Patient tolerated the procedure well. PMS was intact prior to and after digital blood and partial nail removal. Patient's exposed nail bed was dressed with Xeroform medication gauze, then a non-stick dressing, and wrapped with web roll gauze wrap. Patient's PMS was intact prior to and after dressing placement. Given the injury occurred from striking a wooden sign and the patient had me remove a portion of her nail - I have prescribed the patient a prophylactic dose of antibiotic. I stressed the importance of the patient taking her medication as directed (either prescribed or as the over the counter packaging recommends). I stressed the importance of the patient following up with her primary care provider and her trial management associate. I stressed the importance of the patient returning to the emergency department immediately if her symptoms were to worsen or if she were to develop any dizziness, shortness of breath, difficulty breathing, chest pain, blurry vision, loss of vision, nausea, vomiting, abdominal pain, fever, chills, back pain, or any other complaints. Patient verbalized agreement and understanding with this treatment plan and discharge. Differential Diagnosis Differential Diagnoses: The differential diagnosis associated with the presentation includes Partial nail avulsion Foot injury Foot fracture Admission/Observation Consideration of admission/observation: Escalation of care including admission/observation considered Patient would have been admitted to the hospital had her work up had any findings where hospital admission was appropriate and her clinical presentation warranted hospital admission. Independent Interpretation I performed an independent interpretation of an: Plain X-Ray Interpretation: My interpretation is in agreement with the radiologist's impression of this imaging study. Reason for Exam: pain, injury CLINICAL HISTORY: pain, injury Exam: AP, lateral, and oblique views of the right foot. Comparison: None provided. Findings: Alignment of the Lisfranc articulation is anatomic. There is irregularity along the medial aspect of the 1st metatarsal head and neck suggesting prior bunionectomy. Snih-on-vivesyqw degenerative change of the 1st metatarsophalangeal joint. No acute fracture. Mild scattered degenerative change throughout the midfoot and interphalangeal joints. There spurring of both the posterior and plantar calcaneus. Impression: Chronic changes as above. This document has been electronically signed by: Damian Adamson MD on 04/24/2025 19:49:32 Dictated By: Damian Adamson MD Signed By: Electronically signed by Damian Adamson MD 04/24/251950 Radiology Impression Discussion of test interpretation with radiology: I have reviewed the radiologist's reading. Prescription Management I considered prescription management with: Antibiotic (given patient's mechanism of injury, prescribed a prophylactic antibiotic. ) Discharge Plan Discharge Clinical Impression: Nail avulsion of toe Patient Disposition: Home, Self-Care Instructions: Nail Avulsion (ED) Additional Instructions: Follow up with your trial management associate next week. Remember what we discussed - this toenail may not grow back the way it origi julio c was or ever again. That is the risk you agreed to when asking me to remove it. Take your prophylactic antibiotic as prescribed. Avoid public bodies of water such as: pools, oceans, lakes, [place], etc. IF you are prescribed home medications and/or you are taking over the counter medications at home - it is very important you continue to do so as prescribed / directed unless told otherwise. Follow up with your primary care provider. Return to the emergency department immediately if your symptoms worsen or if you develop any numbness, tingling, dizziness, shortness of breath, difficulty breathing, chest pain, blurry vision, loss of vision, nausea, vomiting, abdominal pain, fever, chills, back pain, or any other complaints. Please see the information below about our Patient Portal. If you are not yet enrolled in the [facility] Patient Portal, you will receive an enrollment email invitation following your visit to any [facility] care setting. You may also self-enroll in the Patient Portal by visiting our website: [email or web address] The following information is required to access the Patient Portal: - Your [facility] Medical Record Number - Your personal home email address (must match what is in your electronic medical record, Registration staff can assist with this) - Name - Date of Capabilities of the Patient Portal: - Message some providers - View upcoming appointments - Access your health summary, medical history, and visit history - View current conditions and allergies - View procedure and lab results - View your medications, including guidelines, side effects, and precautions - Complete pre-appointment questionnaires requested by your provider - Ready summary reports of your office visits and procedures To access the Patient Portal Mobile [employer], follow these directions: - Search [employer] in the [employer] Store or [employer] Store - Download the [employer] - Search for [facility] - Enter your login/password Prescriptions: New amoxicillin-pot clavulanate 875-125 mg tablet 1 tab PO BID 5 Days Qty: 10 0RF No Action lidocaine 4 % adhesive patch,medicated 1 patch topical DAILY PRN (Reason: pain) Qty: 10 0RF Rx Instructions: may leave on for up to 12 hrs ondansetron 4 mg tablet,disintegrating 4 mg PO Q8H PRN (Reason: nausea and vomiting) Qty: 10 0RF loperamide [Anti-Diarrheal (loperamide)] 2 mg capsule 2 mg PO Q6H PRN (Reason: loose stool) Qty: 30 0RF benzonatate 100 mg capsule 100 mg PO TID PRN (Reason: cough) Qty: 20 0RF fluticasone propionate [Flonase Allergy Relief] 50 mcg/actuation spray,suspension 1 spray intranasal BID Qty: 16 0RF Rx Instructions: administer into each nostril nitrofurantoin monohyd/m-cryst [Macrobid] 100 mg capsule 100 mg PO BID Qty: 14 0RF Rx Instructions: must administer with a meal/food buspirone 15 mg tablet 15 mg PO BID gabapentin 400 mg capsule 400 mg PO BEDTIME pregabalin 100 mg capsule 100 mg PO BID 30 Days Qty: 60 2RF ivulnzvxyn-aonijejyumplx-tbxz 50-325-40 mg tablet 1 tab PO Q6H PRN (Reason: headache) 30 Days Qty: 20 5RF Referrals: Roni Gunter MD [Primary Care Provider, Internal Medicine] Interventions: ED Discharge Assessment Last Done: 04/24/25 20:31 Discharge Date/Time: 04/24/25 20:32 Print Language: Lithuanian
--- OUTSIDE RECORDS SUMMARY | 2025-04-24 19:28 | XMS_ITS | Patient Health Record ---
[facility] Organization [facility] Address [address] [facility] [place] [address] Care Team Providers Care Service Dog Trainer Name Role Phone Lyric FELIX, Roni Primary Care Provider Katina Carmona Unavailable [phone] Allergies Allergen (clinical drug ingredient) Drug/Non Drug [...] Piroxicam 20 MG TAKE [address] [facility] EVERY DAY WITH FOOD *NOT COVERED USED [...] Status Risk Notes Problem Idiopathic peripheral neuropathy (69118498) Idiopathic peripheral neuropathy (G60.9) Active confirmed Vital Signs Blood pressure diastolic 75 mm Hg 02/19/2025 Height 8ge24di in 02/19/2025 Blood pressure systolic 118 mm Hg 02/19/2025 Weight 170 lbs 02/19/2025 BMI 34.33 kg/m2 02/19/2025 Encounters Encounter [facility] Date [facility] [address] [place] [address] 05/29/2024 Katina Maxwell Onychomycosis B35.1 ; Neuritis of right foot G57.91 ; Pain in right toe(s) M79.674 ; Pain in left toe(s) M79.675 and Neuritis of left foot G57.[address] [address] 08/25/2024 Katina Maxwell Neuritis of right foot G57.91 ; Achilles tendinitis of left lower extremity M76.62 ; Onychomycosis B35.1 ; Pain in right toe(s) M79.674 ; Pain in left toe(s) M79.675 ; Neuritis of left foot G57.92 ; Pain of left heel M79.672 ; Exostosis of left posterior calcaneus M77.32 and Short Achilles tendon (acquired), left ankle M67.[address] [address] 12/10/2024 Katina Maxwell Pain in right toe(s) M79.674 ; Onychomycosis B35.1 and Pain in left toe(s) M79.[address] [address] 02/19/2025 Katina Maxwell Achilles tendinitis of left lower extremity M76.62 ; Onychomycosis B35.1 ; Pain in right toe(s) M79.674 ; Pain in left toe(s) M79.675 ; Pain of left heel M79.672 ; Exostosis of left posterior calcaneus M77.32 ; Short Achilles tendon (acquired), left ankle M67.02 and Idiopathic peripheral neuropathy G60.[address] [address] 08/24/2024 Katina Maxwell [address] [address] 10/29/2024 Katina Maxwell [address] [address] 02/19/2025 Katina Maxwell Assessments Encounter Date Diagnosis (ICD Code) Assessment Notes Treatment Notes Treatment Clinical Notes Section Notes 08/25/2024 Achilles tendinitis of left lower extremity (ICD-10 - M76.62) Patient Educated with: HEEL CORD STRETCHES.pdf (HEEL CORD STRETCHES.pdf) Patient Educated with: RICE THERAPY.pdf (RICE THERAPY.pdf) 08/25/2024 Neuritis of right foot (ICD-10 - G57.91) 05/29/2024 Onychomycosis (ICD-10 - B35.1) 05/29/2024 Neuritis of right foot (ICD-10 - G57.91) 02/19/2025 Achilles tendinitis of left lower extremity (ICD-10 - M76.62) 02/19/2025 Onychomycosis (ICD-10 - B35.1) 12/10/2024 Pain in right toe(s) (ICD-10 - M79.674) 12/10/2024 Onychomycosis (ICD-10 - B35.1) 02/19/2025 Pain in right toe(s) (ICD-10 - M79.674) 05/29/2024 Pain in right toe(s) (ICD-10 - M79.674) 08/25/2024 Onychomycosis (ICD-10 - B35.1) 08/25/2024 Pain in right toe(s) (ICD-10 - M79.674) 05/29/2024 Pain in left toe(s) (ICD-10 - M79.675) 02/19/2025 Pain in left toe(s) (ICD-10 - M79.675) 12/10/2024 Pain in left toe(s) (ICD-10 - M79.675) 02/19/2025 Pain of left heel (ICD-10 - M79.672) 05/29/2024 Neuritis of left foot (ICD-10 - G57.92) 08/25/2024 Pain in left toe(s) (ICD-10 - M79.675) 08/25/2024 Neuritis of left foot (ICD-10 - [...] Test Test Name Order Date *Wound Culture 11/08/2017 *Wound Culture 11/06/2017 X ray : Foot, left 3V 10/21/2023 X ray : Foot, right 3V 10/13/2019 X ray : Foot, right 3V 03/08/2020 X ray : Foot, right 3V 02/23/2013 [id number] NAIL, 6 OR MORE 01/03/2018 00806-[id number] NAIL, 6 OR MORE 03/07/2018 11311-Dsfmffoh Plate 01/03/2018 49625-Xeebjdvq Plate 06/18/2014 83549-Efmhjoty Plate 02/17/2018 26392- Debride <25 sq cm 11/15/2017 44247-RWDPEDM SKIN/TISSUE 11/06/2017 66546 I&D ABSCESS- SIMPLE,SINGLE 018 68668 I&D ABSCESS- SIMPLE,SINGLE 018 70605 I&D ABSCESS- SIMPLE,SINGLE 014 98793 I&D ABSCESS- SIMPLE,SINGLE 015 55517 I&D ABSCESS- SIMPLE,SINGLE 015 02907 I&D ABSCESS- SIMPLE,SINGLE 023 39895, J8015-CSPOY/INJECT, JOINT/BURSA 0 10/13/2019 Next Appt Details Provider Name:Katina mccarthy, 05/11/2025 03:30:00 PM, [address] [facility], [place], [address], Insurance Providers Payer Name Payer Address Payer Phone Subscriber Number Group Number Insured Name Patient Relationship to Insured Coverage Start Date Coverage End Date Medicare National [employer] [address] [place] [address] [phone] [id number] Mary Zarate Self - patient is the [...]
--- OUTSIDE RECORDS SUMMARY | 2025-04-24 19:28 | XMS_ITS | Patient Health Record ---
Author Organization [facility] Address [address] [place] [address] Care Team Providers Care Tax Manager Public Name Role Phone Roni Gunter Primary Care Provider Fermín Monreal Jr Unavailable [phone] Allergies Allergen (clinical drug ingredient) Drug/Non Drug Allergy documented on EMR Reaction Allergy Type Onset Date Status promethazine Phenergan Unknown Drug Allergy Acti ve meperidine Demerol Unknown Drug Allergy Active Results Component Value Reference Range Notes Complete Blood Count Auto Di ff Reviewed date:05/14/2024 09:40:03 AM Interpretation: Performing Lab:[facility], [address] [place] [address] Notes/Report: White Blood Count 8.5 4.8-10.8 X10*3/uL [...] Panel Reviewed date:05/14/2024 09:39:57 AM Interpretation: Performing Lab:[address] [address] Notes/Report: Bilirubin Total 0.3 0.0-1.0 mg/dL Bilirubin Direct 0.1 0.0-0.5 mg/dL Aspartate Amino Transferase 13 5-31 U/L Alanine Aminotransferase 12 0-31 U/L Total Protein 7.3 6.5-8.0 g/dL Albumin Level 4.2 3.5-5.0 g/dL Alkaline Phosphatase 99 39-117 U/L Amylase Reviewed date:05/14/2024 09:39:52 AM Interpretation: Performing Lab:[address] [address] Notes/Report: Amylase 107 28-100 U/L Lipase Reviewed date:05/14/2024 09:39:45 AM Interpretation: Performing Lab:[address] [address] Notes/Report: Lipase 54 8-78 U/L Reason For [...] Problem Status W/U Status Risk Notes Problem 164513778 Colon cancer screening (Z12.11) Active confirmed Problem 04827796 Rectal bleeding (K62.5) Active confirmed Problem 855405420 Bloating (R14.0) Active confirmed Problem 668703118 Irritable bowel syndrome with diarrhea (K58.0) Active confirmed Problem 035240500 Abnormal levels of other serum enzymes (R74.8) Active confirmed Problem 33069637 Diarrhea, unspecified type (R19.7) Active confirmed Problem 51777636 Irritable bowel syndrome with both constipation and diarrhea (K58.2) Active confirmed Problem 19073318 Incontinence of feces, unspecified fecal incontinence type (R15.9) Active confirmed Problem 995590029 RUQ pain (R10.11) Active confirmed Problem 758987067 Elevated pancreatic enzyme (R74.8) Active confirmed Problem 788374117 Abnormal blood chemistry (R79.9) Active confirmed Vital Signs Temperature 97.5 degrees Fahrenheit 05/18/2024 Blood pressure diastolic 00 mm Hg 05/18/2024 Height 59 in 05/18/2024 Blood pressure systolic 000 mm Hg 05/18/2024 Weight 170 lbs 05/18/2024 BMI 34.33 kg/m2 05/18/2024 Encounters Encounter Location Date Provider Diagnosis [facility] [address] [place] [address] 05/18/2024 Fermín Mcintosh Jr Irritable bowel syndrome with both constipation and diarrhea K58.2 ; Colon cancer screening Z12.11 and Elevated pancreatic enzyme R74.8 [facility] [address] [place] [address] 05/14/2024 Fermín Mcintosh Jr [facility] [address] [place] [address] 04/13/2025 Fermín Mcintosh Jr Irritable bowel syndrome with both constipation and diarrhea K58.2 Assessments Encounter Date Diagnosis (ICD Code) Assessment [...] COLONOSCOPY 01/29/2018 Next Appt Details Provider Name:Fermín Sivan hood Jr, 05/19/2025 09:40:00 AM, [address] [facility], [address], [place], [address], Insurance Providers Payer Name Payer Address Payer Phone Subscriber Number Group Number Insured Name Patient Relationship to Insured Coverage Start Date Coverage End Date MEDICARE OF [place] [address] [place] [address] [id number] HITESH OLIVIER Self - patient is the insured MEDICAID OF [facility] [address] [place] [address] [id number] HITESH OLIVIER Self - patient is the [...]
[2025-04-24] MEDS: Lidocaine HCl 1 % MPF 5 ML VIAL 15 ML SUBCUT (20:10)
[2025-04-24 20:29] VITALS: BP 118/70; PULSE 65; RESP 16; TEMP 37.2; O2SAT 98
[2025-04-24 20:31] VITALS: BP 118/70; PULSE 65; RESP 16; TEMP 37.2; O2SAT 98
== END 2025-04-24 20:32 | disposition home or self-care (01) ==
PROVIDERS: Emergency Provider Emergency Medicine; PCP Internal Medicine
DX: S91.201A Unspecified open wound of right great toe with damage to nail, initial encounter (principal); W22.09XA Striking against other stationary object, initial encounter; Y93.9 Activity, unspecified; Y92.9 Unspecified place or not applicable; Y99.9 Unspecified external cause status
CPT/HCPCS: 64450; 73630; 99284; J2003

== ENCOUNTER → 2025-04-24 18:38 | Outpatient (BNV) | payer MEDICARE, MEDICAID, SELFPAY | PROVIDERS: PCP Internal Medicine; Visit Provider Radiology Diagnostic Radiology | DX: M19.071 Primary osteoarthritis, right ankle and foot (principal) | CPT/HCPCS: 73630 ==

== ENCOUNTER 2025-05-25 11:45 | Outpatient (AMB) | payer MEDICARE, MEDICAID, SELFPAY ==
--- OUTSIDE RECORDS SUMMARY | 2024-11-03 11:15 | XMS_ITS ---
Author Organization [facility] Address [address] [place] [address] Care Team Providers Care Cinder Crane Operator Name Role Phone Lyric FELIX, Roni Primary Care Provider Katina Carmona Unavailable [phone] Encounters Encounter Location Date Provider Diagnosis [facility] [address] [place] [address] 11/03/2024 Katina Maxwell Plan Of Treatment Next Appt Details Provider Name:Katina mccarthy, 08/02/2025 03:30:00 PM, [address] [place], [phone], Progress Notes * Kori OLIVIERcy ADOB: 0 (54 yo F)Acc No.[id number]:11/03/2024 Progress Note Patient: Mary MCNEIL Provider: Vicki Maxwell DPM :1970 A ge:54 Y S ex:Female Date:11/03/2024 Address:[address] [place] [address] [address] [id number] Pcp:Roni Gunter MD Subjective: * Chief Complaints: * * Medical History: Objective: * Vitals: Assessment: Plan: * Treatment: * Images: * The named appointment provid er may or may not be the originator of this progress note, and it is not deemed complete until electronically signed by the appointment provider. Sign off status: Pending * Provider: Vicki Maxwell DPM Date: 0 11/03/2024 Generated for [facility]/Estrellita/Kleverransmitting on: 1 02:25 PM EDT
--- OUTSIDE RECORDS SUMMARY | 2025-05-19 05:40 | XMS_ITS ---
Author Organization [facility] Address [address] [place] [address] Care Team Providers Care Senior Cost Estimator Name Role Phone Roni Gunter Primary Care Provider Fermín Monreal Jr Unavailable Allergies Allergen (clinical drug ingredient) Drug/Non Drug Allergy documented on EMR Reaction Allergy Type Onset Date Status metoclopramide Reglan Unknown Drug Allergy Ac tive promethazine Phenergan Unknown Drug Allergy Acti ve meperidine Demerol Unknown Drug Allergy Active REASON FOR VISIT Patient presents today for IBS Medications Medication SIG (Take, Route, Frequency, Duration) Notes Start Date End Date Status Tylenol 325 MG 1 tablet as needed Orally every 4 hrs/prn PRN Active busPIRone HCl 15 MG 1 tablet Orally Twic e a day Active Melatonin PRN Active FLUoxetine HCl 20 MG Orally Active Dicyclomine HCl 20 MG 1 tablet Orally 2- 4 times a day; Duration: 30 days 11/14/2022 Active Metoprolol & Diet Manage Prod 50mg 1 tablet Orally once a day Active Simvastatin 20 MG 1 tablet in the even ing Orally once in evening Active lamoTRIgine 200mg 1 tablet with additi on 2- 25 mg tablets Orally Once in evening Active Imitrex 100 MG 1 tablet as needed o ne time Orally Once a day Active Fluoxetine 40mg 1 tablet with 20 mg tablet orally once a day Active Gabapentin 300 MG 1 capsule Orally Onc e a day Active Ibuprofen 800 MG 1 tablet with food o r milk as needed Orally every 8 hrs Active valACYclovir HCl 500 MG 1 tablet Orally every 24 hrs Active Lisinopril 5 MG 1 tablet Orally Once a day Active Levothyroxine Sodium 50 MCG 1 tablet Orally Once a day Active Fioricet prn Not-Ty ing Estradiol 0.075 Not- Taking PROzac Not-Taking Colyte with Flavor Packs 240 GM As directed Orally Over the specified time.; Duration: 1 day(s) 05/19/2025 Active Anusol-HC 25 MG 1 suppository Rectal Twice a day; Duration: 14 day(s) 02/04/2015 Not-Taking Loperamide A-D 2 MG 1 tablet as needed Orally Four times a day; Duration: 30 days Active Social History Alcohol Screen Question Answer Notes [...] Never (0 point) Points 2 Interpretation Negative Vital Signs Temperature 98.6 degrees Fahrenheit 05/19/20 25 Blood pressure systolic 001 mm Hg 05/19/20 25 Blood pressure diastolic 01 mm Hg 025 Height 59 in 05/19/2025 Weight 177.2 lbs 05/19/2025 BMI 35.79 kg/m2 05/19/2025 Encounters Encounter Location Date Provider Diagnosis [facility] [address] [address] 05/19/2025 Fermín Mcintosh Jr Change in bowel function R19.4 and Rectal bleeding K62.5 Assessments Encounter Date Diagnosis (ICD Code) Assessment Notes Treatment Notes Treatment Clinical Notes Section Notes 05/19/2025 Change in bowel function (ICD-10 - R19.4) 05/19/2025 Rectal bleeding (ICD-10 - K62.5) Plan Of Treatment Medication Medication Name Sig Start Date Stop Date Notes Colyte with Flavor Packs 240 GM As directed Orally Over the specified time.; Duration: 1 day(s) 05/19/2025 Future Test Test Name Order Date COLONOSCOPY 05/19/2025 Next Appt Details Provider Name:Fermín hood Jr, 06/15/2025 10:30:00 AM, [address] [place] [address], [phone], Progress Notes * HITESH OLIVIER ADOB: 0 (54 yo F)Acc No.[id number]:05/19/2025 Progress Notes Patient: HITESH MCNEIL Provider: Kole Mcintosh MD :1970 A ge:54 Y S ex:Female Date:05/19/2025 Address:[address] [place] [address] [id number] Pcp:Roni Gunter Subjective: * Chief Complaints: * 1 . Patient presents today for IBS. * Medical History: C olonoscopy 04/29, normal including sigmoid biopsies; followup due in 10 years., Irritable bowel syndrome, Hypertension, Bipolar disorder, Hypothyroidism, HSV infection, Migraine headaches, Seizure disorder, New stimulator. * Surgical History: P artial hysterectomy , section , Carpal tunnel surgery , bunionectomy 03/03/2020, Sacral nerve stimulator, relocated to left side 04/02 08/01, sacral nerve stimulator 06/04. * Family History: F ather: alive, father has ulcerative colitis, diagnosed with Colon polyps, HTN (hypertension). M other: alive, diverticulitis, diagnosed with HTN (hypertension), Colon polyps. S iblings: alive, crohn's disease at age 22. Denies history of colon cancer, rectal cancer or liver ds. Daughter Crohn's. * Social History: T obacco Use: T obacco Use/Smoking A re you a: nonsmoker. D rugs/Alcohol: A lcohol Screen D id you have a drink containing alcohol in the past year? Y es, H ow often did you have a drink containing alcohol in the past year? 2 to 4 times a month (2 points), H ow many drinks did you have on a typical day when you were drinking in the past year??1 or 2 drinks (0 point), H ow often did you have 6 or more drinks on one occasion in the past year? N ever (0 point), P oints 2 , I nterpretation N egative. M iscellaneous: M arital status: . Occupation: works part-time. * Medications: T aking Gabapentin 300 MG Capsule 1 capsule Orally Once a day , Taking Ibuprofen 800 MG Tablet 1 tablet with food or milk as needed Orally every 8 hrs , Taking valACYclovir HCl 500 MG Tablet 1 tablet Orally every 24 hrs , Taking Lisinopril 5 MG Tablet 1 tablet Orally Once a day , Taking Levothyroxine Sodium 50 MCG Tablet 1 tablet Orally Once a day , Taking Metoprolol & Diet Manage Prod 50mg Miscellaneous 1 tablet Orally once a day , Taking Simvastatin 20 MG Tablet 1 tablet in the evening Orally once in evening , Taking lamoTRIgine 200mg Tablet 1 tablet with addition 2- 25 mg tablets Orally Once in evening , Taking Imitrex 100 MG Tablet 1 tablet as needed one time Orally Once a day , Taking Fluoxetine 40mg tablet 1 tablet with 20 mg tablet orally once a day , Taking Tylenol 325 MG Tablet 1 tablet as needed Orally every 4 hrs/prn , Notes to Pharmacist: PRN, Taking busPIRone HCl 15 MG Tablet 1 tablet Orally Twice a day , Taking Melatonin , Notes to Pharmacist: PRN, Taking FLUoxetine HCl 20 MG Capsule Orally , Taking Dicyclomine HCl 20 MG Tablet 1 tablet Orally 2-4 times a day , Taking Loperamide A-D 2 MG Tablet 1 tablet as needed Orally Four times a day , Not-Taking/PRN Fioricet prn , Not-Taking/PRN Estradiol 0.075 , Not-Taking/PRN PROzac , Not-Taking/PRN Anusol-HC 25 MG Suppository 1 suppository Rectal Twice a day , Medication List reviewed and reconciled with the patient * Allergies: P henergan, Demerol, Reglan. Objective: * Vitals: W t:177.2lbs, Ht: 59 in, BMI:35.79Index, BP:001/01mm Hg, Temp:98.6, Wt-k.38. Assessment: * Assessment: 1. C hange in bowel function - R19.4 (Primary) 2 . R ectal bleeding - K62.5? Plan: * Treatment: 2.?Rectal bleeding?Procedure: COLONOSCOPY (Ordered for 05/19/2025)* sched for 06/15/25 at 10:30 a mmacgolyte prep * Preventive Medicine: Counseling: C are goal follow-up plan: Harindre mccarthy Normal BMI Follow-up D ietary management education, guidance, and counseling, B [place] management provided Y es. * * The named appointment provid er may or may not be the originator of this progress note, and it is not deemed complete until electronically signed by the appointment provider. Sign off status: Pending * Provider: Kole Mcintosh MD Date: Generated for Chon heath/Estrellita/Sofiaitting on: 02:25 PM EDT
--- NOTE | 2025-05-25 11:46 | MHC.OFFVIS ---
Intake Visit Reasons: 2m Allergies promethazine (From PHENERGAN) Allergy (Severe, Verified 05/25/25 11:55) ALTERED MENTAL STATUS meperidine (Demerol) Allergy (Unknown, Verified 05/25/25 11:55) nausea metoclopramide (From Reglan) Allergy (Verified 05/25/25 11:55) Chest Pain Medication List - Last Reconciled 05/25/25 by Carley Medrano, MADYSON amoxicillin-pot clavulanate 875-125 mg 1 tab PO BID 5 days benzonatate 100 mg PO TID PRN buspirone 15 mg PO BID gozvloxcsu-chkxccmvbkfup-vubz 50-325-40 mg 1 tab PO Q6H PRN 30 days fluoxetine 40 mg PO QAM fluoxetine 20 mg PO DAILY fluticasone propionate 50 mcg/actuation (Flonase Allergy Relief) 1 spray intranasal BID gabapentin 100 mg PO DAILY ibuprofen 800 mg PO TID levothyroxine 50 mcg PO DAILY lidocaine 4% 1 patch topical DAILY PRN lisinopril 5 mg PO DAILY loperamide (Anti-Diarrheal (loperamide)) 2 mg PO Q6H PRN metoprolol tartrate 50 mg PO DAILY naltrexone 50 mg PO BEDTIME nitrofurantoin monohyd/m-cryst 100 mg (Macrobid) 100 mg PO BID ondansetron 4 mg PO Q8H PRN simvastatin 20 mg PO DAILY valacyclovir 500 mg PO DAILY HPI Comments Details: Increased pain to feet and legs, happens during the day, but worse at night. Unable to describe pain. Numbness and tinging continue. Taking gabapentin 100mg at bedtime without relief, unable to tolerate higher dose due to drowsiness. She did not start pregabalin. Balance off at times, but no falls. Leaving this weekend for 12-day cruise to [facility]. Walking frequently at work, working at [employer]. Migraines have been okay. Gets about 2 migraines/month. Uses butalbital as needed with good relief. Constant numbness, tingling, and pain to both feet, worse at night and disrupting sleep. Pain can be burning-type. She tried amitriptyline, but did not like how she felt with medication and stopped it. Tried gabapentin 400mg at bedtime without any improvement. No history of diabetes. She has history of alcohol use disorder in the past with heavy alcohol use in 30s-40s, currently drinking alcohol (1 glass of wine) on occasion. No back pain. She has SCC (x5 surgeries) for fecal incontinence. Her sister also has neuropathy of unknown cause, no history of diabetes in sister. ? Started with numbness, tingling, and discomfort in both feet constantly affecting her sleep in early 2024, without difficulty walking. Migraines relieved by Fioricet or Excedrin Migraine. Occasional dizziness for about 5 minutes with lightheadedness. Loses her balance when turning. Was having 2-3 minutes of dizziness 1-2x/day on turning with off balance feeling, usually on moving too fast. No syncope. Had possible syncopal episode and fell on 09/12/2018 after passing out in shower and falling out of tub, lying on side and bruised left eye. No tongue bite. CT negative, EKG normal. Regular headache when stressed. [facility] Medical History Carpal tunnel syndrome of right wrist Bipolar disorder Insomnia Migraine Depression Bipolar 1 disorder High cholesterol Hypertension Surgical History History of bunionectomy of right great toe History of carpal tunnel surgery of right wrist History of carpal tunnel surgery of left wrist History of hysterectomy History of section Family History Mother No problems noted. Father No problems noted. 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 Review of Systems Const Denies chills, Denies daytime sleepiness, Reports difficulty sleeping, Denies fatigue, Denies fever(s), Denies frequent falls, Reports headache(s), Denies increased appetite, Denies poor appetite, Denies snoring, Denies weakness, Denies weight gain and Denies weight loss Eyes Denies loss of vision ENT Denies vertigo, Denies dizziness, Reports headache(s) and Denies neck pain Card Denies chest pain at rest, Denies chest pain with activity, Denies syncope, Denies leg edema, Denies palpitations, Denies dyspnea and Denies dyspnea on exertion Resp Denies cough, Denies dyspnea, Denies dyspnea on exertion and Denies snoring GI Denies abdominal pain, Denies constipation, Denies heartburn, Denies diarrhea and Denies nausea Denies urinary frequency, Denies urinary incontinence and Denies urinary urgency Musc Denies abnormal gait, Denies back pain, Denies myalgias, Denies arthralgias, Denies neck pain, Reports numbness and Reports tingling Neuro Denies abnormal gait, Denies vertigo, Denies dizziness, Denies syncope, Denies frequent falls, Reports headache(s), Denies lack of coordination, Denies loss of vision, Denies memory loss, Reports numbness, Denies Other visual disturbances, Denies restless legs, Denies seizure-like activity, Reports tingling, Denies paresthesias, Denies tremor(s) and Denies weakness Psych Reports anxiety, Reports depression, Denies auditory hallucinations, Denies memory loss and Denies visual hallucinations Endo Denies fatigue and Denies palpitations Physical Exam Const Other: General Appearance:? normal, in no acute distress. Heart:? S1, S2 normal, no murmurs. Lungs:? clear anteriorly and posteriorly. Musculoskeletal:? normal. Extremities:? no edema. Psych:? alert, oriented, cognitive function intact, cooperative with exam. Neuro Other: Abnormal Neurological Findings:?AJs absent. Decreased pin prick in toes.? Mental Status: alert and oriented X 3. Normal attention, orientation, memory, and affect. Cranial Nerves: Pupils are equal, round, and reactive to light. External ocular muscles are intact. Visual rodriguez are full, no ptosis. Face is symmetrical, no facial weakness or droop. Facial sensations are normal. Tongue protrudes in midline. Palate elevates symmetrically. Shoulder shrugging is normal Motor Examination: As above, otherwise normal muscle tone, bulk and strength. No atrophy or fasciculations. No drift of the extended upper extremities. DTR 2+. Plantars are flexor. Sensory Exam: As above, otherwise normal light touch, temperature, pinprick, vibration, and joint-position sensations. Rhomberg sign is absent. Coordination: No ataxia. No titubation. Gait Exam: Within normal limits. Cerebellar Signs: Harcoa-qa-felz is okay. Extrapyramidal System: No tremor, rigidity with normal facial expressions. No bradykinesia. No bradyphrenia. Normal arm swing and posture. No propulsion or retropulsion. Speech: Normal. Results Reviewed Results Reviewed: Laboratory Tests 03/23/25 03/26/25 04/13/25 12:36 06:30 11:52 WBC 9.3 RBC 3.86 L Hgb 11.9 L Hct 36.7 L MCV 95.1 MCH 30.8 MCHC 32.4 RDW 14.0 Plt Count 329 MPV 10.4 ESR 46 H Sodium 142 Potassium 4.1 Chloride 104 Carbon Dioxide 27 Anion Gap 15 BUN 13 Creatinine 0.95 Estimated GFR > 60 Random Glucose 82 Hemoglobin A1c % 5.7 Calcium 9.4 Total Bilirubin 0.2 AST 25 ALT 25 Alkaline Phosphatase 107 Total Protein 7.8 Albumin 4.7 Vitamin B12 1184 H Folate 8.1 Ur Arsenic 24 Hour <10 Urine Cadmium 24 Hour <0.5 Urine Lead 24 Hour <10 Urine Mercury 24 Hour <4 IgG Total 1208 IgA Total 221 IgM 153 MIREYA Interpretation SEE NOTE WANDA Screen NEGATIVE Lyme Screen IgG & IgM <0.90 Lyme Progressive Test TNP 04/13/25 20:19 WBC 10.4 RBC 3.93 L Hgb 12.3 Hct 36.5 L MCV 92.9 MCH 31.3 MCHC 33.7 RDW 13.9 Plt Count 301 MPV 9.9 01/06/25 NCV/EMG LE Severe axonal sensory motor diffuse peripheral neuropathy in the lower extremities. EMG in the left L4-S1 innervated muscles is consistent with neuropathic changes. Assessment & Plan Assessment & Plan (1) Migraine: Code(s): G43.909 - Migraine, unspecified, not intractable, without status migrainosus Category: Medical Qualifiers: Migraine type: unspecified Status migrainosus presence: without status migrainosus Intractability: not intractable Qualified Code(s): G43.909 - Migraine, unspecified, not intractable, without status migrainosus Plan: Continue wzcbinnrwp-XKCK-trah 50-325-40mg 1 tablet as needed q6h for headache #20 for 30 days (2) Peripheral neuropathy: Code(s): G62.9 - Polyneuropathy, unspecified Category: Medical Qualifiers: Peripheral neuropathy type: polyneuropathy, unspecified Qualified Code(s): G62.9 - Polyneuropathy, unspecified Plan: Lab results reviewed. She was currently taking gabapentin 100mg at bedtime (and tried up to 400mg in the past) without improvement, unable to tolerate higher dose due to drowsiness. She was not able to start pregabalin that was ordered at last visit. Start pregabalin 50mg 1 tablet twice a day, use/side effects reviewed. Plan Meds tried: amitriptyline, gabapentin Medications: New pregabalin 50 mg PO BID 60 caps 2RF 30 days Coding Level of Care Code Est Pt Level 4 (93946) Diagnoses Migraine without status migrainosus, not intractable, unspecified migraine type G43.909 Migraine type: unspecified Status migrainosus presence: without status migrainosus Intractability: not intractable Peripheral polyneuropathy G62.9 Peripheral neuropathy type: polyneuropathy, unspecified
--- OUTSIDE RECORDS SUMMARY | 2025-05-25 14:25 | XMS_ITS | Patient Health Record ---
Author Organization [facility] [place] Address [address] [facility] [place] [address] Care Team Providers Care Hourly Team Members Name Role Phone Lyric FELIX, Roni Primary Care Provider Katina Carmona Unavailable [phone] Allergies Allergen (clinical drug ingredient) Drug/Non Drug Allergy documented on EMR Reaction Allergy Type Onset Date Status meperidine Demerol Unknown Drug Allergy Active promethazine Phenergan Unknown Drug Allergy Acti ve metoclopramide Reglan Unknown Drug Allergy Ac tive Reason For Referral No Information Medications Medication SIG (Take, Route, Frequency, Duration) Notes Start Date End Date Status busPIRone HCl 15 MG 1 tablet Orally Twic e a day Active Ammonium Lactate 12 % 1 application to affected area Externally to feet Twice a day; Duration: 30 days Not-Taking Naltrexone HCl Not-T aking Work Note . . . Can return to rk 04/04/20 without restrictions 03/29/2020 Not-Taking Bactrim DS 800-160 MG 1 tablet Orally ev tyesha 12 hrs; Duration: 7 days 01/03/2018 Not-Taking Doxycycline Hyclate 100 MG 1 tablet Orally every 12 hrs; Duration: 7 days 11/11/2017 Not-Taking Bactrim DS 800-160 MG 1 tablet Orally ev tyesha 12 hrs; Duration: 10 day(s) 11/06/2017 Not-Taking Cephalexin 500 MG 1 tablet Orally Twic e a day; Duration: 7 days Not-Taking Bactrim DS 800-160 MG 1 tablet Orally Tw ice a day; Duration: 7 days 02/24/2018 Not-Taking Amitriptyline HCl 25 MG 1 tablet at bedt naman Orally bed time; Duration: 30 day(s) Not-Taking Bactrim DS 800-160 MG 1 tablet Orally ev tyesha 12 hrs; Duration: 5 days 01/07/2019 Not-Taking lamoTRIgine 200 MG Orally Once a day Not-Taking lamoTRIgine 25 MG Orally No t-Taking Imitrex 100 MG 1 tablet as needed o ne time Orally Once a day Not-Takin g traMADol HCl PRN Not-Ty ing Ibuprofen 800 MG 1 tablet Orally Thre e times a day; Duration: 30 day(s) Not-Taking Ammonium Lactate 12 % 1 application Externally to affected areas of dry skin to feet except for between the toes Twice a day; Duration: 30 days Active Medrol shauna 4mg as directed orally a s directed; Duration: 6 days 02/19/2025 Active Ibuprofen 600 MG 1 tablet with food o r milk as needed Orally Three times a day; Duration: as needed 11/08/2017 Active Neurontin 300 MG 1 capsule Orally Onc e a day at night; Duration: 60 days 08/25/2024 Active Medrol shauna 4mg as directed orally a s directed; Duration: 6 days Active Work Note . . . Pt is excused fr om work due to painful foot condition on Saturday06/25/15 06/24/2015 Not-Taking LaMICtal 250 mg 1 tablet Orally Once a day; Duration: 30 day(s) Not-Taking levoFLOXacin 500 MG 1 tablet Orally Once a day; Duration: 10 day(s) 10/08/2022 Not-Taking Work Note-Appointment . . . [facility]; Duration: . 10/02/2022 Not-Taking Keflex 500 MG 1 capsule Orally chad ry 12 hrs; Duration: 7 days 10/02/2022 Not-Taking Doxycycline Not-Taki ng Piroxicam 20 MG TAKE 1 CAPSULE BY [facility] EVERY DAY WITH FOOD *NOT COVERED USED A DISC CARD*; Duration: 30 Not-Taking Physical Therapy . . . 2-3x/week; Duration: 3-4 weeks 11/01/2023 Not-Taking Lidocaine 5 % 1 application to affected area as needed Externally Three times a day; Duration: 30 days 04/30/2013 Not-Taking valACYclovir HCl 500 MG Orally Once a day Active Ciclopirox Olamine 0.77 % 1 application Externally Twice a day; Duration: 30 days Not-Taking Lidoderm 5 % 1 patch to intact sk in remove after 12 hours Externally Once a day; Duration: 30 days 02/23/2013 Not-Taking Simvastatin 20 MG 1 tablet in the even ing Orally Once a day; Duration: 30 day(s) Active Ciclopirox Olamine 0.77% external Apply to effected areas twice a day; Duration: 30 days 07/18/2015 Not-Takin g PROzac 60 mg 1 capsule in the morning Orally Once a day; Duration: 30 day(s) Active Physical Therapy . . . 2-3x/week; Duration: 3-4 weeks 07/15/2015 Not-Taking Metoprolol Tartrate 50 MG 1 tablet Orall y Once a day; Duration: 30 day(s) Active Lisinopril 5 MG 1 tablet Orally Once a day; Duration: 30 day(s) Active Levothyroxine Sodium 50 MCG 1 tablet on an empty stomach in the morning Orally Once a day; Duration: 30 day(s) Active PROzac 20 MG 1 capsule Orally Onc e a day Active Gabapentin 100 MG 1-2 capsule at bedti me Orally Once a day Active Immunizations Vaccine [...] nk containing alcohol in the past year? Daily or almost daily (4 points) How many drinks did you have on a typical day when you were drinking in the past year? 1 or 2 drinks (0 point) How often did you have six o r more drinks on one occasion in the past year? Never (0 point) Points 4 Interpretation Positive Problems Problem Type SNOMED Code ICD Code Onset Dates Problem Status W/U Status Risk Notes Problem Idiopathic peripheral neuropathy (94864638) Idiopathic peripheral neuropathy (G60.9) Active confirmed Vital Signs Blood pressure diastolic 65 mm Hg 05/11/2025 Height 4ft 11in in 05/11/2025 Blood pressure systolic 120 mm Hg 05/11/2025 Weight 181 lbs 05/11/2025 BMI 36.55 kg/m2 05/11/2025 Encounters Encounter Location Date Provider Diagnosis [address] [address] 05/29/2024 Katina Mattaa Onychomycosis B35.1 ; Neuritis of right foot G57.91 ; Pain in right toe(s) M79.674 ; Pain in left toe(s) M79.675 and Neuritis of left foot G57.[address] [address] 08/25/2024 Katina Perica Neuritis of right foot G57.91 ; Achilles tendinitis of left lower extremity M76.62 ; Onychomycosis B35.1 ; Pain in right toe(s) M79.674 ; Pain in left toe(s) M79.675 ; Neuritis of left foot G57.92 ; Pain of left heel M79.672 ; Exostosis of left posterior calcaneus M77.32 and Short Achilles tendon (acquired), left ankle M67.[address] [address] 12/10/2024 Katina Maxwell Pain in right toe(s) M79.674 ; Onychomycosis B35.1 and Pain in left toe(s) M79.[address] [address] 02/19/2025 Katina Maxwell Achilles tendinitis of left lower extremity M76.62 ; Onychomycosis B35.1 ; Pain in right toe(s) M79.674 ; Pain in left toe(s) M79.675 ; Pain of left heel M79.672 ; Exostosis of left posterior calcaneus M77.32 ; Short Achilles tendon (acquired), left ankle M67.02 and Idiopathic peripheral neuropathy G60.[address] [address] 04/27/2025 Katina Mattaa Onychomycosis B35.1 ; Contusion of right great toe with damage to nail, initial encounter S90.211A ; Pain in right toe(s) M79.674 ; Pain in left toe(s) M79.675 ; Xerosis of skin L85.3 and Idiopathic peripheral neuropathy G60.[address] [facility] [address] 05/11/2025 Katina Maxwell Xerosis of skin L85. 3 and Contusion of right great toe with damage to nail, subsequent encounter S90.211D [facility] [address] 08/24/2024 Katina Maxwell [facility] [address] 10/29/2024 Katina Perica [facility] [address] 02/19/2025 Katina Maxwell Assessments Encounter Date Diagnosis [...] - M76.62) 02/19/2025 Onychomycosis (ICD-10 - B35.1) 04/27/2025 Contusion of right great toe with damage to nail, initial encounter (ICD-10 - S90.211A) 04/27/2025 Onychomycosis (ICD-10 - B35.1) 05/11/2025 Contusion of right great toe with damage to nail, subsequent encounter (ICD-10 - S90.211D) 05/11/2025 Xerosis of skin (ICD-10 - L85.3) 04/27/2025 Pain in right toe(s) (ICD-10 - M79.674) 02/19/2025 Pain in right toe(s) (ICD-10 - M79.674) 12/10/2024 Onychomycosis (ICD-10 - B35.1) 08/25/2024 Onychomycosis (ICD-10 - B35.1) 05/29/2024 Pain in right toe(s) (ICD-10 - M79.674) 05/29/2024 Pain in left toe(s) (ICD-10 - M79.675) 08/25/2024 Pain in right toe(s) (ICD-10 - M79.674) 12/10/2024 Pain in left toe(s) (ICD-10 - M79.675) 04/27/2025 Pain in left toe(s) (ICD-10 - M79.675) 02/19/2025 Pain in left toe(s) (ICD-10 - M79.675) 04/27/2025 Xerosis of skin (ICD-10 - L85.3) 08/25/2024 Pain in left toe(s) (ICD-10 - M79.675) 02/19/2025 Pain of left heel (ICD-10 - M79.672) 05/29/2024 Neuritis of left foot (ICD-10 - G57.92) 08/25/2024 Neuritis of left foot (ICD-10 - G57.92) 02/19/2025 Exostosis of left posterior calcaneus (ICD-10 - M77.32) 04/27/2025 Idiopathic peripheral neuropathy (ICD-10 - G60.9) 02/19/2025 Short Achilles tendon (acquired), left ankle [...] X ray : Foot, right 3V 02/23/2013 [id number] NAIL, 6 OR MORE 01/03/2018 58900-[id number] NAIL, 6 OR MORE 03/07/2018 51019-Jqilegwb Plate 02/17/2018 73801-Upufvtfj Plate 01/03/2018 35088-Adibbima Plate 06/18/2014 81122- Debride <25 sq cm 11/15/2017 48261-GAOLNCZ SKIN/TISSUE 11/06/2017 20758 I&D ABSCESS- SIMPLE,SINGLE 015 14391 I&D ABSCESS- SIMPLE,SINGLE 015 54670 I&D ABSCESS- SIMPLE,SINGLE 018 98554 I&D ABSCESS- SIMPLE,SINGLE 014 63978 I&D ABSCESS- SIMPLE,SINGLE 018 63454 I&D ABSCESS- SIMPLE,SINGLE 023 12970, [id number]-VLPCB/INJECT, JOINT/BURSA 0 10/13/2019 Next Appt Details Provider Name:Katina mccarthy, 08/02/2025 03:30:00 PM, [address] [place], [address], Insurance Providers Payer Name Payer Address Payer Phone Subscriber Number Group Number Insured Name Patient Relationship to Insured Coverage Start Date Coverage End Date Medicare [employer] [address] [place] [address] [id number] Mary Zarate Self - patient is the [...]
--- OUTSIDE RECORDS SUMMARY | 2025-05-25 14:25 | XMS_ITS | Patient Health Record ---
Author Organization [facility] Address [address] [place] [address] Care Team Providers Care Pelt Salter Name Role Phone Roni Gunter Primary Care Provider Fermín Monreal Jr Unavailable Allergies Allergen (clinical drug ingredient) Drug/Non Drug Allergy documented on EMR Reaction Allergy Type Onset Date Status metoclopramide Reglan Unknown Drug Allergy Ac tive promethazine Phenergan Unknown Drug Allergy Acti ve meperidine Demerol Unknown Drug Allergy Active Reason For Referral No Information Medications Medication SIG (Take, Route, Frequency, Duration) Notes Start Date End Date Status Loperamide A-D 2 MG 1 tablet as needed Orally Four times a day; Duration: 30 days Active Metoprolol & Diet Manage Prod 50mg 1 tablet Orally once a day Active Fioricet prn Not-Ty ing Simvastatin 20 MG 1 tablet in the even ing Orally once in evening Active Estradiol 0.075 Not- Taking lamoTRIgine 200mg 1 tablet with additi on 2- 25 mg tablets Orally Once in evening Active PROzac Not-Taking Colyte with Flavor Packs 240 GM As directed Orally Over the specified time.; Duration: 1 day(s) 05/19/2025 Active Imitrex 100 MG 1 tablet as needed o ne time Orally Once a day Active Anusol-HC 25 MG 1 suppository Rectal Twice a day; Duration: 14 day(s) 02/04/2015 Not-Taking Fluoxetine 40mg 1 tablet with 20 mg tablet orally once a day Active Tylenol 325 MG 1 tablet as needed Orally every 4 hrs/prn PRN Active Gabapentin 300 MG 1 capsule Orally Onc e a day Active busPIRone HCl 15 MG 1 tablet Orally Twic e a day Active Ibuprofen 800 MG 1 tablet with food o r milk as needed Orally every 8 hrs Active Melatonin PRN Active valACYclovir HCl 500 MG 1 tablet Orally every 24 hrs Active FLUoxetine HCl 20 MG Orally Active Lisinopril 5 MG 1 tablet Orally Once a day Active Dicyclomine HCl 20 MG 1 tablet Orally 2- 4 times a day; Duration: 30 days 11/14/2022 Active Levothyroxine Sodium 50 MCG 1 tablet [...] Unknown 09/11/2021 Administered Influenza Unknown 07/02/2023 Administered Influenza Unknown 06/02/2024 Administered Social History Alcohol Screen Question Answer [...] Problem Status W/U Status Risk Notes Problem Colon cancer screening (433661877) Colon cancer screening (Z12.11) Active confirmed Problem Rectal bleeding (14101973) Rectal bleeding (K62.5) Active confirmed Problem Flatulence, eructation and gas pain (762778884) Bloating (R14.0) Active confirmed Problem Irritable bowel syndrome with diarrhea (295975780) Irritable bowel syndrome with diarrhea (K58.0) Active confirmed Problem Laboratory test result abnormal (421460443) Abnormal levels of other serum enzymes (R74.8) Active confirmed Problem Diarrhea (23549046) Diarrhea, unspecified type (R19.7) Active confirmed Problem Irritable bowel syndrome (15064390) Irritable bowel syndrome with both constipation and diarrhea (K58.2) Active confirmed Problem Incontinence of feces (43047480) Incontinence of feces, unspecified fecal incontinence type (R15.9) Active confirmed Problem Right upper quadrant pain (358930690) RUQ pain (R10.11) Active confirmed Problem Laboratory test result abnormal (268726715) Elevated pancreatic enzyme (R74.8) Active confirmed Problem Blood chemistry abnormal (378650364) Abnormal blood chemistry (R79.9) Active confirmed Vital Signs Temperature 98.6 degrees Fahrenheit 05/19/2025 Blood pressure diastolic 01 mm Hg 05/19/2025 Height 59 in 05/19/2025 Blood pressure systolic 001 mm Hg 05/19/2025 Weight 177.2 lbs 05/19/2025 BMI 35.79 kg/m2 05/19/2025 Encounters Encounter Location Date Provider Diagnosis [facility] [address] [place] [address] 05/19/2025 Fermín Mcintosh Jr Change in bowel function R19.4 and Rectal bleeding K62.5 [facility] [address] [place] [address] 04/13/2025 Fermín Mcintosh Jr Irritable bowel syndrome with both constipation and diarrhea K58.2 Assessments Encounter Date Diagnosis (ICD Code) Assessment Notes Treatment Notes Treatment Clinical Notes Section Notes 05/19/2025 Rectal bleeding (ICD-10 - K62.5) 05/19/2025 Change in bowel function (ICD-10 - R19.4) 04/13/2025 Irritable bowel syndrome with both constipation and diarrhea (ICD-10 - K58.2) Plan Of Treatment Pending Test Test Name [...] Name Order Date COLONOSCOPY 01/30/2012 COLONOSCOPY 01/29/2018 COLONOSCOPY 05/19/2025 Next Appt Details Provider Name:Fermín hood Jr, 06/15/2025 10:30:00 AM, [address] [place] [address] , [place], [place], [id number], Insurance Providers Payer Name Payer Address Payer Phone Subscriber Number Group Number Insured Name Patient Relationship to Insured Coverage Start Date Coverage End Date MEDICARE OF [place] [address] [place] [address] [id number] HITESH OLIVIER Self - patient is the insured MEDICAID OF [facility] [address] [place] [address] [phone] [id number] HITESH OLIVIER Self - patient is the insured Medical (General) History Medical History History ICD Code colonoscopy 04/29, normal inc luding sigmoid biopsies; followup due in 10 years. irritable bowel syndrome hypertension bipolar disorder Hypothyroidism HSV infection migraine headaches seizure disorder new stimulator Surgical History Surgery Date(Month/Year) sacral nerve stimulator 06/04 Sacral nerve stimulator, relocated to [facility] 04/02 08/01 bunionectomy 03/03/2020 Carpal tunnel surgery section Partial hysterectomy
== END 2025-05-25 12:12 | disposition home or self-care (01) ==
LOC: HO.HSM 11:45
PROVIDERS: PCP Internal Medicine; Visit Provider Registered Nurse
DX: G43.909 Migraine, unspecified, not intractable, without status migrainosus (principal); G62.9 Polyneuropathy, unspecified
CPT/HCPCS: 99214

== ENCOUNTER → 2025-05-25 11:45 | Outpatient (BNVA) | payer MEDICARE, MEDICAID, SELFPAY | PROVIDERS: PCP Internal Medicine; Visit Provider Registered Nurse | DX: G43.909 Migraine, unspecified, not intractable, without status migrainosus (principal); G62.9 Polyneuropathy, unspecified | CPT/HCPCS: 99212 ==

== ENCOUNTER 2025-06-15 07:13 | Day surgery (SDC) | payer MEDICARE, MEDICAID, SELFPAY ==
[2025-06-11 14:58] VITALS: BMI 35.8
--- NOTE | 2025-06-14 08:39 | HO.ANESPROP2 ---
Documented by User: Ann Friend NP 06/14/25 08:40 HPI - Anesthesia Eval Consult details Narrative: 54yo F for Colonoscopy PMFSH Active Problems Active Problems: All Active Problems Peripheral neuropathy (Acute) Medial epicondylitis of right elbow (Acute) Migraine (Acute) Past Medical History Medical History Carpal tunnel syndrome of right wrist Insomnia Migraine Depression Bipolar 1 disorder High cholesterol Hypertension Family History Family History Mother No problems noted. Father No problems noted. Sister Neuropathy Surgical History Surgical History Status post insertion of spinal cord stimulator H/O colonoscopy History of bunionectomy of right great toe History of carpal tunnel surgery of right wrist History of carpal tunnel surgery of left wrist History of hysterectomy History of section Social History Social History Alcohol intake: former Patient Tobacco Use Status: Former Tobacco user Use of substances other than those prescribed or required for medical reasons: No Substance Use Type: Marijuana Are you DNR?: No Advance Directives: No Advance Directives Information Provided: Yes Current occupational status: employed 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 Meds Allergies Allergy/AdvReac Type Severity Reaction Status Date / Time promethazine (From PHENERGAN) Allergy Severe ALTERED Verified 06/15/25 08:13 MENTAL STATUS meperidine (Demerol) Allergy Unknown nausea Verified 06/15/25 08:13 metoclopramide (From Reglan) Allergy Chest Pain Verified 06/15/25 08:13 Home Medications ?Medication ?Instructions ?Recorded ?Confirmed ?Last Taken ?Type buspirone 15 mg tablet 15 mg PO BID 10/28/20 06/15/25 Unknown History fluoxetine 20 mg capsule 20 mg PO DAILY 10/28/20 06/15/25 Unknown History fluoxetine 40 mg capsule 40 mg PO QAM 10/28/20 06/15/25 Unknown History ibuprofen 800 mg tablet 800 mg PO TID 10/28/20 06/15/25 Unknown History levothyroxine 50 mcg tablet 50 mcg PO DAILY 10/28/20 06/15/25 Unknown History lisinopril 5 mg tablet 5 mg PO DAILY 10/28/20 06/15/25 Unknown History metoprolol tartrate 50 mg tablet 50 mg PO DAILY 10/28/20 06/15/25 Unknown History simvastatin 20 mg tablet 20 mg PO DAILY 10/28/20 06/15/25 Unknown History valacyclovir 500 mg tablet 500 mg PO DAILY 10/28/20 06/15/25 Unknown History gabapentin 100 mg capsule 100 mg PO DAILY 05/25/25 06/15/25 Unknown History Exam Height,Weight and Vital Signs: Height 4 ft 11 in Weight 80.377 kg Assessment and Plan Assessment Anesthesia Assessment: Chart Reviewed Documented by User: Hallie Jaramillo MD 06/15/25 08:29 PMFSH Past Medical History Medical History Carpal tunnel syndrome of right wrist Insomnia Migraine Depression Bipolar 1 disorder High cholesterol Hypertension Family History Family History Mother No problems noted. Father No problems noted. Sister Neuropathy Family history of problems with anesthesia: No Surgical History Surgical History Status post insertion of spinal cord stimulator H/O colonoscopy History of bunionectomy of right great toe History of carpal tunnel surgery of right wrist History of carpal tunnel surgery of left wrist History of hysterectomy History of section History of Problems with Anesthesia: No Social History Social History Alcohol intake: former Patient Tobacco Use Status: Former Tobacco user Use of substances other than those prescribed or required for medical reasons: No Substance Use Type: Marijuana Are you DNR?: No Advance Directives: No Advance Directives Information Provided: Yes Current occupational status: employed 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 Meds Allergies Allergy/AdvReac Type Severity Reaction Status Date / Time promethazine (From PHENERGAN) Allergy Severe ALTERED Verified 06/15/25 08:13 MENTAL STATUS meperidine (Demerol) Allergy Unknown nausea Verified 06/15/25 08:13 metoclopramide (From Reglan) Allergy Chest Pain Verified 06/15/25 08:13 Home Medications ?Medication ?Instructions ?Recorded ?Confirmed ?Last Taken ?Type buspirone 15 mg tablet 15 mg PO BID 10/28/20 06/15/25 Unknown History fluoxetine 20 mg capsule 20 mg PO DAILY 10/28/20 06/15/25 Unknown History fluoxetine 40 mg capsule 40 mg PO QAM 10/28/20 06/15/25 Unknown History ibuprofen 800 mg tablet 800 mg PO TID 10/28/20 06/15/25 Unknown History levothyroxine 50 mcg tablet 50 mcg PO DAILY 10/28/20 06/15/25 Unknown History lisinopril 5 mg tablet 5 mg PO DAILY 10/28/20 06/15/25 Unknown History metoprolol tartrate 50 mg tablet 50 mg PO DAILY 10/28/20 06/15/25 Unknown History simvastatin 20 mg tablet 20 mg PO DAILY 10/28/20 06/15/25 Unknown History valacyclovir 500 mg tablet 500 mg PO DAILY 10/28/20 06/15/25 Unknown History gabapentin 100 mg capsule 100 mg PO DAILY 05/25/25 06/15/25 Unknown History Exam Airway Mallampati Class: II TM Dist: >3cm Neck ROM: Full Heart: rrr Lungs: cta Assessment and Plan Assessment Anesthesia Assessment: Anesthesia Plan Discussed Final Anesthetic Review Family History of Problems with Anesthesia: No History of Problems with Anesthesia: No NPO: Yes ASA Class: III Final Preanesthetic Review: No Changes in Pt Med Stat, Meds/Allgs Chart Reviewed, Consent Obtained/Reviewed and Anes Risks/Benef Reviewed Patient Risk: Intermediate Procedure Risk: Low Anesthetic Plan Anesthetic Plan: MAC: and Agree w/ Assess. and Plan Disposition: Standard PACU
[2025-06-15 08:14] VITALS: BP 126/68; PULSE 63; RESP 15; TEMP 36.7; O2SAT 98; BMI 35.2
[2025-06-15] MEDS: Lactated Ringers 1,000 ML 100 ML IVCONT (08:29)
--- NOTE | 2025-06-15 08:48 | MHC.SHP ---
Pre-Procedural Eval Section A - 24 Hr Update-Section A only Date of Service: 06/15/25 Section B - Complete if H&P > 30 days Chief Complaint: rectal bleeding,Change in bowel habit Details of Present Illness: see H&P no changes Relevant Family History (Specify if Yes): No Relevant Social History: None Present Medications: see Short Stay Collaborative assessment Medical History: No relevant PMH History of Previous Operations: No relevant previous surgery Allergies: Allergies Allergy/AdvReac Type Severity Reaction Status Date / Time promethazine (From PHENERGAN) Allergy Severe ALTERED Verified 06/15/25 08:13 MENTAL STATUS meperidine (Demerol) Allergy Unknown nausea Verified 06/15/25 08:13 metoclopramide (From Reglan) Allergy Chest Pain Verified 06/15/25 08:13 Review of Systems Sugical H&P ROS: Negative: Constitution, Cardiovascular, Respiratory, Neurological, Psychiatric, Hem-Onc, Allergic/Immunologic, Gastrointestinal, Genitourinary, Musculoskeletal, Integumentary, Endocrine and Eyes/Ears/Nose/Throat Exam Surgical H&P Exam: Normal: HEENT, Normal: Heart, Normal: Lungs, Normal: Extremities, Normal: Abdomen, Normal: Skin and Normal: Neurological Plan Diagnosis/Plan: Unchanged I have reviewed the history and physical and performed a pertinent physical examination on my patient. No changes have occurred unless specified. Time Spent With Patient Time: Total time managing care of this patient today ____ minutes.
[2025-06-15 09:34] VITALS: BP 111/46; PULSE 70; RESP 16; TEMP 36.2; O2SAT 98
[2025-06-15 09:45] VITALS: BP 120/72; PULSE 70; RESP 16; O2SAT 98
[2025-06-15 10:00] VITALS: BP 118/71; PULSE 70; RESP 16; O2SAT 98
--- NOTE | 2025-06-15 10:01 | OP_ITS ---
DATE OF SERVICE: 06/15/2025 SURGEON: Fermín Mcintosh MD INDICATIONS: Colon cancer screening and rectal bleeding. PREOPERATIVE DIAGNOSIS: POSTOPERATIVE DIAGNOSIS: PROCEDURE PERFORMED: Colonoscopy to the terminal ileum with biopsy. ESTIMATED BLOOD LOSS: COMPLICATIONS: ANESTHESIA: Monitored anesthesia care. ASSISTANTS: SPECIMENS: DESCRIPTION OF PROCEDURE: A history and physical performed. Risks and benefits of the procedure were explained to the patient. Informed consent was obtained. The patient was placed in the left lateral decubitus position. A digital rectal exam was performed and showed decreased sphincter tone. The Olympus pediatric video colonoscope was introduced into the rectum and advanced to the cecum. The cecum was identified by transillumination, palpation, and identification of ileocecal valve. Examination was performed. The scope was removed. She tolerated the procedure well and was returned to recovery in stable condition. FINDINGS: The terminal ileum was briefly glimpsed and appeared normal. The visualized colonic mucosa was normal. The quality of the prep was good. There was mild diverticulosis involving the sigmoid. Biopsies were obtained randomly from the sigmoid because of the patient's history. Retroflexed examination showed small internal hemorrhoids. IMPRESSION: Normal colonoscopy. RECOMMENDATIONS: 1. Follow up the biopsy results. 2. Repeat colonoscopy is recommended in 10 years for average-risk individuals. . MD SYBIL Bright/GAY / [id number]
== END 2025-06-15 10:38 | disposition home or self-care (01) ==
PROVIDERS: PCP Internal Medicine; Visit Provider Internal Medicine Gastroenterology
PROC: 0DJD8ZZ Inspection of Lower Intestinal Tract, Via Natural or Artificial Opening Endoscopic (ICD-10-PCS; CPT 45378; principal; 2025-06-15 09:00)
DX: R19.4 Change in bowel habit (principal); K62.5 Hemorrhage of anus and rectum; Z83.718 Family history of other colon polyps
CPT/HCPCS: 45380; 88305; J2704